=== PATIENT | male | born 1945 | race Caucasian/White ===

== ENCOUNTER → 2018-03-05 | Outpatient (CLI) | payer OTHER | LOC: M RAD 11:58 | DX: M54.5 Low back pain (principal); G25.0 Essential tremor | CPT/HCPCS: 70551 ==

== ENCOUNTER 2018-04-30 09:07 | Outpatient (CLI) | payer OTHER ==
[2018-04-30] MEDS ORDERED: PROHANCE 279.3MG/ML 15ML VIAL (A9576) As Ordered (09:26)
[2018-04-30] MEDS ORDERED: PROHANCE 279.3MG/ML 5ML VIAL (A9576) As Ordered (09:26)
[2018-04-30 09:57] LABS: BEDSIDE GLUCOSE 148 MG/DL (83-110)
[2018-04-30] MEDS ORDERED: MIDAZOLAM INJ 2 MG/2 ML VIAL (J2250) As Ordered (09:58)
[2018-04-30] MEDS ORDERED: ONDANSETRON 4MG/2ML VIAL (J2405) IV (11:30)
[2018-04-30] MEDS ORDERED: LR 1,000 ML IV (11:30)
== END 2018-04-30 11:42 | disposition home or self-care (01) ==
LOC: M SDC 09:07
DX: H81.8X9 Other disorders of vestibular function, unspecified ear (principal); G31.9 Degenerative disease of nervous system, unspecified; I67.81 Acute cerebrovascular insufficiency; M19.90 Unspecified osteoarthritis, unspecified site; H91.90 Unspecified hearing loss, unspecified ear; F41.9 Anxiety disorder, unspecified; Z88.5 Allergy status to narcotic agent; Z79.899 Other long term (current) drug therapy; Z79.4 Long term (current) use of insulin; Z79.82 Long term (current) use of aspirin; Z98.890 Other specified postprocedural states
CPT/HCPCS: 99156

== ENCOUNTER 2018-07-24 08:10 | Day surgery (SDC) | payer OTHER ==
[2018-07-24] MEDS: NS 1,000 ML IV (07:00)
[2018-07-24] MEDS ORDERED: PROPOFOL 200 MG/20 ML VIAL As Ordered ×2 (08:30→10:11)
[2018-07-24] MEDS ORDERED: LIDOCAINE 2% INJ 100 MG/5 ML SDV (FOR ANES.) As Ordered (08:30)
[2018-07-24] MEDS ORDERED: fentaNYL 100 MCG/2 ML INJECTION (J3010) As Ordered (09:50)
== END 2018-07-24 11:15 | disposition home or self-care (01) ==
LOC: M OPP 08:10
DX: Z12.11 Encounter for screening for malignant neoplasm of colon (principal); K64.0 First degree hemorrhoids; K57.30 Diverticulosis of large intestine without perforation or abscess without bleeding; K22.8 Other specified diseases of esophagus; K31.89 Other diseases of stomach and duodenum; R12 Heartburn; R93.3 Abnormal findings on diagnostic imaging of other parts of digestive tract; E11.9 Type 2 diabetes mellitus without complications; G47.30 Sleep apnea, unspecified; I10 Essential (primary) hypertension; E78.00 Pure hypercholesterolemia, unspecified; F41.9 Anxiety disorder, unspecified; Z79.4 Long term (current) use of insulin; Z79.82 Long term (current) use of aspirin; Z79.899 Other long term (current) drug therapy; Z79.891 Long term (current) use of opiate analgesic; Z88.5 Allergy status to narcotic agent; Z98.1 Arthrodesis status; Z87.891 Personal history of nicotine dependence
CPT/HCPCS: G0121

== ENCOUNTER → 2020-08-02 | Outpatient (CLI) | payer OTHER ==
[~2020-08-02] MED LIST: ALBU83IN INH; AMLO1TAB24 PO; ASPI81TA26 PO; ATEN25TA PO; ATOR40TA75 PO; CYAN1000VL IM; CYCL-707 PO; FERR324T12 PO; FISH7.5C PO; FLUO1SOL TOP; GABA-843 PO; GLARGINE SC; METF10004 PO; MIRA3350 PO; MULT1TAB10 PO; NOVOINJ3 SC; OMEP1CAP73 PO; PRIM250T8 PO; ROPI2TAB3 PO; TERA2CAP3 PO; TRAM50TA2 PO; XALA0.007 OU; ZOLO100T PO
--- NOTE | 2020-08-03 07:32 | REP ---
INDICATION: HTN, ULCER RT COMPARISON: None. TECHNIQUE: Fragoso scale and color Doppler evaluation using linear high frequency transducer. FINDINGS: Ultrasound examination of the right lower extremity deep venous structures from the common femoral vein to the popliteal vein demonstrates normal compressibility flow and wave patterns in response to respiration and augmentation. There is no evidence for deep venous thrombosis. IMPRESSION: No evidence for deep venous thrombosis. <Electronically signed by Raphael Hernandez > 08/03/20 [id number]
== END ==
LOC: M RAD 11:25
PROVIDERS: ATTEND Surgery
DX: I10 Essential (primary) hypertension (principal); L97.812 Non-pressure chronic ulcer of other part of right lower leg with fat layer exposed; I87.311 Chronic venous hypertension (idiopathic) with ulcer of right lower extremity

== ENCOUNTER → 2021-03-25 | Outpatient (CLI) | payer OTHER ==
[~2021-03-25] MED LIST changes: +GABA-282 PO; -GABA-843 PO
== END ==
LOC: M LABSMTC 11:24
PROVIDERS: ATTEND Anesthesiology
DX: Z01.818 Encounter for other preprocedural examination (principal); Z20.822 Contact with and (suspected) exposure to COVID-19

== ENCOUNTER 2021-03-29 13:09 | Outpatient (CLI) | payer OTHER ==
[2021-03-29] MEDS ORDERED: MIDAZOLAM INJ 2MG/2ML VIAL (J2250 PER 1MG) As Ordered ONE (13:48)
[2021-03-29 15:19] VITALS: BP 149/67
--- NOTE | 2021-03-29 15:28 | REP ---
INDICATION: LBP. COMPARISON: Comparison MRI study of the lumbar spine is from March 05, 2018.. TECHNIQUE: Sagittal and axial T1 and T2-weighted scans are acquired in the usual fashion with and without fat saturation. Sequences include spin echo, turbo spin-echo, and STIR imaging sequences. FINDINGS: Lumbar vertebral body heights are preserved. Alignment is normal. There is no evidence of spondylolysis or spondylolisthesis. The tip of the conus medullaris is normal in position and appearance at T12-L1. 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 The L1-2 level remains unremarkable. At L2-3, there is degenerative disc narrowing and decreased signal intensity. There is mild diffuse disc bulging at the L2-3 level. This indents the ventral margin of the thecal sac and is unchanged. There is mild facet and ligamentum flavum hypertrophy at L2-3. Canal size is borderline. At L3-4, moderate central canal stenosis is again noted due to combination of diffuse disc bulging, moderate ligamentum flavum and facet hypertrophy, and developmentally short pedicles. The midline AP dimension of the thecal sac at L3-4 is 6.5 mm. CSF signal intensity is effaced from the thecal sac at the level of the 3 4 disc bulge. There is mild bilateral neural foraminal narrowing at L3-4. These findings are unchanged. At L4-L5, there is degenerative disc narrowing, diffuse disc bulging, and posterior osteophytic ridging. There is fairly advanced left-sided L4-5 facet hypertrophy which is unchanged. Mild facet hypertrophy is noted on the right. There is central disc bulging at L4-5 eccentric somewhat to the left unchanged. There is mild bilateral neural foraminal narrowing from disc bulging, discogenic spurring, and facet hypertrophy. This is unchanged from the comparison study. At the L5-S1 level, there is no evidence of disc protrusion. Patient is status post right L5-S1 laminectomy with post laminectomy enlargement of the thecal sac. These findings are unchanged. IMPRESSION: Post-laminectomy changes L5-S1. Moderate central canal stenosis is again seen at L3-4. Bilateral neural foraminal narrowing at L3-4 and L4-5 unchanged. Diffuse disc bulging at L4-5 unchanged. Borderline canal size at L2-3 unchanged. <Electronically signed by Maximino Rosa > 03/29/21 [id number]
== END 2021-03-29 15:30 | disposition home or self-care (01) ==
LOC: M SDC 13:09
PROVIDERS: ATTEND Family Medicine
DX: M51.26 Other intervertebral disc displacement, lumbar region (principal); M54.5 Low back pain; M48.061 Spinal stenosis, lumbar region without neurogenic claudication; E11.9 Type 2 diabetes mellitus without complications; E78.5 Hyperlipidemia, unspecified; H91.92 Unspecified hearing loss, left ear; I10 Essential (primary) hypertension; I77.819 Aortic ectasia, unspecified site; R25.1 Tremor, unspecified; Z79.4 Long term (current) use of insulin; Z79.899 Other long term (current) drug therapy; Z87.891 Personal history of nicotine dependence
CPT/HCPCS: 72148; J2250

== ENCOUNTER → 2021-08-13 | Outpatient (CLI) | payer OTHER ==
[~2021-08-13] MED LIST changes: +JARD1TAB PO
== END ==
LOC: M LABSMTC 09:14
PROVIDERS: ATTEND Anesthesiology
DX: Z20.822 Contact with and (suspected) exposure to COVID-19 (principal)

== ENCOUNTER → 2021-08-16 | Outpatient (CLI) | payer OTHER ==
[~2021-08-16] MED LIST changes: +PROHANCE 279.3MG/ML 15ML VIAL As Ordered ONE; +PROHANCE 279.3MG/ML 5ML VIAL As Ordered ONE
[2021-08-16 11:28] LABS: BLOOD UREA NITROGEN 21 MG/DL (7-18); CALCIUM LEVEL 8.8 MG/DL (8.8-10.2); CARBON DIOXIDE LEVEL 26 MEQ/L (21-32); CHLORIDE LEVEL 108 MEQ/L (98-107); CREATININE FOR GFR 1.24 MG/DL (0.70-1.30); GLOMERULAR FILTRATION RATE > 60.0 (>42); GLUCOSE, FASTING 173 MG/DL (70-100); POTASSIUM SERUM 4.5 MEQ/L (3.5-5.1); SODIUM LEVEL 139 MEQ/L (136-145)
[2021-08-16 13:12] VITALS: BP 163/72
--- NOTE | 2021-08-16 19:52 | REPVR ---
PROCEDURE INFORMATION: Exam: MR Head Without and With Contrast Exam date and time: 08/16/2021 12:55 PM Age: 76 years old Clinical indication: Other: Tremor TECHNIQUE: Imaging protocol: MR of the head without and with intravenous contrast. Contrast material: PROHANCE; Contrast volume: 20 ml; Contrast route: INTRAVENOUS (IV); COMPARISON: MRI-Brain without Contrast 03/05/2018 12:30 PM FINDINGS: Brain: Mild nonspecific T2/FLAIR hyperintensities of the periventricular and deep subcortical white matter and meagan, most likely secondary to chronic small vessel ischemic change. No intracranial hemorrhage or extra-axial fluid collection. No evidence of mass effect or midline shift. No restricted diffusion to suggest acute infarct. No abnormal intracranial enhancement. Cerebral ventricles: Mild prominence of the ventricles and sulci, likely attributed to parenchymal volume loss. Bones/joints: Unremarkable. Paranasal sinuses: Normal as visualized. No acute sinusitis. Mastoid air cells: No mastoid effusion. Orbital cavity: Unremarkable. Soft tissues: Unremarkable. IMPRESSION: 1. No acute intracranial pathology. 2. Chronic findings, as above. Electronically signed by: Saroj Kelly On 08/16/2021 19:51:53 PM
== END ==
LOC: M RAD 10:04
PROVIDERS: ATTEND Family Medicine
DX: Z01.818 Encounter for other preprocedural examination (principal); R25.1 Tremor, unspecified
CPT/HCPCS: 70553; 80048; A9576

== ENCOUNTER → 2021-08-16 | Outpatient (CLI) | payer OTHER ==
[~2021-08-16] MED LIST changes: -PROHANCE 279.3MG/ML 15ML VIAL As Ordered ONE; -PROHANCE 279.3MG/ML 5ML VIAL As Ordered ONE
== END ==
LOC: M LAB 10:08
PROVIDERS: ATTEND Internal Medicine
DX: Z01.818 Encounter for other preprocedural examination (principal); R25.1 Tremor, unspecified

== ENCOUNTER → 2021-11-03 | Outpatient (REF) | payer OTHER | LOC: M LAB REF 15:37 | PROVIDERS: ATTEND Surgery | DX: L97.812 Non-pressure chronic ulcer of other part of right lower leg with fat layer exposed (principal) ==

== ENCOUNTER → 2022-02-28 | Outpatient (CLI) | payer OTHER ==
[~2022-02-28] MED LIST changes: +ALBU2.5V10 INH; -ALBU83IN INH
== END ==
LOC: M RAD 14:05
PROVIDERS: ATTEND Surgery
DX: I87.311 Chronic venous hypertension (idiopathic) with ulcer of right lower extremity (principal)

== ENCOUNTER 2022-03-12 14:57 | Inpatient (IN) | payer OTHER, MEDICARE ==
[~2022-03-12] VITALS: Ht 175.3 cm; Wt 93.0 kg
[2022-03-12 17:31] LABS: BASO % 0.3 % (0.0-1.0); EOS # 0.2 10^3/uL (0.0-0.5); EOS % 1.8 % (0.0-3.0); HEMATOCRIT 33.4 % (42.0-52.0); HEMOGLOBIN 12.9 g/dl (13.5-17.5); LYMPH % 10.7 % (24.0-44.0); MEAN CORPUSCULAR HEMOGLOBIN 35.3 pg (27.0-33.0); MEAN CORPUSCULAR VOLUME 91.5 fl (80.0-96.0); MONO # 0.7 10^3/uL (0.0-0.8); MONO % 7.1 % (2.0-8.0); NEUTROPHILS # 7.6 10^3/uL (1.5-8.5); PLATELET COUNT, AUTOMATED 113 10^3/uL (150-450); RED BLOOD COUNT 3.65 10^6/uL (4.30-6.10); WHITE BLOOD COUNT 9.6 10^3/uL (4.0-10.0)
[2022-03-12 17:37] LABS: MEAN CORPUSCULAR HGB CONC 38.6 g/dl (32.0-36.5)
[2022-03-12 17:38] LABS: CREATININE,RANDOM URINE 34.1 MG/DL
[2022-03-12 18:22] LABS: ALBUMIN 4.4 GM/DL (3.2-5.2); ALT/SGPT 26 U/L (12-78); BILIRUBIN,DIRECT 0.4 MG/DL (0.0-0.2); BILIRUBIN,TOTAL 0.8 MG/DL (0.2-1.0); BLOOD UREA NITROGEN 13 MG/DL (7-18); CALCIUM LEVEL 8.9 MG/DL (8.8-10.2); CARBON DIOXIDE LEVEL 21 MEQ/L (21-32); CHLORIDE LEVEL 83 MEQ/L (98-107); CREATININE FOR GFR 0.88 MG/DL (0.70-1.30); FREE T4 1.02 NG/DL (0.76-1.46); GLOMERULAR FILTRATION RATE > 60.0 (>42); GLUCOSE, FASTING 83 MG/DL (70-100); LIPASE 185 U/L (73-393); POTASSIUM SERUM 4.3 MEQ/L (3.5-5.1); TOTAL PROTEIN 7.7 GM/DL (6.4-8.2)
[2022-03-12 18:23] LABS: SODIUM LEVEL 117 MEQ/L (136-145)
[2022-03-12 18:26] LABS: RSV AMPLIFICATION NEGATIVE (NEGATIVE)
[2022-03-12 18:47] LABS: OSMOLALITY SERUM 233 MOSM/KG (280-301)
[2022-03-12] MEDS ORDERED: SODIUM CHLORIDE 3% 500 ML IV SCH ×2 (19:05→20:30)
[2022-03-12] MEDS: IPRATROPIUM 0.5MG/ALBUTEROL 2.5MG INH SOL UD 3ML (DUONEB) NEB SCH (20:00)
[2022-03-12] MEDS ORDERED: GLUCOSE 4GM CHEW TABLET PO PRN (20:30)
[2022-03-12] MEDS ORDERED: ALBUTEROL SULFATE 2.5 MG/0.5 ML INH NEB SOLN NEB PRN (20:30)
[2022-03-12] MEDS ORDERED: GLUCAGON INJ 1MG VIAL SC PRN (20:30)
[2022-03-12] MEDS ORDERED: DEXTROSE 50% 50 ML SYRINGE IV PRN (20:30)
[2022-03-12] MEDS ORDERED: BUSP5TA PO (20:30)
[2022-03-12] MEDS ORDERED: NEUR300C PO (20:30)
[2022-03-12] MEDS ORDERED: ONDA4TAB6 PO (20:30)
[2022-03-12] MEDS ORDERED: METF-839 PO (20:30)
[2022-03-12] MEDS ORDERED: PROP40TA62 PO (20:36)
[2022-03-12] MEDS ORDERED: JARD1TAB3 PO (20:36)
[2022-03-12] MEDS ORDERED: FINA5TAB2 PO (20:36)
[2022-03-12] MEDS ORDERED: AMLO10TA PO (20:36)
[2022-03-12] MEDS ORDERED: VITMTA PO (20:36)
[2022-03-12] MEDS ORDERED: HOME MED LIST COMPLETE! XX SCH (20:40)
[2022-03-12 20:54] LABS: URIC ACID 1.9 MG/DL (3.5-7.2)
[2022-03-12] MEDS ORDERED: SERTRALINE HCL 50 MG TAB PO SCH (21:00)
[2022-03-12] MEDS ORDERED: busPIRone 5 MG TAB PO PRN (21:00)
[2022-03-12] MEDS: PRIMIDONE 250 MG TAB PO SCH (21:00)
[2022-03-12] MEDS: PROPRANOLOL 20 MG TAB PO SCH (21:00)
[2022-03-12] MEDS ORDERED: ONDANSETRON 4MG ORAL DISINTEGRATING TAB PO PRN (21:00)
[2022-03-12 21:51] LABS: BLOOD UREA NITROGEN 15 MG/DL (7-18); CARBON DIOXIDE LEVEL 20 MEQ/L (21-32); CHLORIDE LEVEL 81 MEQ/L (98-107); CREATININE FOR GFR 0.68 MG/DL (0.70-1.30); GLOMERULAR FILTRATION RATE > 60.0 (>42); GLUCOSE, FASTING 117 MG/DL (70-100); POTASSIUM SERUM 3.7 MEQ/L (3.5-5.1); SODIUM LEVEL 114 MEQ/L (136-145)
[2022-03-13 00:46] LABS: BLOOD UREA NITROGEN 14 MG/DL (7-18); CALCIUM LEVEL 8.2 MG/DL (8.8-10.2); CARBON DIOXIDE LEVEL 19 MEQ/L (21-32); CHLORIDE LEVEL 82 MEQ/L (98-107); CREATININE FOR GFR 0.65 MG/DL (0.70-1.30); GLOMERULAR FILTRATION RATE > 60.0 (>42); GLUCOSE, FASTING 86 MG/DL (70-100); POTASSIUM SERUM 3.8 MEQ/L (3.5-5.1); SODIUM LEVEL 113 MEQ/L (136-145)
[2022-03-13] MEDS ORDERED: NS 500 ML IV ONE (01:50)
[2022-03-13 02:21] LABS: BLOOD UREA NITROGEN 12 MG/DL (7-18); CALCIUM LEVEL 8.6 MG/DL (8.8-10.2); CARBON DIOXIDE LEVEL 20 MEQ/L (21-32); CHLORIDE LEVEL 83 MEQ/L (98-107); GLOMERULAR FILTRATION RATE > 60.0 (>42); GLUCOSE, FASTING 84 MG/DL (70-100); POTASSIUM SERUM 3.8 MEQ/L (3.5-5.1); SODIUM LEVEL 114 MEQ/L (136-145)
[2022-03-13] MEDS ORDERED: SODIUM CHLORIDE 3% 500 ML IV SCH ×2 (03:00→09:30)
[2022-03-13 04:00] VITALS: BP 179/81
[2022-03-13] MEDS: rOPINIRole 1MG TAB PO SCH ×2 (05:32→23:28)
[2022-03-13] MEDS ORDERED: FUROSEMIDE 40MG/4ML VIAL (J1940) IV ONE (06:00)
[2022-03-13] MEDS: IPRATROPIUM 0.5MG/ALBUTEROL 2.5MG INH SOL UD 3ML (DUONEB) NEB SCH ×4 (07:24→20:25)
[2022-03-13 07:46] VITALS: BP 158/62
[2022-03-13 08:47] LABS: BLOOD UREA NITROGEN 11 MG/DL (7-18); CALCIUM LEVEL 8.5 MG/DL (8.8-10.2); CARBON DIOXIDE LEVEL 19 MEQ/L (21-32); CHLORIDE LEVEL 80 MEQ/L (98-107); CREATININE FOR GFR 0.77 MG/DL (0.70-1.30); GLOMERULAR FILTRATION RATE > 60.0 (>42); GLUCOSE, FASTING 88 MG/DL (70-100); POTASSIUM SERUM 3.3 MEQ/L (3.5-5.1); SODIUM LEVEL 113 MEQ/L (136-145)
[2022-03-13] MEDS: INSULIN LISPRO (NovoLOG) PER UNIT SC SCH ×3 (09:00→17:30)
[2022-03-13 09:12] LABS: BASO % 0.2 % (0.0-1.0); EOS # 0.1 10^3/uL (0.0-0.5); EOS % 1.4 % (0.0-3.0); HEMATOCRIT 29.4 % (42.0-52.0); HEMOGLOBIN 11.6 g/dl (13.5-17.5); LYMPH # 0.5 10^3/uL (1.5-5.0); LYMPH % 6.2 % (24.0-44.0); MEAN CORPUSCULAR HEMOGLOBIN 35.2 pg (27.0-33.0); MEAN CORPUSCULAR VOLUME 89.1 fl (80.0-96.0); MONO # 0.7 10^3/uL (0.0-0.8); MONO % 8.1 % (2.0-8.0); NEUTROPHILS # 6.7 10^3/uL (1.5-8.5); NEUTROPHILS % 82.7 % (36.0-66.0); PLATELET COUNT, AUTOMATED 132 10^3/uL (150-450); WHITE BLOOD COUNT 8.1 10^3/uL (4.0-10.0)
[2022-03-13 09:13] LABS: MEAN CORPUSCULAR HGB CONC 39.5 g/dl (32.0-36.5)
[2022-03-13] MEDS: POTASSIUM CHLORIDE 10MEQ SR TABLET PO SCH ×2 (09:43→23:27)
[2022-03-13] MEDS: PROPRANOLOL 20 MG TAB PO SCH ×2 (09:44→23:26)
[2022-03-13] MEDS: OMEPRAZOLE 20MG CAP PO SCH (09:44)
[2022-03-13] MEDS: ATORVASTATIN 20 MG TAB PO SCH (09:44)
[2022-03-13] MEDS: FINASTERIDE 5MG TAB PO SCH (09:44)
[2022-03-13] MEDS: PRIMIDONE 250 MG TAB PO SCH ×2 (09:44→23:28)
[2022-03-13] MEDS: HEPARIN SOD (PORCINE) 5000UNITS/ML 1ML VIAL/SYRINGE SC SCH ×2 (09:44→23:28)
[2022-03-13] MEDS: amLODIPine 5 MG TAB PO SCH (09:45)
[2022-03-13 10:12] LABS: OSMOLALITY URINE 271 MOSM/KG (50-1400)
[2022-03-13 10:17] LABS: SODIUM,RANDOM URINE 82 MEQ/L
[2022-03-13] MEDS ORDERED: TOLVAPTAN 15 MG TAB (SAMSCA) PO ONE (11:00)
[2022-03-13 12:21] VITALS: BP 152/70
[2022-03-13 13:23] LABS: BLOOD UREA NITROGEN 11 MG/DL (7-18); CALCIUM LEVEL 8.7 MG/DL (8.8-10.2); CARBON DIOXIDE LEVEL 21 MEQ/L (21-32); CHLORIDE LEVEL 84 MEQ/L (98-107); CREATININE FOR GFR 0.86 MG/DL (0.70-1.30); GLOMERULAR FILTRATION RATE > 60.0 (>42); GLUCOSE, FASTING 124 MG/DL (70-100); POTASSIUM SERUM 3.8 MEQ/L (3.5-5.1); SODIUM LEVEL 116 MEQ/L (136-145)
[2022-03-13] MEDS ORDERED: POTASSIUM CHLORIDE 10MEQ SR TABLET PO ONE (14:00)
[2022-03-13 16:00] VITALS: BP 150/60
[2022-03-13 19:06] LABS: BLOOD UREA NITROGEN 14 MG/DL (7-18); CALCIUM LEVEL 8.9 MG/DL (8.8-10.2); CARBON DIOXIDE LEVEL 21 MEQ/L (21-32); CHLORIDE LEVEL 93 MEQ/L (98-107); CREATININE FOR GFR 0.92 MG/DL (0.70-1.30); GLOMERULAR FILTRATION RATE > 60.0 (>42); GLUCOSE, FASTING 141 MG/DL (70-100); POTASSIUM SERUM 4.2 MEQ/L (3.5-5.1); SODIUM LEVEL 125 MEQ/L (136-145)
[2022-03-13 20:00] VITALS: BP 158/70
[2022-03-13 21:52] LABS: BLOOD UREA NITROGEN 16 MG/DL (7-18); CALCIUM LEVEL 8.9 MG/DL (8.8-10.2); CARBON DIOXIDE LEVEL 23 MEQ/L (21-32); CHLORIDE LEVEL 94 MEQ/L (98-107); GLOMERULAR FILTRATION RATE > 60.0 (>42); GLUCOSE, FASTING 127 MG/DL (70-100); POTASSIUM SERUM 4.4 MEQ/L (3.5-5.1); SODIUM LEVEL 125 MEQ/L (136-145)
[2022-03-14] VITALS: BP 159/65
[2022-03-14 01:23] LABS: BLOOD UREA NITROGEN 16 MG/DL (7-18); CALCIUM LEVEL 8.5 MG/DL (8.8-10.2); CARBON DIOXIDE LEVEL 23 MEQ/L (21-32); CHLORIDE LEVEL 95 MEQ/L (98-107); CREATININE FOR GFR 0.97 MG/DL (0.70-1.30); GLOMERULAR FILTRATION RATE > 60.0 (>42); GLUCOSE, FASTING 120 MG/DL (70-100); POTASSIUM SERUM 4.2 MEQ/L (3.5-5.1); SODIUM LEVEL 127 MEQ/L (136-145)
[2022-03-14 04:00] VITALS: BP 136/56
[2022-03-14 04:24] LABS: BASO % 0.1 % (0.0-1.0); EOS % 0.3 % (0.0-3.0); HEMATOCRIT 29.6 % (42.0-52.0); HEMOGLOBIN 11.4 g/dl (13.5-17.5); LYMPH # 0.7 10^3/uL (1.5-5.0); MEAN CORPUSCULAR HEMOGLOBIN 35.4 pg (27.0-33.0); MEAN CORPUSCULAR VOLUME 91.9 fl (80.0-96.0); MONO # 0.9 10^3/uL (0.0-0.8); MONO % 11.6 % (2.0-8.0); NEUTROPHILS # 6.2 10^3/uL (1.5-8.5); NEUTROPHILS % 78.1 % (36.0-66.0); PLATELET COUNT, AUTOMATED 141 10^3/uL (150-450); RED BLOOD COUNT 3.22 10^6/uL (4.30-6.10); WHITE BLOOD COUNT 7.9 10^3/uL (4.0-10.0)
[2022-03-14 04:40] LABS: BLOOD UREA NITROGEN 17 MG/DL (7-18); CALCIUM LEVEL 8.6 MG/DL (8.8-10.2); CARBON DIOXIDE LEVEL 23 MEQ/L (21-32); CHLORIDE LEVEL 97 MEQ/L (98-107); CREATININE FOR GFR 0.97 MG/DL (0.70-1.30); GLOMERULAR FILTRATION RATE > 60.0 (>42); GLUCOSE, FASTING 110 MG/DL (70-100); POTASSIUM SERUM 4.6 MEQ/L (3.5-5.1); SODIUM LEVEL 129 MEQ/L (136-145)
[2022-03-14 05:21] LABS: MEAN CORPUSCULAR HGB CONC 38.5 g/dl (32.0-36.5)
[2022-03-14] MEDS: IPRATROPIUM 0.5MG/ALBUTEROL 2.5MG INH SOL UD 3ML (DUONEB) NEB SCH ×4 (07:13→20:03)
[2022-03-14 08:00] VITALS: BP 140/60
[2022-03-14] MEDS: INSULIN LISPRO (NovoLOG) PER UNIT SC SCH ×3 (08:30→17:30)
[2022-03-14] MEDS: OMEPRAZOLE 20MG CAP PO SCH (09:37)
[2022-03-14] MEDS: ATORVASTATIN 20 MG TAB PO SCH (09:37)
[2022-03-14] MEDS: PRIMIDONE 250 MG TAB PO SCH ×2 (09:37→21:00)
[2022-03-14] MEDS: FINASTERIDE 5MG TAB PO SCH (09:37)
[2022-03-14] MEDS: HEPARIN SOD (PORCINE) 5000UNITS/ML 1ML VIAL/SYRINGE SC SCH ×2 (09:37→22:01)
[2022-03-14] MEDS: TOLVAPTAN 7.5 MG HALF-TAB PO SCH (09:38)
[2022-03-14] MEDS: amLODIPine 5 MG TAB PO SCH (09:38)
[2022-03-14] MEDS: PROPRANOLOL 20 MG TAB PO SCH ×2 (09:39→21:00)
[2022-03-14 12:00] VITALS: BP 153/64
[2022-03-14 16:00] VITALS: BP 169/68
[2022-03-14 19:47] VITALS: BP 136/60
[2022-03-14] MEDS: rOPINIRole 1MG TAB PO SCH (22:01)
[2022-03-15] VITALS: BP 148/63
[2022-03-15 04:00] VITALS: BP 138/65
[2022-03-15 06:24] LABS: BLOOD UREA NITROGEN 24 MG/DL (7-18); CALCIUM LEVEL 9.6 MG/DL (8.8-10.2); CARBON DIOXIDE LEVEL 23 MEQ/L (21-32); CHLORIDE LEVEL 101 MEQ/L (98-107); CREATININE FOR GFR 1.04 MG/DL (0.70-1.30); GLOMERULAR FILTRATION RATE > 60.0 (>42); GLUCOSE, FASTING 113 MG/DL (70-100); POTASSIUM SERUM 4.3 MEQ/L (3.5-5.1); SODIUM LEVEL 132 MEQ/L (136-145)
[2022-03-15 06:50] LABS: BASO % 0.4 % (0.0-1.0); EOS # 0.1 10^3/uL (0.0-0.5); EOS % 2.5 % (0.0-3.0); HEMOGLOBIN 11.2 g/dl (13.5-17.5); LYMPH % 18.2 % (24.0-44.0); MEAN CORPUSCULAR HEMOGLOBIN 35.8 pg (27.0-33.0); MEAN CORPUSCULAR VOLUME 95.8 fl (80.0-96.0); MONO # 0.7 10^3/uL (0.0-0.8); MONO % 11.7 % (2.0-8.0); NEUTROPHILS # 3.8 10^3/uL (1.5-8.5); NEUTROPHILS % 66.5 % (36.0-66.0); PLATELET COUNT, AUTOMATED 130 10^3/uL (150-450); RED BLOOD COUNT 3.13 10^6/uL (4.30-6.10); WHITE BLOOD COUNT 5.7 10^3/uL (4.0-10.0)
[2022-03-15 06:54] LABS: MEAN CORPUSCULAR HGB CONC 37.3 g/dl (32.0-36.5)
[2022-03-15 07:42] VITALS: BP 154/70
[2022-03-15] MEDS: IPRATROPIUM 0.5MG/ALBUTEROL 2.5MG INH SOL UD 3ML (DUONEB) NEB SCH ×4 (08:00→19:52)
[2022-03-15] MEDS: FINASTERIDE 5MG TAB PO SCH (09:36)
[2022-03-15] MEDS: HEPARIN SOD (PORCINE) 5000UNITS/ML 1ML VIAL/SYRINGE SC SCH ×2 (09:36→20:12)
[2022-03-15] MEDS: PROPRANOLOL 20 MG TAB PO SCH ×2 (09:36→20:12)
[2022-03-15] MEDS: OMEPRAZOLE 20MG CAP PO SCH (09:36)
[2022-03-15] MEDS: TOLVAPTAN 7.5 MG HALF-TAB PO SCH (09:36)
[2022-03-15] MEDS: ATORVASTATIN 20 MG TAB PO SCH (09:37)
[2022-03-15] MEDS: amLODIPine 5 MG TAB PO SCH (09:37)
[2022-03-15] MEDS: PRIMIDONE 250 MG TAB PO SCH ×2 (09:37→20:12)
[2022-03-15] MEDS: INSULIN LISPRO (NovoLOG) PER UNIT SC SCH ×3 (09:38→18:05)
[2022-03-15 12:08] VITALS: BP 130/62
[2022-03-15 15:52] VITALS: BP 144/63
[2022-03-15] MEDS: oxyBUTYnin 5 MG TAB PO SCH ×2 (17:26→23:19)
[2022-03-15 20:03] VITALS: BP 174/56
[2022-03-15] MEDS: MIRALAX *UNIT DOSE* 17GM PACKET PO PRN (20:11)
[2022-03-15] MEDS ORDERED: oxyBUTYnin *DITROPAN XL* 5 MG TABCR PO SCH (21:00)
[2022-03-15] MEDS: rOPINIRole 2MG TAB PO SCH (23:19)
[2022-03-16] VITALS: BP 180/70
[2022-03-16] MEDS ORDERED: **hydrALAZINE HCL** 25 MG TAB PO ONE (01:00)
[2022-03-16 04:00] VITALS: BP 132/61
[2022-03-16 04:56] LABS: BASO % 0.2 % (0.0-1.0); EOS # 0.2 10^3/uL (0.0-0.5); EOS % 3.7 % (0.0-3.0); HEMATOCRIT 27.7 % (42.0-52.0); HEMOGLOBIN 10.3 g/dl (13.5-17.5); LYMPH # 1.2 10^3/uL (1.5-5.0); LYMPH % 19.9 % (24.0-44.0); MEAN CORPUSCULAR HEMOGLOBIN 35.6 pg (27.0-33.0); MEAN CORPUSCULAR HGB CONC 37.2 g/dl (32.0-36.5); MEAN CORPUSCULAR VOLUME 95.8 fl (80.0-96.0); MONO # 0.6 10^3/uL (0.0-0.8); MONO % 9.8 % (2.0-8.0); NEUTROPHILS # 4.1 10^3/uL (1.5-8.5); NEUTROPHILS % 65.8 % (36.0-66.0); PLATELET COUNT, AUTOMATED 114 10^3/uL (150-450); RED BLOOD COUNT 2.89 10^6/uL (4.30-6.10); WHITE BLOOD COUNT 6.2 10^3/uL (4.0-10.0)
[2022-03-16 05:22] LABS: BLOOD UREA NITROGEN 24 MG/DL (7-18); CALCIUM LEVEL 8.9 MG/DL (8.8-10.2); CARBON DIOXIDE LEVEL 23 MEQ/L (21-32); CHLORIDE LEVEL 101 MEQ/L (98-107); CREATININE FOR GFR 0.93 MG/DL (0.70-1.30); GLOMERULAR FILTRATION RATE > 60.0 (>42); GLUCOSE, FASTING 138 MG/DL (70-100); POTASSIUM SERUM 4.3 MEQ/L (3.5-5.1); SODIUM LEVEL 131 MEQ/L (136-145)
[2022-03-16] MEDS: IPRATROPIUM 0.5MG/ALBUTEROL 2.5MG INH SOL UD 3ML (DUONEB) NEB SCH ×4 (07:14→19:20)
[2022-03-16 08:00] VITALS: BP 141/64
[2022-03-16] MEDS: FINASTERIDE 5MG TAB PO SCH (09:07)
[2022-03-16] MEDS: HEPARIN SOD (PORCINE) 5000UNITS/ML 1ML VIAL/SYRINGE SC SCH ×2 (09:07→20:14)
[2022-03-16] MEDS: INSULIN LISPRO (NovoLOG) PER UNIT SC SCH ×3 (09:07→17:34)
[2022-03-16] MEDS: oxyBUTYnin 5 MG TAB PO SCH ×3 (09:08→22:49)
[2022-03-16] MEDS: TOLVAPTAN 7.5 MG HALF-TAB PO SCH (09:08)
[2022-03-16] MEDS: PROPRANOLOL 20 MG TAB PO SCH ×2 (09:08→20:15)
[2022-03-16] MEDS: OMEPRAZOLE 20MG CAP PO SCH (09:08)
[2022-03-16] MEDS: PRIMIDONE 250 MG TAB PO SCH ×2 (09:09→20:15)
[2022-03-16] MEDS: ATORVASTATIN 20 MG TAB PO SCH (09:09)
[2022-03-16] MEDS ORDERED: MOM 30ML SUSPENSION UDC PO ONE (10:45)
[2022-03-16] MEDS: SIMETHICONE 80MG CHEW TAB PO SCH ×3 (10:59→22:49)
[2022-03-16 12:00] VITALS: BP 140/65
[2022-03-16 15:34] VITALS: BP 145/64
[2022-03-16] MEDS: BISACODYL 10 MG SUPP PR PRN (18:36)
[2022-03-16 20:00] VITALS: BP 162/70
[2022-03-16] MEDS: rOPINIRole 2MG TAB PO SCH (21:52)
[2022-03-16] MEDS ORDERED: ACETAMINOPHEN TAB 650MG DOSE (2X325MG) PO PRN (22:25)
[2022-03-17] VITALS (7 sets, daily range): BP systolic 127–175; BP diastolic 60–77
[2022-03-17] MEDS: SIMETHICONE 80MG CHEW TAB PO SCH ×3 (05:08→18:23)
[2022-03-17 05:42] LABS: BASO % 0.2 % (0.0-1.0); EOS # 0.3 10^3/uL (0.0-0.5); EOS % 5.2 % (0.0-3.0); HEMATOCRIT 29.2 % (42.0-52.0); HEMOGLOBIN 10.7 g/dl (13.5-17.5); LYMPH # 1.2 10^3/uL (1.5-5.0); LYMPH % 20.5 % (24.0-44.0); MEAN CORPUSCULAR VOLUME 95.4 fl (80.0-96.0); MONO # 0.6 10^3/uL (0.0-0.8); MONO % 10.3 % (2.0-8.0); NEUTROPHILS # 3.6 10^3/uL (1.5-8.5); NEUTROPHILS % 62.9 % (36.0-66.0); PLATELET COUNT, AUTOMATED 122 10^3/uL (150-450); RED BLOOD COUNT 3.06 10^6/uL (4.30-6.10); WHITE BLOOD COUNT 5.8 10^3/uL (4.0-10.0)
[2022-03-17 05:43] LABS: MEAN CORPUSCULAR HGB CONC 36.6 g/dl (32.0-36.5)
[2022-03-17 05:56] LABS: BLOOD UREA NITROGEN 24 MG/DL (7-18); CALCIUM LEVEL 9.4 MG/DL (8.8-10.2); CARBON DIOXIDE LEVEL 23 MEQ/L (21-32); CHLORIDE LEVEL 103 MEQ/L (98-107); CREATININE FOR GFR 0.93 MG/DL (0.70-1.30); GLOMERULAR FILTRATION RATE > 60.0 (>42); GLUCOSE, FASTING 134 MG/DL (70-100); POTASSIUM SERUM 4.2 MEQ/L (3.5-5.1); SODIUM LEVEL 134 MEQ/L (136-145)
[2022-03-17] MEDS: IPRATROPIUM 0.5MG/ALBUTEROL 2.5MG INH SOL UD 3ML (DUONEB) NEB SCH ×4 (07:02→20:06)
[2022-03-17] MEDS ORDERED: FLEET ENEMA PR ONE (08:20)
[2022-03-17] MEDS: HEPARIN SOD (PORCINE) 5000UNITS/ML 1ML VIAL/SYRINGE SC SCH ×2 (08:55→21:00)
[2022-03-17] MEDS: INSULIN LISPRO (NovoLOG) PER UNIT SC SCH ×3 (08:56→18:24)
[2022-03-17] MEDS: oxyBUTYnin 5 MG TAB PO SCH ×2 (08:56→16:25)
[2022-03-17] MEDS: TOLVAPTAN 7.5 MG HALF-TAB PO SCH (08:56)
[2022-03-17] MEDS: ATORVASTATIN 20 MG TAB PO SCH (08:56)
[2022-03-17] MEDS: TAMSULOSIN 0.4 MG CAP PO SCH ×2 (08:56→21:57)
[2022-03-17] MEDS: OMEPRAZOLE 20MG CAP PO SCH (08:57)
[2022-03-17] MEDS: PROPRANOLOL 20 MG TAB PO SCH ×2 (08:57→21:00)
[2022-03-17] MEDS: PRIMIDONE 250 MG TAB PO SCH ×2 (08:57→21:58)
[2022-03-17] MEDS: rOPINIRole 2MG TAB PO SCH (21:58)
[2022-03-17] MEDS ORDERED: amLODIPine 5 MG TAB PO ONE (22:05)
[2022-03-18] MEDS: SIMETHICONE 80MG CHEW TAB PO SCH ×5 (00:46→23:53)
[2022-03-18] MEDS: oxyBUTYnin 5 MG TAB PO SCH ×2 (00:46→09:00)
[2022-03-18 05:39] VITALS: BP 157/66
[2022-03-18 06:41] LABS: BASO % 0.4 % (0.0-1.0); EOS # 0.3 10^3/uL (0.0-0.5); EOS % 5.5 % (0.0-3.0); HEMOGLOBIN 10.4 g/dl (13.5-17.5); LYMPH # 0.9 10^3/uL (1.5-5.0); MEAN CORPUSCULAR HEMOGLOBIN 34.1 pg (27.0-33.0); MEAN CORPUSCULAR HGB CONC 35.9 g/dl (32.0-36.5); MEAN CORPUSCULAR VOLUME 95.1 fl (80.0-96.0); MONO # 0.5 10^3/uL (0.0-0.8); MONO % 10.2 % (2.0-8.0); NEUTROPHILS # 3.2 10^3/uL (1.5-8.5); NEUTROPHILS % 65.3 % (36.0-66.0); PLATELET COUNT, AUTOMATED 103 10^3/uL (150-450); RED BLOOD COUNT 3.05 10^6/uL (4.30-6.10); WHITE BLOOD COUNT 4.9 10^3/uL (4.0-10.0)
[2022-03-18 07:03] LABS: BLOOD UREA NITROGEN 19 MG/DL (7-18); CALCIUM LEVEL 9.3 MG/DL (8.8-10.2); CARBON DIOXIDE LEVEL 25 MEQ/L (21-32); CHLORIDE LEVEL 101 MEQ/L (98-107); CREATININE FOR GFR 0.88 MG/DL (0.70-1.30); GLOMERULAR FILTRATION RATE > 60.0 (>42); GLUCOSE, FASTING 164 MG/DL (70-100); POTASSIUM SERUM 4.1 MEQ/L (3.5-5.1); SODIUM LEVEL 132 MEQ/L (136-145)
[2022-03-18] MEDS: IPRATROPIUM 0.5MG/ALBUTEROL 2.5MG INH SOL UD 3ML (DUONEB) NEB SCH ×4 (07:25→19:52)
[2022-03-18] MEDS ORDERED: ROPI2TAB3 PO (08:00)
[2022-03-18] MEDS ORDERED: MIRA1POW3 PO (08:00)
[2022-03-18] MEDS ORDERED: OXYB5TAB10 PO (08:00)
[2022-03-18] MEDS ORDERED: SIME80TA16 PO (08:00)
[2022-03-18] MEDS ORDERED: AMLO10TA PO (08:00)
[2022-03-18] MEDS ORDERED: TOLV15TAB PO (08:00)
[2022-03-18] MEDS ORDERED: FLOM0.4C39 PO (08:00)
[2022-03-18] MEDS: TAMSULOSIN 0.4 MG CAP PO SCH ×2 (09:00→21:59)
[2022-03-18] MEDS: ATORVASTATIN 20 MG TAB PO SCH (09:01)
[2022-03-18] MEDS: PROPRANOLOL 20 MG TAB PO SCH ×2 (09:01→22:00)
[2022-03-18] MEDS: OMEPRAZOLE 20MG CAP PO SCH (09:01)
[2022-03-18] MEDS: PRIMIDONE 250 MG TAB PO SCH ×2 (09:01→21:59)
[2022-03-18] MEDS: TOLVAPTAN 7.5 MG HALF-TAB PO SCH (09:01)
[2022-03-18] MEDS: HEPARIN SOD (PORCINE) 5000UNITS/ML 1ML VIAL/SYRINGE SC SCH ×2 (09:02→21:59)
[2022-03-18] MEDS: INSULIN LISPRO (NovoLOG) PER UNIT SC SCH ×3 (09:02→17:13)
[2022-03-18 10:00] VITALS: BP 141/53
[2022-03-18 14:00] VITALS: BP 137/51
[2022-03-18 18:00] VITALS: BP 146/55
[2022-03-18 21:44] VITALS: BP 150/54
[2022-03-18] MEDS: rOPINIRole 2MG TAB PO SCH (21:59)
[2022-03-19 01:55] VITALS: BP 142/55
[2022-03-19 05:45] VITALS: BP 141/53
[2022-03-19 06:18] LABS: BASO % 0.2 % (0.0-1.0); EOS # 0.2 10^3/uL (0.0-0.5); EOS % 5.1 % (0.0-3.0); HEMATOCRIT 27.6 % (42.0-52.0); HEMOGLOBIN 10.3 g/dl (13.5-17.5); LYMPH # 0.9 10^3/uL (1.5-5.0); LYMPH % 20.7 % (24.0-44.0); MEAN CORPUSCULAR HEMOGLOBIN 35.2 pg (27.0-33.0); MEAN CORPUSCULAR HGB CONC 37.3 g/dl (32.0-36.5); MEAN CORPUSCULAR VOLUME 94.2 fl (80.0-96.0); MONO # 0.4 10^3/uL (0.0-0.8); MONO % 8.6 % (2.0-8.0); NEUTROPHILS # 2.9 10^3/uL (1.5-8.5); NEUTROPHILS % 64.1 % (36.0-66.0); RED BLOOD COUNT 2.93 10^6/uL (4.30-6.10); WHITE BLOOD COUNT 4.5 10^3/uL (4.0-10.0)
[2022-03-19] MEDS: SIMETHICONE 80MG CHEW TAB PO SCH ×3 (06:34→18:11)
[2022-03-19 06:35] LABS: BLOOD UREA NITROGEN 18 MG/DL (7-18); CALCIUM LEVEL 9.1 MG/DL (8.8-10.2); CARBON DIOXIDE LEVEL 25 MEQ/L (21-32); CHLORIDE LEVEL 98 MEQ/L (98-107); CREATININE FOR GFR 0.85 MG/DL (0.70-1.30); GLOMERULAR FILTRATION RATE > 60.0 (>42); GLUCOSE, FASTING 156 MG/DL (70-100); POTASSIUM SERUM 3.9 MEQ/L (3.5-5.1); SODIUM LEVEL 130 MEQ/L (136-145)
[2022-03-19 06:57] LABS: PLATELET COUNT, AUTOMATED 98 10^3/uL (150-450)
[2022-03-19] MEDS: IPRATROPIUM 0.5MG/ALBUTEROL 2.5MG INH SOL UD 3ML (DUONEB) NEB SCH ×4 (07:36→19:56)
[2022-03-19] MEDS: HEPARIN SOD (PORCINE) 5000UNITS/ML 1ML VIAL/SYRINGE SC SCH ×2 (09:25→21:08)
[2022-03-19] MEDS: INSULIN LISPRO (NovoLOG) PER UNIT SC SCH ×3 (09:25→18:12)
[2022-03-19] MEDS: TOLVAPTAN 7.5 MG HALF-TAB PO SCH (09:25)
[2022-03-19] MEDS: TAMSULOSIN 0.4 MG CAP PO SCH ×2 (09:25→21:09)
[2022-03-19] MEDS: PRIMIDONE 250 MG TAB PO SCH ×2 (09:25→21:09)
[2022-03-19] MEDS: ATORVASTATIN 20 MG TAB PO SCH (09:25)
[2022-03-19] MEDS: OMEPRAZOLE 20MG CAP PO SCH (09:25)
[2022-03-19] MEDS: PROPRANOLOL 20 MG TAB PO SCH ×2 (09:26→21:09)
[2022-03-19] MEDS: MIRALAX *UNIT DOSE* 17GM PACKET PO PRN (09:34)
[2022-03-19 10:00] VITALS: BP 154/58
[2022-03-19 14:00] VITALS: BP 140/65
[2022-03-19 20:56] VITALS: BP 149/71
[2022-03-19] MEDS: rOPINIRole 2MG TAB PO SCH (21:09)
[2022-03-20] MEDS: SIMETHICONE 80MG CHEW TAB PO SCH ×4 (01:35→17:23)
[2022-03-20 05:51] VITALS: BP 123/49
[2022-03-20 06:40] LABS: BASO % 0.1 % (0.0-1.0); EOS # 0.1 10^3/uL (0.0-0.5); EOS % 1.2 % (0.0-3.0); HEMATOCRIT 29.3 % (42.0-52.0); HEMOGLOBIN 10.9 g/dl (13.5-17.5); LYMPH # 0.6 10^3/uL (1.5-5.0); MEAN CORPUSCULAR HEMOGLOBIN 34.7 pg (27.0-33.0); MEAN CORPUSCULAR VOLUME 93.3 fl (80.0-96.0); MONO # 0.8 10^3/uL (0.0-0.8); MONO % 8.9 % (2.0-8.0); NEUTROPHILS # 6.9 10^3/uL (1.5-8.5); NEUTROPHILS % 81.9 % (36.0-66.0); PLATELET COUNT, AUTOMATED 101 10^3/uL (150-450); RED BLOOD COUNT 3.14 10^6/uL (4.30-6.10); WHITE BLOOD COUNT 8.5 10^3/uL (4.0-10.0)
[2022-03-20 06:47] LABS: MEAN CORPUSCULAR HGB CONC 37.2 g/dl (32.0-36.5)
[2022-03-20 07:02] LABS: BLOOD UREA NITROGEN 19 MG/DL (7-18); CALCIUM LEVEL 9.5 MG/DL (8.8-10.2); CARBON DIOXIDE LEVEL 24 MEQ/L (21-32); CHLORIDE LEVEL 96 MEQ/L (98-107); CREATININE FOR GFR 0.97 MG/DL (0.70-1.30); GLOMERULAR FILTRATION RATE > 60.0 (>42); GLUCOSE, FASTING 194 MG/DL (70-100); POTASSIUM SERUM 4.2 MEQ/L (3.5-5.1); SODIUM LEVEL 128 MEQ/L (136-145)
[2022-03-20] MEDS: IPRATROPIUM 0.5MG/ALBUTEROL 2.5MG INH SOL UD 3ML (DUONEB) NEB SCH ×4 (07:08→19:27)
[2022-03-20] MEDS: INSULIN LISPRO (NovoLOG) PER UNIT SC SCH ×3 (08:33→17:23)
[2022-03-20] MEDS: SODIUM CHLORIDE 1 GM TAB PO SCH ×2 (10:29→13:00)
[2022-03-20] MEDS: ATORVASTATIN 20 MG TAB PO SCH (10:29)
[2022-03-20] MEDS: TAMSULOSIN 0.4 MG CAP PO SCH ×2 (10:29→22:21)
[2022-03-20] MEDS: OMEPRAZOLE 20MG CAP PO SCH (10:29)
[2022-03-20] MEDS: PROPRANOLOL 20 MG TAB PO SCH ×2 (10:30→22:23)
[2022-03-20] MEDS: TOLVAPTAN 15 MG TAB (SAMSCA) PO SCH ×2 (10:30→15:21)
[2022-03-20] MEDS: PRIMIDONE 250 MG TAB PO SCH ×2 (10:34→22:21)
[2022-03-20 12:00] VITALS: BP 142/51
[2022-03-20 14:00] VITALS: BP 143/53
[2022-03-20] MEDS ORDERED: TOLVAPTAN 7.5 MG HALF-TAB PO ONE (14:00)
[2022-03-20] MEDS ORDERED: SODIUM CHLORIDE 1 GM TAB PO SCH (17:00)
[2022-03-20 22:00] VITALS: BP 142/53
[2022-03-20] MEDS: rOPINIRole 2MG TAB PO SCH (22:21)
[2022-03-20] MEDS: IBUPROFEN 600MG TAB PO PRN (22:22)
[2022-03-21] MEDS ORDERED: TOLVAPTAN 15 MG TAB (SAMSCA) PO SCH
[2022-03-21] MEDS: SIMETHICONE 80MG CHEW TAB PO SCH ×4 (00:29→18:22)
[2022-03-21 06:00] VITALS: BP 118/46
[2022-03-21] MEDS: IPRATROPIUM 0.5MG/ALBUTEROL 2.5MG INH SOL UD 3ML (DUONEB) NEB SCH ×4 (07:13→20:29)
[2022-03-21] MEDS: TAMSULOSIN 0.4 MG CAP PO SCH ×2 (09:22→22:00)
[2022-03-21] MEDS: ATORVASTATIN 20 MG TAB PO SCH (09:22)
[2022-03-21] MEDS: OMEPRAZOLE 20MG CAP PO SCH (09:22)
[2022-03-21] MEDS: PRIMIDONE 250 MG TAB PO SCH ×2 (09:22→22:01)
[2022-03-21] MEDS: INSULIN LISPRO (NovoLOG) PER UNIT SC SCH ×3 (09:23→18:22)
[2022-03-21] MEDS: PROPRANOLOL 20 MG TAB PO SCH ×2 (09:25→22:03)
[2022-03-21] MEDS: TOLVAPTAN 15 MG TAB (SAMSCA) PO SCH (12:55)
[2022-03-21 14:00] VITALS: BP 115/48
[2022-03-21] MEDS: MIRALAX *UNIT DOSE* 17GM PACKET PO PRN (15:56)
[2022-03-21] MEDS: BISACODYL 10 MG SUPP PR PRN (15:56)
[2022-03-21 22:00] VITALS: BP 139/51
[2022-03-21] MEDS: rOPINIRole 2MG TAB PO SCH (22:01)
[2022-03-21] MEDS: IBUPROFEN 600MG TAB PO PRN (22:01)
[2022-03-22] MEDS ORDERED: TOLVAPTAN 15 MG TAB (SAMSCA) PO SCH
[2022-03-22 06:00] VITALS: BP 125/51
[2022-03-22 06:01] LABS: HEMATOCRIT 24.9 % (42.0-52.0); HEMOGLOBIN 9.2 g/dl (13.5-17.5); MEAN CORPUSCULAR HEMOGLOBIN 35.4 pg (27.0-33.0); MEAN CORPUSCULAR VOLUME 95.8 fl (80.0-96.0); PLATELET COUNT, AUTOMATED 115 10^3/uL (150-450); WHITE BLOOD COUNT 6.8 10^3/uL (4.0-10.0)
[2022-03-22 06:10] LABS: MEAN CORPUSCULAR HGB CONC 36.9 g/dl (32.0-36.5)
[2022-03-22] MEDS: SIMETHICONE 80MG CHEW TAB PO SCH ×3 (06:22→13:53)
[2022-03-22 06:27] LABS: BLOOD UREA NITROGEN 27 MG/DL (7-18); CALCIUM LEVEL 8.9 MG/DL (8.8-10.2); CARBON DIOXIDE LEVEL 23 MEQ/L (21-32); CHLORIDE LEVEL 102 MEQ/L (98-107); CREATININE FOR GFR 1.12 MG/DL (0.70-1.30); GLOMERULAR FILTRATION RATE > 60.0 (>42); GLUCOSE, FASTING 223 MG/DL (70-100); POTASSIUM SERUM 3.9 MEQ/L (3.5-5.1); SODIUM LEVEL 132 MEQ/L (136-145)
[2022-03-22] MEDS: IPRATROPIUM 0.5MG/ALBUTEROL 2.5MG INH SOL UD 3ML (DUONEB) NEB SCH ×2 (07:12→12:00)
[2022-03-22] MEDS: TAMSULOSIN 0.4 MG CAP PO SCH (08:19)
[2022-03-22] MEDS: INSULIN LISPRO (NovoLOG) PER UNIT SC SCH ×2 (08:19→13:53)
[2022-03-22] MEDS: OMEPRAZOLE 20MG CAP PO SCH (08:19)
[2022-03-22] MEDS: PRIMIDONE 250 MG TAB PO SCH (08:19)
[2022-03-22] MEDS: ATORVASTATIN 20 MG TAB PO SCH (08:19)
[2022-03-22 08:20] VITALS: BP 132/45
[2022-03-22] MEDS: PROPRANOLOL 20 MG TAB PO SCH (08:20)
[2022-03-22] MEDS: MIRALAX *UNIT DOSE* 17GM PACKET PO PRN (08:26)
[2022-03-22] MEDS: TOLVAPTAN 15 MG TAB (SAMSCA) PO SCH (09:07)
[2022-03-22 14:00] VITALS: BP 133/46
== END 2022-03-22 15:31 | disposition home health service (06) | DRG 643 ==
LOC: M ED 14:57 → M ED INP 20:28 → ENRESERV 23:20 → M PCU 03-13 03:30 → M MSPAV 03-17 23:04
PROVIDERS: ADMIT Internal Medicine; ATTEND Family Medicine
DX: E22.2 Syndrome of inappropriate secretion of antidiuretic hormone (principal); G93.41 Metabolic encephalopathy; L97.919 Non-pressure chronic ulcer of unspecified part of right lower leg with unspecified severity; C34.92 Malignant neoplasm of unspecified part of left bronchus or lung; R91.1 Solitary pulmonary nodule; J44.9 Chronic obstructive pulmonary disease, unspecified; F32.A Depression, unspecified; G25.0 Essential tremor; Z20.822 Contact with and (suspected) exposure to COVID-19; E11.9 Type 2 diabetes mellitus without complications; I10 Essential (primary) hypertension; Z87.891 Personal history of nicotine dependence; K21.9 Gastro-esophageal reflux disease without esophagitis; M43.26 Fusion of spine, lumbar region; Z79.84 Long term (current) use of oral hypoglycemic drugs; Z79.899 Other long term (current) drug therapy; G25.81 Restless legs syndrome; N40.1 Benign prostatic hyperplasia with lower urinary tract symptoms; E87.6 Hypokalemia; D64.9 Anemia, unspecified

== ENCOUNTER → 2022-03-29 | Outpatient (REF) | payer MEDICARE ==
[~2022-03-29] MED LIST changes: +AMLO10TA PO; +BUSP5TA PO; +FINA5TAB2 PO; +FLOM0.4C39 PO; +JARD1TAB3 PO; +METF-839 PO; +MIRA1POW3 PO; +NEUR300C PO; +ONDA4TAB6 PO; +OXYB5TAB10 PO; +PROP40TA62 PO; +SIME80TA16 PO; +TOLV15TAB PO; +VITMTA PO
[2022-03-29 15:48] LABS: BLOOD UREA NITROGEN 17 MG/DL (7-18); CALCIUM LEVEL 8.7 MG/DL (8.8-10.2); CARBON DIOXIDE LEVEL 25 MEQ/L (21-32); CHLORIDE LEVEL 104 MEQ/L (98-107); CREATININE FOR GFR 1.12 MG/DL (0.70-1.30); GLOMERULAR FILTRATION RATE > 60.0 (>42); GLUCOSE, FASTING 137 MG/DL (70-100); POTASSIUM SERUM 4.7 MEQ/L (3.5-5.1); SODIUM LEVEL 135 MEQ/L (136-145)
== END ==
LOC: M LAB REF 13:33
PROVIDERS: ATTEND Internal Medicine Pulmonary Disease
DX: C34.32 Malignant neoplasm of lower lobe, left bronchus or lung (principal)

== ENCOUNTER → 2022-04-03 | Outpatient (CLI) | payer MEDICARE | LOC: M PLARAD 13:10 | PROVIDERS: ATTEND Family Medicine | DX: C34.32 Malignant neoplasm of lower lobe, left bronchus or lung (principal); R59.0 Localized enlarged lymph nodes | CPT/HCPCS: 78815; A9552 ==

== ENCOUNTER → 2022-04-07 | Outpatient (CLI) | payer MEDICARE ==
[~2022-04-07] MED LIST changes: +CIPR-249 PO; +INSUH10VL SQ; +INSULANT SC
== END ==
LOC: M RAD 16:41
PROVIDERS: ATTEND Internal Medicine Pulmonary Disease
DX: R91.8 Other nonspecific abnormal finding of lung field (principal); D35.00 Benign neoplasm of unspecified adrenal gland; K21.9 Gastro-esophageal reflux disease without esophagitis; J84.9 Interstitial pulmonary disease, unspecified

== ENCOUNTER → 2022-04-09 | Outpatient (CLI) | payer MEDICARE | LOC: M LABSMTC 09:17 | PROVIDERS: ATTEND Anesthesiology | DX: Z11.52 Encounter for screening for COVID-19 (principal); Z20.822 Contact with and (suspected) exposure to COVID-19 ==

== ENCOUNTER 2022-04-13 09:38 | Inpatient (IN) | payer MEDICARE, OTHER ==
[~2022-04-13] VITALS: Ht 175.3 cm; Wt 93.0 kg
[~2022-04-13 09:38] MED LIST changes: +ALBUTEROL SULFATE 2.5 MG/0.5 ML INH NEB SOLN INH ONE; -CIPR-249 PO; +FISH10005 PO; -FISH7.5C PO; +LIDOCAINE 4% INJ 5ML AMP NEB ONE
[2022-04-13] MEDS ORDERED: LR 1,000 ML IV SCH (10:20)
[2022-04-13] MEDS ORDERED: CIPR-249 PO (10:39)
[2022-04-13] MEDS ORDERED: propofoL 200 MG/20 ML VIAL As Ordered ONE (10:42)
[2022-04-13] MEDS ORDERED: fentaNYL 100 MCG/2 ML INJECTION As Ordered ONE (10:42)
[2022-04-13] MEDS ORDERED: SUGAMMADEX SODIUM 500 MG/5 ML VIAL (BRIDION) As Ordered ONE (10:42)
[2022-04-13] MEDS ORDERED: METOCLOPRAMIDE INJ 10MG/2ML VIAL (J2765 PER 1) As Ordered ONE (10:42)
[2022-04-13] MEDS ORDERED: ROCURONIUM BROMIDE 50 MG/5 ML VIAL As Ordered ONE (10:42)
[2022-04-13] MEDS ORDERED: ONDANSETRON 4MG 2ML VIAL As Ordered ONE (10:42)
[2022-04-13] MEDS ORDERED: LIDOCAINE 2% 100MG/5ML SDV (FOR ANES.) As Ordered ONE (10:42)
[2022-04-13] MEDS ORDERED: dexameTHASONE 4 MG/ML 1ML VIAL (J1100 PER 1MG) As Ordered ONE (10:42)
[2022-04-13] MEDS ORDERED: CETACAINE SPRAY 5GM As Ordered ONE (10:55)
[2022-04-13] MEDS ORDERED: LIDOCAINE 1% SDV 30ML VIAL As Ordered ONE (10:55)
[2022-04-13] MEDS ORDERED: THROMBIN SOLN 5,000 UNITS VIAL As Ordered ONE (10:55)
[2022-04-13] MEDS ORDERED: EPINEPHrine 1MG/10ML SYRINGE 1.5IN As Ordered ONE (10:55)
[2022-04-13 12:19] LABS: BLOOD UREA NITROGEN 10 MG/DL (7-18); CALCIUM LEVEL 8.3 MG/DL (8.8-10.2); CARBON DIOXIDE LEVEL 22 MEQ/L (21-32); CHLORIDE LEVEL 86 MEQ/L (98-107); CREATININE FOR GFR 0.74 MG/DL (0.70-1.30); GLOMERULAR FILTRATION RATE > 60.0 (>42); GLUCOSE, FASTING 103 MG/DL (70-100); POTASSIUM SERUM 3.8 MEQ/L (3.5-5.1); SODIUM LEVEL 117 MEQ/L (136-145)
[2022-04-13] MEDS ORDERED: NS 1,000 ML IV SCH (14:45)
[2022-04-13] MEDS ORDERED: ACETAMINOPHEN TAB 650MG DOSE (2X325MG) PO PRN (14:50)
[2022-04-13] MEDS ORDERED: GLUCOSE 4GM CHEW TABLET PO PRN (14:50)
[2022-04-13] MEDS ORDERED: GLUCAGON INJ 1MG VIAL SC PRN (14:50)
[2022-04-13] MEDS ORDERED: DEXTROSE 50% 50 ML SYRINGE IV PRN (14:50)
[2022-04-13 15:45] VITALS: BP 139/76
[2022-04-13 16:05] LABS: BLOOD UREA NITROGEN 10 MG/DL (7-18); CALCIUM LEVEL 8.2 MG/DL (8.8-10.2); CARBON DIOXIDE LEVEL 21 MEQ/L (21-32); CHLORIDE LEVEL 87 MEQ/L (98-107); CREATININE FOR GFR 0.68 MG/DL (0.70-1.30); FREE T4 0.95 NG/DL (0.76-1.46); GLOMERULAR FILTRATION RATE > 60.0 (>42); GLUCOSE, FASTING 121 MG/DL (70-100); MAGNESIUM LEVEL 1.3 MG/DL (1.8-2.4); POTASSIUM SERUM 3.8 MEQ/L (3.5-5.1); SODIUM LEVEL 120 MEQ/L (136-145)
[2022-04-13 16:19] LABS: CORTISOL BASELINE 18.8 UG/DL (4.3-22.4)
[2022-04-13 16:22] LABS: THYROID STIMULATING HORMONE 1.15 uIU/ML (0.358-3.740)
[2022-04-13] MEDS ORDERED: GABAPENTIN 300 MG CAP PO PRN (17:05)
[2022-04-13 17:24] LABS: PHOSPHORUS LEVEL 2.1 MG/DL (2.5-4.9)
[2022-04-13] MEDS: INSULIN LISPRO (NovoLOG) PER UNIT SC SCH ×2 (17:28→20:58)
[2022-04-13] MEDS: MAG SULF 1GM/100ML (MAG RUN) 1 GM in IV 1 EA IV SCH ×3 (17:28→20:53)
[2022-04-13] MEDS ORDERED: HOME MED LIST COMPLETE! XX SCH (17:35)
[2022-04-13] MEDS ORDERED: TOLVAPTAN 15 MG TAB (SAMSCA) PO ONE ×2 (18:00→22:05)
[2022-04-13 18:12] LABS: CREATININE,RANDOM URINE 49.6 MG/DL; POTASSIUM RANDOM URINE 17.5 MEQ/L
[2022-04-13] MEDS: ATORVASTATIN 20 MG TAB PO SCH (18:38)
[2022-04-13] MEDS: FERROUS SULFATE 325MG TAB PO SCH (18:38)
[2022-04-13] MEDS: MULTIVITAMINS/MINERALS THERAP 1 TAB PO SCH (18:39)
[2022-04-13 20:00] VITALS: BP 139/62
[2022-04-13] MEDS: PRIMIDONE 250 MG TAB PO SCH (20:54)
[2022-04-13] MEDS: TAMSULOSIN 0.4 MG CAP PO SCH (20:54)
[2022-04-13] MEDS: LEVEMIR (INSULIN DETEMIR) 1 UNITS/0.01ML SC SCH (20:55)
[2022-04-13] MEDS: SERTRALINE HCL 50 MG TAB PO SCH (20:55)
[2022-04-13] MEDS: PROPRANOLOL 20 MG TAB PO SCH (20:56)
[2022-04-13] MEDS: rOPINIRole 1MG TAB PO SCH (20:56)
[2022-04-13 21:58] LABS: BLOOD UREA NITROGEN 9 MG/DL (7-18); CALCIUM LEVEL 8.5 MG/DL (8.8-10.2); CARBON DIOXIDE LEVEL 25 MEQ/L (21-32); CHLORIDE LEVEL 87 MEQ/L (98-107); CREATININE FOR GFR 0.74 MG/DL (0.70-1.30); GLOMERULAR FILTRATION RATE > 60.0 (>42); GLUCOSE, FASTING 172 MG/DL (70-100); MAGNESIUM LEVEL 2.1 MG/DL (1.8-2.4); PHOSPHORUS LEVEL 2.3 MG/DL (2.5-4.9); POTASSIUM SERUM 3.9 MEQ/L (3.5-5.1); SODIUM LEVEL 118 MEQ/L (136-145)
[2022-04-13] MEDS ORDERED: SODIUM CHLORIDE 1 GM TAB PO ONE (22:05)
[2022-04-14 00:40] VITALS: BP 146/67
[2022-04-14 03:30] LABS: BLOOD UREA NITROGEN 8 MG/DL (7-18); CALCIUM LEVEL 8.2 MG/DL (8.8-10.2); CARBON DIOXIDE LEVEL 25 MEQ/L (21-32); CHLORIDE LEVEL 89 MEQ/L (98-107); CREATININE FOR GFR 0.63 MG/DL (0.70-1.30); GLOMERULAR FILTRATION RATE > 60.0 (>42); GLUCOSE, FASTING 113 MG/DL (70-100); PHOSPHORUS LEVEL 2.3 MG/DL (2.5-4.9); POTASSIUM SERUM 3.6 MEQ/L (3.5-5.1); SODIUM LEVEL 120 MEQ/L (136-145)
[2022-04-14 03:48] LABS: BASO % 0.4 % (0.0-1.0); EOS # 0.2 10^3/uL (0.0-0.5); EOS % 3.4 % (0.0-3.0); HEMATOCRIT 28.7 % (42.0-52.0); LYMPH # 0.9 10^3/uL (1.5-5.0); LYMPH % 17.1 % (24.0-44.0); MEAN CORPUSCULAR HEMOGLOBIN 34.8 pg (27.0-33.0); MEAN CORPUSCULAR VOLUME 90.8 fl (80.0-96.0); MONO # 0.7 10^3/uL (0.0-0.8); MONO % 12.2 % (2.0-8.0); NEUTROPHILS # 3.5 10^3/uL (1.5-8.5); NEUTROPHILS % 64.8 % (36.0-66.0); PLATELET COUNT, AUTOMATED 122 10^3/uL (150-450); RED BLOOD COUNT 3.16 10^6/uL (4.30-6.10); WHITE BLOOD COUNT 5.3 10^3/uL (4.0-10.0)
[2022-04-14 03:49] LABS: MEAN CORPUSCULAR HGB CONC 38.3 g/dl (32.0-36.5)
[2022-04-14 04:49] VITALS: BP 150/68
[2022-04-14 07:22] VITALS: BP 150/73
[2022-04-14] MEDS ORDERED: TOLVAPTAN 15 MG TAB (SAMSCA) PO SCH (09:00)
[2022-04-14] MEDS: INSULIN LISPRO (NovoLOG) PER UNIT SC SCH ×4 (09:08→21:00)
[2022-04-14] MEDS: FERROUS SULFATE 325MG TAB PO SCH (09:09)
[2022-04-14] MEDS: ATORVASTATIN 20 MG TAB PO SCH (09:09)
[2022-04-14] MEDS: ENOXAPARIN 40MG/0.4ML SYRINGE (J1650 PER 10MG) SC SCH (09:09)
[2022-04-14] MEDS: MULTIVITAMINS/MINERALS THERAP 1 TAB PO SCH (09:09)
[2022-04-14] MEDS: TAMSULOSIN 0.4 MG CAP PO SCH ×2 (09:12→22:14)
[2022-04-14] MEDS: PRIMIDONE 250 MG TAB PO SCH ×2 (09:12→22:14)
[2022-04-14] MEDS: PROPRANOLOL 20 MG TAB PO SCH ×2 (09:12→21:00)
[2022-04-14] MEDS: OMEPRAZOLE 20MG CAP PO SCH (09:12)
[2022-04-14] MEDS: SODIUM CHLORIDE 1 GM TAB PO SCH ×3 (09:12→22:12)
[2022-04-14 09:33] LABS: ALBUMIN 3.5 GM/DL (3.2-5.2); BLOOD UREA NITROGEN 7 MG/DL (7-18); CALCIUM LEVEL 8.2 MG/DL (8.8-10.2); CARBON DIOXIDE LEVEL 24 MEQ/L (21-32); CHLORIDE LEVEL 90 MEQ/L (98-107); CREATININE FOR GFR 0.78 MG/DL (0.70-1.30); GLOMERULAR FILTRATION RATE > 60.0 (>42); GLUCOSE, FASTING 137 MG/DL (70-100); MAGNESIUM LEVEL 1.8 MG/DL (1.8-2.4); PHOSPHORUS LEVEL 2.3 MG/DL (2.5-4.9); POTASSIUM SERUM 3.6 MEQ/L (3.5-5.1); SODIUM LEVEL 121 MEQ/L (136-145)
[2022-04-14 09:37] LABS: BLOOD UREA NITROGEN 7 MG/DL (7-18); CALCIUM LEVEL 8.3 MG/DL (8.8-10.2); CARBON DIOXIDE LEVEL 24 MEQ/L (21-32); CHLORIDE LEVEL 89 MEQ/L (98-107); CREATININE FOR GFR 0.76 MG/DL (0.70-1.30); GLOMERULAR FILTRATION RATE > 60.0 (>42); GLUCOSE, FASTING 133 MG/DL (70-100); MAGNESIUM LEVEL 1.8 MG/DL (1.8-2.4); PHOSPHORUS LEVEL 2.2 MG/DL (2.5-4.9); POTASSIUM SERUM 3.6 MEQ/L (3.5-5.1); SODIUM LEVEL 120 MEQ/L (136-145)
[2022-04-14] MEDS: MIRALAX *UNIT DOSE* 17GM PACKET PO PRN (10:10)
[2022-04-14 11:43] VITALS: BP 150/63
[2022-04-14 16:05] VITALS: BP 150/67
[2022-04-14 17:13] LABS: BLOOD UREA NITROGEN 9 MG/DL (7-18); CALCIUM LEVEL 8.4 MG/DL (8.8-10.2); CARBON DIOXIDE LEVEL 21 MEQ/L (21-32); CHLORIDE LEVEL 92 MEQ/L (98-107); CREATININE FOR GFR 0.86 MG/DL (0.70-1.30); GLOMERULAR FILTRATION RATE > 60.0 (>42); GLUCOSE, FASTING 180 MG/DL (70-100); MAGNESIUM LEVEL 1.6 MG/DL (1.8-2.4); PHOSPHORUS LEVEL 2.3 MG/DL (2.5-4.9); SODIUM LEVEL 122 MEQ/L (136-145)
[2022-04-14 19:13] LABS: CHLORIDE URINE 63 MEQ/L
[2022-04-14 19:26] LABS: CHLORIDE 24 HR URINE 171 MEQ/24HR (110-250); TOTAL VOLUME, URINE 2725 ML
[2022-04-14 20:00] VITALS: BP 164/68
[2022-04-14] MEDS: LEVEMIR (INSULIN DETEMIR) 1 UNITS/0.01ML SC SCH (22:12)
[2022-04-14] MEDS: rOPINIRole 1MG TAB PO SCH (22:13)
[2022-04-14] MEDS: SERTRALINE HCL 50 MG TAB PO SCH (22:14)
[2022-04-14 22:25] LABS: BLOOD UREA NITROGEN 9 MG/DL (7-18); CALCIUM LEVEL 8.6 MG/DL (8.8-10.2); CARBON DIOXIDE LEVEL 25 MEQ/L (21-32); CHLORIDE LEVEL 91 MEQ/L (98-107); GLOMERULAR FILTRATION RATE > 60.0 (>42); GLUCOSE, FASTING 166 MG/DL (70-100); MAGNESIUM LEVEL 1.7 MG/DL (1.8-2.4); SODIUM LEVEL 124 MEQ/L (136-145)
[2022-04-15] VITALS: BP 168/70
[2022-04-15 04:00] VITALS: BP 150/65
[2022-04-15 07:43] LABS: BLOOD UREA NITROGEN 8 MG/DL (7-18); CARBON DIOXIDE LEVEL 25 MEQ/L (21-32); CHLORIDE LEVEL 93 MEQ/L (98-107); CREATININE FOR GFR 0.64 MG/DL (0.70-1.30); GLOMERULAR FILTRATION RATE > 60.0 (>42); GLUCOSE, FASTING 114 MG/DL (70-100); MAGNESIUM LEVEL 1.7 MG/DL (1.8-2.4); POTASSIUM SERUM 3.7 MEQ/L (3.5-5.1); SODIUM LEVEL 124 MEQ/L (136-145)
[2022-04-15 07:49] LABS: BASO % 0.5 % (0.0-1.0); EOS # 0.2 10^3/uL (0.0-0.5); EOS % 3.9 % (0.0-3.0); HEMATOCRIT 27.7 % (42.0-52.0); LYMPH # 0.6 10^3/uL (1.5-5.0); LYMPH % 15.1 % (24.0-44.0); MONO # 0.5 10^3/uL (0.0-0.8); MONO % 11.2 % (2.0-8.0); NEUTROPHILS # 2.8 10^3/uL (1.5-8.5); NEUTROPHILS % 67.6 % (36.0-66.0); PLATELET COUNT, AUTOMATED 117 10^3/uL (150-450); RED BLOOD COUNT 3.02 10^6/uL (4.30-6.10); WHITE BLOOD COUNT 4.1 10^3/uL (4.0-10.0)
[2022-04-15 07:50] LABS: MEAN CORPUSCULAR HEMOGLOBIN 33.8 pg (27.0-33.0); MEAN CORPUSCULAR HGB CONC 36.9 g/dl (32.0-36.5)
[2022-04-15 07:51] LABS: HEMOGLOBIN 9.6 g/dl (13.5-17.5); MEAN CORPUSCULAR VOLUME 91.5 fl (80.0-96.0)
[2022-04-15] MEDS: SODIUM CHLORIDE 1 GM TAB PO SCH ×3 (08:10→20:56)
[2022-04-15] MEDS: MULTIVITAMINS/MINERALS THERAP 1 TAB PO SCH (08:10)
[2022-04-15] MEDS: ATORVASTATIN 20 MG TAB PO SCH (08:10)
[2022-04-15] MEDS: FERROUS SULFATE 325MG TAB PO SCH (08:10)
[2022-04-15] MEDS: PRIMIDONE 250 MG TAB PO SCH ×2 (08:10→20:56)
[2022-04-15] MEDS: OMEPRAZOLE 20MG CAP PO SCH (08:11)
[2022-04-15] MEDS: PROPRANOLOL 20 MG TAB PO SCH ×2 (08:11→20:55)
[2022-04-15] MEDS: INSULIN LISPRO (NovoLOG) PER UNIT SC SCH ×4 (08:11→20:14)
[2022-04-15] MEDS: ENOXAPARIN 40MG/0.4ML SYRINGE (J1650 PER 10MG) SC SCH (08:11)
[2022-04-15] MEDS: TAMSULOSIN 0.4 MG CAP PO SCH ×3 (08:11→20:55)
[2022-04-15 08:28] VITALS: BP 134/63
[2022-04-15] MEDS: SENOKOT S TAB PO SCH ×2 (09:22→20:56)
[2022-04-15] MEDS ORDERED: TOLVAPTAN 15 MG TAB (SAMSCA) PO ONE (10:00)
[2022-04-15 12:06] VITALS: BP 151/68
[2022-04-15 16:25] VITALS: BP 136/61
[2022-04-15 20:00] VITALS: BP 165/72
[2022-04-15] MEDS: LEVEMIR (INSULIN DETEMIR) 1 UNITS/0.01ML SC SCH (20:54)
[2022-04-15] MEDS: SERTRALINE HCL 50 MG TAB PO SCH (20:55)
[2022-04-15] MEDS: rOPINIRole 1MG TAB PO SCH (20:56)
[2022-04-16] VITALS: BP 156/67
[2022-04-16 04:00] VITALS: BP 162/80
[2022-04-16 06:22] LABS: BASO % 0.7 % (0.0-1.0); EOS # 0.2 10^3/uL (0.0-0.5); EOS % 4.6 % (0.0-3.0); HEMATOCRIT 29.1 % (42.0-52.0); HEMOGLOBIN 10.7 g/dl (13.5-17.5); LYMPH # 0.8 10^3/uL (1.5-5.0); LYMPH % 16.8 % (24.0-44.0); MEAN CORPUSCULAR HEMOGLOBIN 34.4 pg (27.0-33.0); MEAN CORPUSCULAR VOLUME 93.6 fl (80.0-96.0); MONO # 0.5 10^3/uL (0.0-0.8); MONO % 10.7 % (2.0-8.0); NEUTROPHILS % 65.2 % (36.0-66.0); PLATELET COUNT, AUTOMATED 101 10^3/uL (150-450); RED BLOOD COUNT 3.11 10^6/uL (4.30-6.10); WHITE BLOOD COUNT 4.6 10^3/uL (4.0-10.0)
[2022-04-16 06:31] LABS: MEAN CORPUSCULAR HGB CONC 36.8 g/dl (32.0-36.5)
[2022-04-16 06:50] LABS: BLOOD UREA NITROGEN 10 MG/DL (7-18); CALCIUM LEVEL 8.4 MG/DL (8.8-10.2); CARBON DIOXIDE LEVEL 22 MEQ/L (21-32); CHLORIDE LEVEL 100 MEQ/L (98-107); CREATININE FOR GFR 0.74 MG/DL (0.70-1.30); GLOMERULAR FILTRATION RATE > 60.0 (>42); GLUCOSE, FASTING 116 MG/DL (70-100); MAGNESIUM LEVEL 1.6 MG/DL (1.8-2.4); SODIUM LEVEL 131 MEQ/L (136-145)
[2022-04-16 07:45] VITALS: BP 147/67
[2022-04-16] MEDS: OMEPRAZOLE 20MG CAP PO SCH (08:10)
[2022-04-16] MEDS: SENOKOT S TAB PO SCH ×2 (08:10→20:15)
[2022-04-16] MEDS: MULTIVITAMINS/MINERALS THERAP 1 TAB PO SCH (08:11)
[2022-04-16] MEDS: PROPRANOLOL 20 MG TAB PO SCH ×2 (08:11→20:15)
[2022-04-16] MEDS: FERROUS SULFATE 325MG TAB PO SCH (08:11)
[2022-04-16] MEDS: SODIUM CHLORIDE 1 GM TAB PO SCH ×3 (08:11→20:15)
[2022-04-16] MEDS: ATORVASTATIN 20 MG TAB PO SCH (08:11)
[2022-04-16] MEDS: INSULIN LISPRO (NovoLOG) PER UNIT SC SCH ×4 (08:12→20:15)
[2022-04-16] MEDS: ENOXAPARIN 40MG/0.4ML SYRINGE (J1650 PER 10MG) SC SCH (08:12)
[2022-04-16] MEDS: PRIMIDONE 250 MG TAB PO SCH ×2 (08:12→20:15)
[2022-04-16] MEDS: TAMSULOSIN 0.4 MG CAP PO SCH ×2 (08:12→20:14)
[2022-04-16] MEDS ORDERED: TOLVAPTAN 15 MG TAB (SAMSCA) PO ONE (09:00)
[2022-04-16] MEDS ORDERED: TOLVAPTAN 15 MG TAB (SAMSCA) PO SCH (09:00)
[2022-04-16 15:48] VITALS: BP 165/72
[2022-04-16 19:23] VITALS: BP 175/75
[2022-04-16] MEDS: LEVEMIR (INSULIN DETEMIR) 1 UNITS/0.01ML SC SCH (20:15)
[2022-04-16] MEDS: SERTRALINE HCL 50 MG TAB PO SCH (20:15)
[2022-04-16] MEDS: rOPINIRole 1MG TAB PO SCH (21:49)
[2022-04-16 22:04] VITALS: BP 171/74
[2022-04-17 05:43] VITALS: BP 180/60
[2022-04-17] MEDS ORDERED: hydrALAZINE 20MG/ML 1ML VIAL (J0360 PER 20MG) IV STA (06:03)
[2022-04-17 07:43] LABS: BASO # 0.1 10^3/uL (0.0-0.2); BASO % 0.9 % (0.0-1.0); EOS # 0.3 10^3/uL (0.0-0.5); EOS % 4.7 % (0.0-3.0); HEMATOCRIT 29.7 % (42.0-52.0); HEMOGLOBIN 10.7 g/dl (13.5-17.5); LYMPH # 0.8 10^3/uL (1.5-5.0); MEAN CORPUSCULAR HEMOGLOBIN 34.9 pg (27.0-33.0); MEAN CORPUSCULAR VOLUME 96.7 fl (80.0-96.0); MONO # 0.5 10^3/uL (0.0-0.8); MONO % 8.8 % (2.0-8.0); NEUTROPHILS # 3.7 10^3/uL (1.5-8.5); NEUTROPHILS % 69.5 % (36.0-66.0); PLATELET COUNT, AUTOMATED 131 10^3/uL (150-450); RED BLOOD COUNT 3.07 10^6/uL (4.30-6.10); WHITE BLOOD COUNT 5.3 10^3/uL (4.0-10.0)
[2022-04-17 08:03] LABS: BLOOD UREA NITROGEN 13 MG/DL (7-18); CALCIUM LEVEL 8.5 MG/DL (8.8-10.2); CARBON DIOXIDE LEVEL 23 MEQ/L (21-32); CHLORIDE LEVEL 102 MEQ/L (98-107); CREATININE FOR GFR 0.75 MG/DL (0.70-1.30); GLOMERULAR FILTRATION RATE > 60.0 (>42); GLUCOSE, FASTING 140 MG/DL (70-100); MAGNESIUM LEVEL 1.5 MG/DL (1.8-2.4); POTASSIUM SERUM 3.9 MEQ/L (3.5-5.1); SODIUM LEVEL 132 MEQ/L (136-145)
[2022-04-17] MEDS: ENOXAPARIN 40MG/0.4ML SYRINGE (J1650 PER 10MG) SC SCH (09:00)
[2022-04-17] MEDS: PROPRANOLOL 20 MG TAB PO SCH ×2 (09:00→22:50)
[2022-04-17] MEDS: INSULIN LISPRO (NovoLOG) PER UNIT SC SCH ×4 (09:19→22:43)
[2022-04-17] MEDS: SODIUM CHLORIDE 1 GM TAB PO SCH ×3 (09:19→22:42)
[2022-04-17] MEDS: OMEPRAZOLE 20MG CAP PO SCH (09:20)
[2022-04-17] MEDS: ATORVASTATIN 20 MG TAB PO SCH (09:20)
[2022-04-17] MEDS: MULTIVITAMINS/MINERALS THERAP 1 TAB PO SCH (09:20)
[2022-04-17] MEDS: FERROUS SULFATE 325MG TAB PO SCH (09:20)
[2022-04-17] MEDS: TAMSULOSIN 0.4 MG CAP PO SCH ×2 (09:21→22:42)
[2022-04-17] MEDS: PRIMIDONE 250 MG TAB PO SCH ×2 (09:21→23:06)
[2022-04-17] MEDS: SENOKOT S TAB PO SCH ×2 (09:21→22:42)
[2022-04-17 11:08] VITALS: BP 152/62
[2022-04-17] MEDS: MAGNESIUM OXIDE 400MG TAB (MAG-OX) PO SCH ×2 (11:39→22:42)
[2022-04-17] MEDS: lisinopriL 5 MG TAB PO SCH (11:39)
[2022-04-17 12:00] VITALS: BP 118/56
[2022-04-17] MEDS ORDERED: TOLVAPTAN 15 MG TAB (SAMSCA) PO ONE (13:00)
[2022-04-17] MEDS ORDERED: SENNA 8.6 MG TAB (SENOKOT) PO SCH (21:00)
[2022-04-17 22:26] VITALS: BP 178/62
[2022-04-17] MEDS: rOPINIRole 1MG TAB PO SCH (22:41)
[2022-04-17] MEDS: SERTRALINE HCL 50 MG TAB PO SCH (22:43)
[2022-04-17] MEDS: LEVEMIR (INSULIN DETEMIR) 1 UNITS/0.01ML SC SCH (22:44)
[2022-04-18] MEDS ORDERED: **hydrALAZINE** 50 MG TAB PO ONE
[2022-04-18 02:04] VITALS: BP 138/52
[2022-04-18 05:30] VITALS: BP 136/50
[2022-04-18 06:48] LABS: BASO % 0.7 % (0.0-1.0); EOS # 0.2 10^3/uL (0.0-0.5); HEMATOCRIT 29.5 % (42.0-52.0); HEMOGLOBIN 10.5 g/dl (13.5-17.5); LYMPH # 0.8 10^3/uL (1.5-5.0); LYMPH % 17.9 % (24.0-44.0); MEAN CORPUSCULAR HEMOGLOBIN 34.5 pg (27.0-33.0); MEAN CORPUSCULAR HGB CONC 35.6 g/dl (32.0-36.5); MONO # 0.5 10^3/uL (0.0-0.8); MONO % 10.5 % (2.0-8.0); NEUTROPHILS % 64.6 % (36.0-66.0); PLATELET COUNT, AUTOMATED 110 10^3/uL (150-450); RED BLOOD COUNT 3.04 10^6/uL (4.30-6.10); WHITE BLOOD COUNT 4.6 10^3/uL (4.0-10.0)
[2022-04-18 07:32] LABS: BLOOD UREA NITROGEN 13 MG/DL (7-18); CREATININE FOR GFR 0.79 MG/DL (0.70-1.30); GLOMERULAR FILTRATION RATE > 60.0 (>42); GLUCOSE, FASTING 144 MG/DL (70-100)
[2022-04-18 07:33] LABS: ALBUMIN 3.3 GM/DL (3.2-5.2); ALT/SGPT 33 IU/L (0-32); BILIRUBIN,TOTAL 0.4 MG/DL (0.2-1.0); CALCIUM LEVEL 8.8 MG/DL (8.8-10.2); CARBON DIOXIDE LEVEL 23 mmol/L (20-29); CHLORIDE LEVEL 103 MEQ/L (98-107); POTASSIUM SERUM 4.1 MEQ/L (3.5-5.1); SODIUM LEVEL 135 MEQ/L (136-145); TOTAL PROTEIN 6.5 GM/DL (6.4-8.2)
[2022-04-18 07:34] LABS: MAGNESIUM LEVEL 1.6 MG/DL (1.8-2.4)
[2022-04-18] MEDS ORDERED: MAG SULF 1GM/100ML (MAG RUN) 1 GM in IV 1 EA IV ONE (08:05)
[2022-04-18] MEDS: FERROUS SULFATE 325MG TAB PO SCH (09:49)
[2022-04-18] MEDS: PRIMIDONE 250 MG TAB PO SCH ×2 (09:49→21:23)
[2022-04-18] MEDS: INSULIN LISPRO (NovoLOG) PER UNIT SC SCH ×4 (09:49→21:00)
[2022-04-18] MEDS: SODIUM CHLORIDE 1 GM TAB PO SCH ×3 (09:50→21:22)
[2022-04-18] MEDS: TAMSULOSIN 0.4 MG CAP PO SCH ×2 (09:50→21:22)
[2022-04-18] MEDS: PROPRANOLOL 20 MG TAB PO SCH ×2 (09:50→21:23)
[2022-04-18] MEDS: ATORVASTATIN 20 MG TAB PO SCH (09:50)
[2022-04-18] MEDS: lisinopriL 5 MG TAB PO SCH (09:50)
[2022-04-18] MEDS: OMEPRAZOLE 20MG CAP PO SCH (09:50)
[2022-04-18] MEDS: MULTIVITAMINS/MINERALS THERAP 1 TAB PO SCH (09:50)
[2022-04-18] MEDS: SENOKOT S TAB PO SCH ×2 (09:51→21:22)
[2022-04-18] MEDS: MAGNESIUM OXIDE 400MG TAB (MAG-OX) PO SCH ×2 (09:51→21:22)
[2022-04-18] MEDS: ENOXAPARIN 40MG/0.4ML SYRINGE (J1650 PER 10MG) SC SCH (11:30)
[2022-04-18 12:00] VITALS: BP 138/64
[2022-04-18 20:15] VITALS: BP 160/74
[2022-04-18 21:18] VITALS: BP 172/62
[2022-04-18] MEDS: rOPINIRole 1MG TAB PO SCH (21:22)
[2022-04-18] MEDS: SERTRALINE HCL 50 MG TAB PO SCH (21:22)
[2022-04-18] MEDS: LEVEMIR (INSULIN DETEMIR) 1 UNITS/0.01ML SC SCH (21:24)
[2022-04-19] VITALS (9 sets, daily range): BP systolic 115–175; BP diastolic 51–93
[2022-04-19 06:54] LABS: BASO % 0.6 % (0.0-1.0); EOS # 0.3 10^3/uL (0.0-0.5); HEMATOCRIT 30.1 % (42.0-52.0); HEMOGLOBIN 10.6 g/dl (13.5-17.5); LYMPH # 0.9 10^3/uL (1.5-5.0); LYMPH % 17.5 % (24.0-44.0); MEAN CORPUSCULAR HEMOGLOBIN 34.6 pg (27.0-33.0); MEAN CORPUSCULAR HGB CONC 35.2 g/dl (32.0-36.5); MEAN CORPUSCULAR VOLUME 98.4 fl (80.0-96.0); MONO # 0.5 10^3/uL (0.0-0.8); MONO % 9.9 % (2.0-8.0); NEUTROPHILS # 3.3 10^3/uL (1.5-8.5); NEUTROPHILS % 65.6 % (36.0-66.0); PLATELET COUNT, AUTOMATED 111 10^3/uL (150-450); RED BLOOD COUNT 3.06 10^6/uL (4.30-6.10)
[2022-04-19 07:08] LABS: ALBUMIN 3.4 GM/DL (3.2-5.2); ALT/SGPT 36 U/L (12-78); BILIRUBIN,TOTAL 0.4 MG/DL (0.2-1.0); BLOOD UREA NITROGEN 15 MG/DL (7-18); CALCIUM LEVEL 8.8 MG/DL (8.8-10.2); CARBON DIOXIDE LEVEL 24 MEQ/L (21-32); CHLORIDE LEVEL 102 MEQ/L (98-107); CREATININE FOR GFR 0.77 MG/DL (0.70-1.30); GLOMERULAR FILTRATION RATE > 60.0 (>42); GLUCOSE, FASTING 149 MG/DL (70-100); MAGNESIUM LEVEL 1.7 MG/DL (1.8-2.4); POTASSIUM SERUM 4.1 MEQ/L (3.5-5.1); SODIUM LEVEL 133 MEQ/L (136-145); TOTAL PROTEIN 6.4 GM/DL (6.4-8.2)
[2022-04-19] MEDS ORDERED: EPINEPHrine 1MG/10ML SYRINGE 1.5IN As Ordered ONE (08:29)
[2022-04-19] MEDS ORDERED: THROMBIN SOLN 5,000 UNITS VIAL As Ordered ONE (08:29)
[2022-04-19] MEDS ORDERED: CETACAINE SPRAY 5GM As Ordered ONE (08:29)
[2022-04-19] MEDS ORDERED: LIDOCAINE 4% TOPICAL SOLN 50 ML BTL As Ordered ONE (09:10)
[2022-04-19] MEDS: INSULIN LISPRO (NovoLOG) PER UNIT SC SCH ×4 (09:44→21:09)
[2022-04-19] MEDS ORDERED: ROCURONIUM BROMIDE 50 MG/5 ML VIAL As Ordered ONE (09:51)
[2022-04-19] MEDS ORDERED: fentaNYL 100 MCG/2 ML INJECTION As Ordered ONE (09:51)
[2022-04-19] MEDS ORDERED: MIDAZOLAM INJ 2MG/2ML VIAL (J2250 PER 1MG) As Ordered ONE (09:51)
[2022-04-19] MEDS ORDERED: dexameTHASONE 4 MG/ML 1ML VIAL (J1100 PER 1MG) As Ordered ONE (09:51)
[2022-04-19] MEDS ORDERED: LIDOCAINE 2% INJ 100 MG/5 ML SYRINGE As Ordered ONE (09:52)
[2022-04-19] MEDS ORDERED: propofoL 200 MG/20 ML VIAL As Ordered ONE (09:52)
[2022-04-19] MEDS ORDERED: SUGAMMADEX SODIUM 500 MG/5 ML VIAL (BRIDION) As Ordered ONE (09:52)
[2022-04-19] MEDS ORDERED: GLYCOPYRROLATE INJ 0.2 MG/ML 2 ML VIAL As Ordered ONE (09:54)
[2022-04-19] MEDS ORDERED: LIDOCAINE 4% INJ 5ML AMP INH ONE (10:00)
[2022-04-19] MEDS ORDERED: ALBUTEROL SULFATE 2.5 MG/0.5 ML INH NEB SOLN NEB ONE (10:00)
[2022-04-19] MEDS ORDERED: LR 1,000 ML IV SCH (11:00)
[2022-04-19] MEDS ORDERED: ALBUTEROL SULFATE 2.5 MG/0.5 ML INH NEB SOLN INH ONE (11:00)
[2022-04-19] MEDS ORDERED: ONDANSETRON 4MG 2ML VIAL IV PRN (11:00)
[2022-04-19] MEDS ORDERED: fentaNYL 100 MCG/2 ML INJECTION IV PRN (11:00)
[2022-04-19] MEDS ORDERED: METOCLOPRAMIDE INJ 10MG/2ML VIAL (J2765 PER 1) IV PRN (11:00)
[2022-04-19] MEDS ORDERED: oxyCODONE 5MG TAB PO PRN (11:00)
[2022-04-19] MEDS: hydrALAZINE 20MG/ML 1ML VIAL (J0360 PER 20MG) IV PRN ×3 (11:20→11:31)
[2022-04-19] MEDS: SODIUM CHLORIDE 1 GM TAB PO SCH ×3 (11:54→21:07)
[2022-04-19] MEDS: MAGNESIUM OXIDE 400MG TAB (MAG-OX) PO SCH ×3 (11:55→21:08)
[2022-04-19] MEDS: MULTIVITAMINS/MINERALS THERAP 1 TAB PO SCH (11:56)
[2022-04-19] MEDS: TAMSULOSIN 0.4 MG CAP PO SCH ×2 (11:56→21:08)
[2022-04-19] MEDS: SENOKOT S TAB PO SCH ×2 (11:56→21:08)
[2022-04-19] MEDS: ATORVASTATIN 20 MG TAB PO SCH (11:57)
[2022-04-19] MEDS: PRIMIDONE 250 MG TAB PO SCH ×2 (11:57→21:08)
[2022-04-19] MEDS: OMEPRAZOLE 20MG CAP PO SCH (11:57)
[2022-04-19] MEDS: lisinopriL 5 MG TAB PO SCH (11:58)
[2022-04-19] MEDS: PROPRANOLOL 20 MG TAB PO SCH ×2 (11:58→21:08)
[2022-04-19] MEDS: FERROUS SULFATE 325MG TAB PO SCH (11:58)
[2022-04-19] MEDS: ENOXAPARIN 40MG/0.4ML SYRINGE (J1650 PER 10MG) SC SCH (11:59)
[2022-04-19] MEDS ORDERED: LISI5TAB11 PO (14:04)
[2022-04-19] MEDS ORDERED: SODI1TAB6 PO (14:04)
[2022-04-19] MEDS ORDERED: SENN-52 PO (14:04)
[2022-04-19] MEDS ORDERED: MAGN400T2 PO (14:04)
[2022-04-19] MEDS ORDERED: PROP20TA PO (14:04)
[2022-04-19] MEDS ORDERED: TOLV15TAB PO (14:04)
[2022-04-19] MEDS: SERTRALINE HCL 50 MG TAB PO SCH (21:08)
[2022-04-19] MEDS: rOPINIRole 1MG TAB PO SCH (21:08)
[2022-04-19] MEDS: LEVEMIR (INSULIN DETEMIR) 1 UNITS/0.01ML SC SCH (21:09)
[2022-04-20 00:15] VITALS: BP 130/58
[2022-04-20 04:15] VITALS: BP 149/67
[2022-04-20 06:58] LABS: BASO % 0.4 % (0.0-1.0); EOS # 0.2 10^3/uL (0.0-0.5); EOS % 3.9 % (0.0-3.0); HEMATOCRIT 28.9 % (42.0-52.0); HEMOGLOBIN 10.4 g/dl (13.5-17.5); LYMPH # 0.8 10^3/uL (1.5-5.0); LYMPH % 14.8 % (24.0-44.0); MEAN CORPUSCULAR HEMOGLOBIN 35.6 pg (27.0-33.0); MONO # 0.5 10^3/uL (0.0-0.8); MONO % 8.4 % (2.0-8.0); NEUTROPHILS % 71.6 % (36.0-66.0); PLATELET COUNT, AUTOMATED 107 10^3/uL (150-450); RED BLOOD COUNT 2.92 10^6/uL (4.30-6.10); WHITE BLOOD COUNT 5.6 10^3/uL (4.0-10.0)
[2022-04-20 07:30] LABS: ALBUMIN 3.2 GM/DL (3.2-5.2); ALT/SGPT 41 U/L (12-78); BILIRUBIN,TOTAL 0.4 MG/DL (0.2-1.0); BLOOD UREA NITROGEN 16 MG/DL (7-18); CALCIUM LEVEL 8.4 MG/DL (8.8-10.2); CARBON DIOXIDE LEVEL 27 MEQ/L (21-32); CHLORIDE LEVEL 101 MEQ/L (98-107); CREATININE FOR GFR 0.82 MG/DL (0.70-1.30); GLOMERULAR FILTRATION RATE > 60.0 (>42); GLUCOSE, FASTING 136 MG/DL (70-100); POTASSIUM SERUM 4.1 MEQ/L (3.5-5.1); SODIUM LEVEL 134 MEQ/L (136-145); TOTAL PROTEIN 5.9 GM/DL (6.4-8.2)
[2022-04-20] MEDS ORDERED: MAGN400T2 PO (07:50)
[2022-04-20] MEDS ORDERED: SENN-52 PO (07:50)
[2022-04-20] MEDS ORDERED: PROP20TA PO (07:50)
[2022-04-20] MEDS ORDERED: LISI5TAB11 PO (07:50)
[2022-04-20] MEDS ORDERED: TOLV15TAB PO (07:51)
[2022-04-20 08:00] VITALS: BP 134/60
[2022-04-20] MEDS: SODIUM CHLORIDE 1 GM TAB PO SCH ×3 (08:44→20:37)
[2022-04-20] MEDS: MAGNESIUM OXIDE 400MG TAB (MAG-OX) PO SCH ×3 (08:44→20:38)
[2022-04-20] MEDS: MULTIVITAMINS/MINERALS THERAP 1 TAB PO SCH (08:45)
[2022-04-20] MEDS: SENOKOT S TAB PO SCH ×2 (08:46→20:40)
[2022-04-20] MEDS: FERROUS SULFATE 325MG TAB PO SCH (08:46)
[2022-04-20] MEDS: ATORVASTATIN 20 MG TAB PO SCH (08:46)
[2022-04-20] MEDS: OMEPRAZOLE 20MG CAP PO SCH (08:46)
[2022-04-20] MEDS: PRIMIDONE 250 MG TAB PO SCH ×2 (08:46→20:37)
[2022-04-20] MEDS: TAMSULOSIN 0.4 MG CAP PO SCH ×2 (08:46→20:37)
[2022-04-20] MEDS: PROPRANOLOL 20 MG TAB PO SCH ×2 (08:48→20:37)
[2022-04-20] MEDS: lisinopriL 5 MG TAB PO SCH (08:48)
[2022-04-20] MEDS: ENOXAPARIN 40MG/0.4ML SYRINGE (J1650 PER 10MG) SC SCH (08:56)
[2022-04-20] MEDS: INSULIN LISPRO (NovoLOG) PER UNIT SC SCH ×4 (08:56→20:29)
[2022-04-20 12:00] VITALS: BP 151/67
[2022-04-20] MEDS: MIRALAX *UNIT DOSE* 17GM PACKET PO PRN (17:22)
[2022-04-20 20:00] VITALS: BP 180/79
[2022-04-20] MEDS: rOPINIRole 1MG TAB PO SCH (20:37)
[2022-04-20] MEDS: SERTRALINE HCL 50 MG TAB PO SCH (20:37)
[2022-04-20] MEDS: LEVEMIR (INSULIN DETEMIR) 1 UNITS/0.01ML SC SCH (20:38)
[2022-04-20 20:50] VITALS: BP 150/58
[2022-04-21 04:00] VITALS: BP 122/59
[2022-04-21 07:37] LABS: HEMATOCRIT 29.5 % (42.0-52.0); HEMOGLOBIN 10.3 g/dl (13.5-17.5); MEAN CORPUSCULAR HEMOGLOBIN 34.4 pg (27.0-33.0); MEAN CORPUSCULAR HGB CONC 34.9 g/dl (32.0-36.5); MEAN CORPUSCULAR VOLUME 98.7 fl (80.0-96.0); RED BLOOD COUNT 2.99 10^6/uL (4.30-6.10); WHITE BLOOD COUNT 4.8 10^3/uL (4.0-10.0)
[2022-04-21] MEDS: INSULIN LISPRO (NovoLOG) PER UNIT SC SCH ×4 (07:37→20:51)
[2022-04-21 07:39] LABS: PLATELET COUNT, AUTOMATED 97 10^3/uL (150-450)
[2022-04-21 08:12] LABS: ALBUMIN 3.3 GM/DL (3.2-5.2); ALT/SGPT 38 U/L (12-78); BILIRUBIN,TOTAL 0.4 MG/DL (0.2-1.0); BLOOD UREA NITROGEN 15 MG/DL (7-18); CALCIUM LEVEL 8.8 MG/DL (8.8-10.2); CARBON DIOXIDE LEVEL 26 MEQ/L (21-32); CHLORIDE LEVEL 100 MEQ/L (98-107); CREATININE FOR GFR 0.69 MG/DL (0.70-1.30); GLOMERULAR FILTRATION RATE > 60.0 (>42); GLUCOSE, FASTING 143 MG/DL (70-100); POTASSIUM SERUM 4.2 MEQ/L (3.5-5.1); SODIUM LEVEL 134 MEQ/L (136-145)
[2022-04-21] MEDS: SENOKOT S TAB PO SCH ×2 (09:11→20:50)
[2022-04-21] MEDS: OMEPRAZOLE 20MG CAP PO SCH (09:11)
[2022-04-21] MEDS: SODIUM CHLORIDE 1 GM TAB PO SCH ×3 (09:11→20:56)
[2022-04-21] MEDS: FERROUS SULFATE 325MG TAB PO SCH (09:12)
[2022-04-21] MEDS: ATORVASTATIN 20 MG TAB PO SCH (09:12)
[2022-04-21] MEDS: PRIMIDONE 250 MG TAB PO SCH ×2 (09:12→20:45)
[2022-04-21] MEDS: MAGNESIUM OXIDE 400MG TAB (MAG-OX) PO SCH ×3 (09:12→20:45)
[2022-04-21] MEDS: MULTIVITAMINS/MINERALS THERAP 1 TAB PO SCH (09:12)
[2022-04-21] MEDS: TAMSULOSIN 0.4 MG CAP PO SCH ×2 (09:12→20:44)
[2022-04-21] MEDS: lisinopriL 5 MG TAB PO SCH (09:13)
[2022-04-21] MEDS: PROPRANOLOL 20 MG TAB PO SCH ×2 (09:18→20:50)
[2022-04-21] MEDS: ENOXAPARIN 40MG/0.4ML SYRINGE (J1650 PER 10MG) SC SCH (10:07)
[2022-04-21 12:00] VITALS: BP 141/70
[2022-04-21] MEDS: TOLVAPTAN 15 MG TAB (SAMSCA) PO SCH (14:49)
[2022-04-21 20:00] VITALS: BP 154/67
[2022-04-21] MEDS ORDERED: SIMETHICONE 80MG CHEW TAB PO PRN (20:20)
[2022-04-21] MEDS: rOPINIRole 1MG TAB PO SCH (20:44)
[2022-04-21] MEDS: SERTRALINE HCL 50 MG TAB PO SCH (20:45)
[2022-04-21] MEDS: LEVEMIR (INSULIN DETEMIR) 1 UNITS/0.01ML SC SCH (20:51)
[2022-04-22 06:12] VITALS: BP 152/59
[2022-04-22 06:35] LABS: HEMATOCRIT 28.3 % (42.0-52.0); HEMOGLOBIN 10.3 g/dl (13.5-17.5); MEAN CORPUSCULAR HEMOGLOBIN 35.2 pg (27.0-33.0); MEAN CORPUSCULAR HGB CONC 36.4 g/dl (32.0-36.5); MEAN CORPUSCULAR VOLUME 96.6 fl (80.0-96.0); RED BLOOD COUNT 2.93 10^6/uL (4.30-6.10); WHITE BLOOD COUNT 5.2 10^3/uL (4.0-10.0)
[2022-04-22 06:36] LABS: PLATELET COUNT, AUTOMATED 99 10^3/uL (150-450)
[2022-04-22 06:59] LABS: ALBUMIN 3.4 GM/DL (3.2-5.2); ALT/SGPT 42 U/L (12-78); BILIRUBIN,TOTAL 0.4 MG/DL (0.2-1.0); BLOOD UREA NITROGEN 13 MG/DL (7-18); CALCIUM LEVEL 8.4 MG/DL (8.8-10.2); CARBON DIOXIDE LEVEL 25 MEQ/L (21-32); CHLORIDE LEVEL 102 MEQ/L (98-107); CREATININE FOR GFR 0.67 MG/DL (0.70-1.30); GLOMERULAR FILTRATION RATE > 60.0 (>42); GLUCOSE, FASTING 148 MG/DL (70-100); POTASSIUM SERUM 3.9 MEQ/L (3.5-5.1); SODIUM LEVEL 134 MEQ/L (136-145); TOTAL PROTEIN 6.2 GM/DL (6.4-8.2)
[2022-04-22] MEDS: ENOXAPARIN 40MG/0.4ML SYRINGE (J1650 PER 10MG) SC SCH (09:00)
[2022-04-22] MEDS: FERROUS SULFATE 325MG TAB PO SCH (09:51)
[2022-04-22] MEDS: INSULIN LISPRO (NovoLOG) PER UNIT SC SCH ×4 (09:51→21:35)
[2022-04-22] MEDS: SODIUM CHLORIDE 1 GM TAB PO SCH ×3 (09:51→21:24)
[2022-04-22] MEDS: SENOKOT S TAB PO SCH ×2 (09:51→21:25)
[2022-04-22] MEDS: OMEPRAZOLE 20MG CAP PO SCH (09:51)
[2022-04-22] MEDS: TAMSULOSIN 0.4 MG CAP PO SCH ×2 (09:51→21:25)
[2022-04-22] MEDS: lisinopriL 5 MG TAB PO SCH (09:52)
[2022-04-22] MEDS: PROPRANOLOL 20 MG TAB PO SCH ×2 (09:52→21:24)
[2022-04-22] MEDS: ATORVASTATIN 20 MG TAB PO SCH (09:53)
[2022-04-22] MEDS: MAGNESIUM OXIDE 400MG TAB (MAG-OX) PO SCH ×3 (09:53→21:25)
[2022-04-22] MEDS: PRIMIDONE 250 MG TAB PO SCH ×2 (09:53→21:24)
[2022-04-22] MEDS: MULTIVITAMINS/MINERALS THERAP 1 TAB PO SCH (09:53)
[2022-04-22] MEDS: TOLVAPTAN 15 MG TAB (SAMSCA) PO SCH (09:53)
[2022-04-22] MEDS: MIRALAX *UNIT DOSE* 17GM PACKET PO PRN (12:09)
[2022-04-22] MEDS: SERTRALINE HCL 50 MG TAB PO SCH (21:24)
[2022-04-22] MEDS: rOPINIRole 1MG TAB PO SCH (21:25)
[2022-04-22] MEDS: LEVEMIR (INSULIN DETEMIR) 1 UNITS/0.01ML SC SCH (21:26)
[2022-04-23 06:00] VITALS: BP 145/60
[2022-04-23 06:33] LABS: HEMATOCRIT 28.7 % (42.0-52.0); HEMOGLOBIN 10.1 g/dl (13.5-17.5); MEAN CORPUSCULAR HGB CONC 35.2 g/dl (32.0-36.5); MEAN CORPUSCULAR VOLUME 96.6 fl (80.0-96.0); RED BLOOD COUNT 2.97 10^6/uL (4.30-6.10); WHITE BLOOD COUNT 5.8 10^3/uL (4.0-10.0)
[2022-04-23 06:37] LABS: PLATELET COUNT, AUTOMATED 98 10^3/uL (150-450)
[2022-04-23 06:53] LABS: ALBUMIN 3.2 GM/DL (3.2-5.2); ALT/SGPT 44 U/L (12-78); BILIRUBIN,TOTAL 0.3 MG/DL (0.2-1.0); BLOOD UREA NITROGEN 14 MG/DL (7-18); CALCIUM LEVEL 8.6 MG/DL (8.8-10.2); CARBON DIOXIDE LEVEL 29 MEQ/L (21-32); CHLORIDE LEVEL 102 MEQ/L (98-107); CREATININE FOR GFR 0.72 MG/DL (0.70-1.30); GLOMERULAR FILTRATION RATE > 60.0 (>42); GLUCOSE, FASTING 162 MG/DL (70-100); POTASSIUM SERUM 4.2 MEQ/L (3.5-5.1); SODIUM LEVEL 135 MEQ/L (136-145); TOTAL PROTEIN 6.1 GM/DL (6.4-8.2)
[2022-04-23] MEDS: ENOXAPARIN 40MG/0.4ML SYRINGE (J1650 PER 10MG) SC SCH (09:00)
[2022-04-23] MEDS: SODIUM CHLORIDE 1 GM TAB PO SCH ×3 (10:16→20:08)
[2022-04-23] MEDS: TAMSULOSIN 0.4 MG CAP PO SCH ×2 (10:16→20:07)
[2022-04-23] MEDS: PROPRANOLOL 20 MG TAB PO SCH ×2 (10:17→20:10)
[2022-04-23] MEDS: FERROUS SULFATE 325MG TAB PO SCH (10:18)
[2022-04-23] MEDS: TOLVAPTAN 15 MG TAB (SAMSCA) PO SCH (10:18)
[2022-04-23] MEDS: PRIMIDONE 250 MG TAB PO SCH ×2 (10:18→21:00)
[2022-04-23] MEDS: lisinopriL 5 MG TAB PO SCH (10:18)
[2022-04-23] MEDS: MULTIVITAMINS/MINERALS THERAP 1 TAB PO SCH (10:19)
[2022-04-23] MEDS: OMEPRAZOLE 20MG CAP PO SCH (10:19)
[2022-04-23] MEDS: SENOKOT S TAB PO SCH ×2 (10:19→20:08)
[2022-04-23] MEDS: ATORVASTATIN 20 MG TAB PO SCH (10:19)
[2022-04-23] MEDS: MAGNESIUM OXIDE 400MG TAB (MAG-OX) PO SCH ×3 (10:19→20:08)
[2022-04-23] MEDS: INSULIN LISPRO (NovoLOG) PER UNIT SC SCH ×4 (10:20→20:24)
[2022-04-23] MEDS: MIRALAX *UNIT DOSE* 17GM PACKET PO PRN (10:32)
[2022-04-23] MEDS: SERTRALINE HCL 50 MG TAB PO SCH (20:07)
[2022-04-23] MEDS: LEVEMIR (INSULIN DETEMIR) 1 UNITS/0.01ML SC SCH (20:11)
[2022-04-23] MEDS: rOPINIRole 1MG TAB PO SCH (22:13)
[2022-04-24 05:21] VITALS: BP 158/62
[2022-04-24 06:21] LABS: HEMATOCRIT 30.1 % (42.0-52.0); HEMOGLOBIN 10.7 g/dl (13.5-17.5); MEAN CORPUSCULAR HEMOGLOBIN 35.2 pg (27.0-33.0); MEAN CORPUSCULAR HGB CONC 35.5 g/dl (32.0-36.5); PLATELET COUNT, AUTOMATED 115 10^3/uL (150-450); RED BLOOD COUNT 3.04 10^6/uL (4.30-6.10); WHITE BLOOD COUNT 5.9 10^3/uL (4.0-10.0)
[2022-04-24 06:39] LABS: ALBUMIN 3.4 GM/DL (3.2-5.2); ALT/SGPT 43 U/L (12-78); BILIRUBIN,TOTAL 0.4 MG/DL (0.2-1.0); BLOOD UREA NITROGEN 13 MG/DL (7-18); CALCIUM LEVEL 8.8 MG/DL (8.8-10.2); CARBON DIOXIDE LEVEL 29 MEQ/L (21-32); CHLORIDE LEVEL 103 MEQ/L (98-107); CREATININE FOR GFR 0.74 MG/DL (0.70-1.30); GLOMERULAR FILTRATION RATE > 60.0 (>42); GLUCOSE, FASTING 165 MG/DL (70-100); POTASSIUM SERUM 4.6 MEQ/L (3.5-5.1); SODIUM LEVEL 137 MEQ/L (136-145); TOTAL PROTEIN 6.3 GM/DL (6.4-8.2)
[2022-04-24] MEDS: OMEPRAZOLE 20MG CAP PO SCH (08:42)
[2022-04-24] MEDS: SENOKOT S TAB PO SCH ×2 (08:43→22:18)
[2022-04-24] MEDS: TOLVAPTAN 15 MG TAB (SAMSCA) PO SCH (08:43)
[2022-04-24] MEDS: SODIUM CHLORIDE 1 GM TAB PO SCH ×3 (08:43→22:16)
[2022-04-24] MEDS: PRIMIDONE 250 MG TAB PO SCH ×2 (08:43→22:18)
[2022-04-24] MEDS: FERROUS SULFATE 325MG TAB PO SCH (08:43)
[2022-04-24] MEDS: TAMSULOSIN 0.4 MG CAP PO SCH ×2 (08:44→22:17)
[2022-04-24] MEDS: MAGNESIUM OXIDE 400MG TAB (MAG-OX) PO SCH ×3 (08:44→22:17)
[2022-04-24] MEDS: ATORVASTATIN 20 MG TAB PO SCH (08:45)
[2022-04-24] MEDS: PROPRANOLOL 20 MG TAB PO SCH ×2 (08:45→22:18)
[2022-04-24] MEDS: lisinopriL 5 MG TAB PO SCH (08:45)
[2022-04-24] MEDS: MULTIVITAMINS/MINERALS THERAP 1 TAB PO SCH (08:46)
[2022-04-24] MEDS: LEVEMIR (INSULIN DETEMIR) 1 UNITS/0.01ML SC SCH ×2 (08:47→22:19)
[2022-04-24] MEDS: INSULIN LISPRO (NovoLOG) PER UNIT SC SCH ×4 (08:48→22:19)
[2022-04-24] MEDS: ENOXAPARIN 40MG/0.4ML SYRINGE (J1650 PER 10MG) SC SCH (09:00)
[2022-04-24] MEDS: SERTRALINE HCL 50 MG TAB PO SCH (22:17)
[2022-04-24] MEDS: rOPINIRole 1MG TAB PO SCH (22:17)
[2022-04-25 06:00] VITALS: BP 153/69
[2022-04-25 06:28] LABS: HEMATOCRIT 29.2 % (42.0-52.0); HEMOGLOBIN 10.4 g/dl (13.5-17.5); MEAN CORPUSCULAR HEMOGLOBIN 34.7 pg (27.0-33.0); MEAN CORPUSCULAR HGB CONC 35.6 g/dl (32.0-36.5); MEAN CORPUSCULAR VOLUME 97.3 fl (80.0-96.0); PLATELET COUNT, AUTOMATED 119 10^3/uL (150-450); WHITE BLOOD COUNT 5.5 10^3/uL (4.0-10.0)
[2022-04-25 06:50] LABS: ALBUMIN 3.2 GM/DL (3.2-5.2); ALT/SGPT 46 U/L (12-78); BILIRUBIN,TOTAL 0.4 MG/DL (0.2-1.0); BLOOD UREA NITROGEN 14 MG/DL (7-18); CALCIUM LEVEL 8.6 MG/DL (8.8-10.2); CARBON DIOXIDE LEVEL 27 MEQ/L (21-32); CHLORIDE LEVEL 100 MEQ/L (98-107); CREATININE FOR GFR 0.76 MG/DL (0.70-1.30); GLOMERULAR FILTRATION RATE > 60.0 (>42); GLUCOSE, FASTING 193 MG/DL (70-100); SODIUM LEVEL 132 MEQ/L (136-145); TOTAL PROTEIN 6.5 GM/DL (6.4-8.2)
[2022-04-25] MEDS: LEVEMIR (INSULIN DETEMIR) 1 UNITS/0.01ML SC SCH (08:33)
[2022-04-25] MEDS: ENOXAPARIN 40MG/0.4ML SYRINGE (J1650 PER 10MG) SC SCH (08:33)
[2022-04-25] MEDS: OMEPRAZOLE 20MG CAP PO SCH (08:34)
[2022-04-25] MEDS: PRIMIDONE 250 MG TAB PO SCH (08:34)
[2022-04-25] MEDS: INSULIN LISPRO (NovoLOG) PER UNIT SC SCH ×2 (08:34→13:40)
[2022-04-25] MEDS: ATORVASTATIN 20 MG TAB PO SCH (08:34)
[2022-04-25] MEDS: SENOKOT S TAB PO SCH (08:34)
[2022-04-25] MEDS: FERROUS SULFATE 325MG TAB PO SCH (08:34)
[2022-04-25] MEDS: TAMSULOSIN 0.4 MG CAP PO SCH (08:34)
[2022-04-25] MEDS: MULTIVITAMINS/MINERALS THERAP 1 TAB PO SCH (08:34)
[2022-04-25 08:35] VITALS: BP 140/51
[2022-04-25] MEDS: MAGNESIUM OXIDE 400MG TAB (MAG-OX) PO SCH (08:35)
[2022-04-25] MEDS: SODIUM CHLORIDE 1 GM TAB PO SCH (08:35)
[2022-04-25] MEDS: PROPRANOLOL 20 MG TAB PO SCH (08:35)
[2022-04-25] MEDS: TOLVAPTAN 15 MG TAB (SAMSCA) PO SCH (08:35)
[2022-04-25] MEDS: lisinopriL 5 MG TAB PO SCH (08:36)
== END 2022-04-25 15:48 | disposition home health service (06) | DRG 988 ==
LOC: M SDC 09:38 → M PCU 14:54 → M 4MAIN 04-16 21:59 → M MSPAV 04-21 19:20
PROVIDERS: ADMIT Internal Medicine; ATTEND Internal Medicine
PROC: 07D78ZX Extraction of Thorax Lymphatic, Via Natural or Artificial Opening Endoscopic, Diagnostic (ICD-10-PCS; 2022-04-19)
PROC: 0BBJ8ZX Excision of Left Lower Lung Lobe, Via Natural or Artificial Opening Endoscopic, Diagnostic (ICD-10-PCS; principal; 2022-04-19 08:30)
PROC: 8E0W8CZ Robotic Assisted Procedure of Trunk Region, Via Natural or Artificial Opening Endoscopic (ICD-10-PCS; 2022-04-19 08:30)
DX: E22.2 Syndrome of inappropriate secretion of antidiuretic hormone (principal); C34.32 Malignant neoplasm of lower lobe, left bronchus or lung; E11.9 Type 2 diabetes mellitus without complications; I10 Essential (primary) hypertension; F32.A Depression, unspecified; F41.9 Anxiety disorder, unspecified; F43.10 Post-traumatic stress disorder, unspecified; N40.1 Benign prostatic hyperplasia with lower urinary tract symptoms; E83.42 Hypomagnesemia; R33.9 Retention of urine, unspecified; F17.220 Nicotine dependence, chewing tobacco, uncomplicated; G25.81 Restless legs syndrome; D50.9 Iron deficiency anemia, unspecified; R00.1 Bradycardia, unspecified; K21.9 Gastro-esophageal reflux disease without esophagitis; G25.0 Essential tremor; R19.7 Diarrhea, unspecified; Z79.899 Other long term (current) drug therapy; Z98.1 Arthrodesis status; Z79.4 Long term (current) use of insulin

== ENCOUNTER 2022-04-20 08:28 | Outpatient (RCR) | payer MEDICARE ==
[~2022-04-20 08:28] MED LIST changes: -ALBUTEROL SULFATE 2.5 MG/0.5 ML INH NEB SOLN INH ONE; +CIPR-249 PO; -LIDOCAINE 4% INJ 5ML AMP NEB ONE; +LISI5TAB11 PO; +MAGN400T2 PO; +PROP20TA PO; +SENN-52 PO; +SODI1TAB6 PO
== END 2022-04-23 ==
LOC: M ONCR 08:28
PROVIDERS: ATTEND General Practice
DX: C34.32 Malignant neoplasm of lower lobe, left bronchus or lung (principal)

== ENCOUNTER → 2022-05-04 | Outpatient (REF) | payer MEDICARE ==
[~2022-05-04] MED LIST changes: +ONDA-84 PO; +PROC10TA5 PO
== END ==
LOC: M SHH 15:10
PROVIDERS: ATTEND Family Medicine
DX: E87.1 Hypo-osmolality and hyponatremia (principal)

== ENCOUNTER 2022-05-11 07:13 | Inpatient (IN) | payer MEDICARE, OTHER ==
[~2022-05-11] VITALS: Ht 175.3 cm; Wt 91.8 kg
[2022-05-11 08:08] LABS: BASO % 0.6 % (0.0-1.0); EOS # 0.1 10^3/uL (0.0-0.5); EOS % 1.4 % (0.0-3.0); HEMATOCRIT 29.3 % (42.0-52.0); HEMOGLOBIN 10.2 g/dl (13.5-17.5); LYMPH # 0.2 10^3/uL (1.5-5.0); LYMPH % 4.5 % (24.0-44.0); MEAN CORPUSCULAR HEMOGLOBIN 34.7 pg (27.0-33.0); MEAN CORPUSCULAR HGB CONC 34.8 g/dl (32.0-36.5); MEAN CORPUSCULAR VOLUME 99.7 fl (80.0-96.0); MONO # 0.1 10^3/uL (0.0-0.8); MONO % 2.2 % (2.0-8.0); NEUTROPHILS # 3.3 10^3/uL (1.5-8.5); RED BLOOD COUNT 2.94 10^6/uL (4.30-6.10); WHITE BLOOD COUNT 3.6 10^3/uL (4.0-10.0)
[2022-05-11 08:17] LABS: INR 1.01; PROTHROMBIN TIME 13.7 SECONDS (12.7-14.5)
[2022-05-11 08:18] LABS: PARTIAL THROMBOPLASTIN TIME 25.9 SECONDS (25.9-37.0)
[2022-05-11] MEDS: MORPHINE 4 MG/ML 1ML VIAL/SYRINGE IV PRN ×2 (08:20→09:41)
[2022-05-11 08:23] LABS: ABG BASE EXCESS -3.4 (-2.0-2.0); ABG HCO3 20.7 MEQ/L (22.0-26.0); ABG O2 SATURATION 96.4 % (95.0-99.0); ABG PARTIAL PRESSURE CO2 33.9 mmHg (35.0-45.0); ABG PARTIAL PRESSURE O2 88.5 mmHg (75.0-100.0); ABG STANDARD HCO3 21.6 MEQ/L (22.0-26.0); ABG TOTAL CO2 21.8 MEQ/L (23.0-31.0); ABG pH (ARTERIAL) 7.404 UNITS (7.350-7.450)
[2022-05-11 08:34] LABS: CK-MB VALUE MASS 2.7 NG/ML (<3.6); MB/CK RELATIVE INDEX 2.31 (< OR =4)
[2022-05-11 08:42] LABS: ALBUMIN 3.5 GM/DL (3.2-5.2); ALT/SGPT 54 U/L (12-78); BILIRUBIN,DIRECT 0.3 MG/DL (0.0-0.2); BILIRUBIN,TOTAL 0.6 MG/DL (0.2-1.0); BLOOD UREA NITROGEN 15 MG/DL (7-18); CARBON DIOXIDE LEVEL 23 MEQ/L (21-32); CHLORIDE LEVEL 101 MEQ/L (98-107); CREATININE FOR GFR 0.84 MG/DL (0.70-1.30); FREE T4 0.87 NG/DL (0.76-1.46); GLOMERULAR FILTRATION RATE > 60.0 (>42); GLUCOSE, FASTING 124 MG/DL (70-100); LIPASE 228 U/L (73-393); NT-PRO BNP 2332 PG/ML (<450); POTASSIUM SERUM 3.6 MEQ/L (3.5-5.1); SODIUM LEVEL 131 MEQ/L (136-145); TOTAL PROTEIN 6.4 GM/DL (6.4-8.2)
[2022-05-11] MEDS: PROPRANOLOL 20 MG TAB PO SCH (09:00)
[2022-05-11] MEDS: PANTOPRAZOLE 40MG VIAL IV SCH ×2 (09:00→23:15)
[2022-05-11] MEDS: lisinopriL 5 MG TAB PO SCH (09:00)
[2022-05-11] MEDS: ATORVASTATIN 20 MG TAB PO SCH (09:00)
[2022-05-11] MEDS: MULTIVITAMINS/MINERALS THERAP 1 TAB PO SCH (09:00)
[2022-05-11 09:07] LABS: PLATELET COUNT, AUTOMATED 88 10^3/uL (150-450)
[2022-05-11] MEDS ORDERED: ISOVUE-370 76% 100ML VIAL As Ordered ONE (09:39)
[2022-05-11 10:11] LABS: CK-MB VALUE MASS 2.9 NG/ML (<3.6); MB/CK RELATIVE INDEX 2.64 (< OR =4)
[2022-05-11] MEDS ORDERED: metroNIDAZOLE 500 MG in IV 1 EA IV ONE ×2 (10:45→12:00)
[2022-05-11] MEDS ORDERED: MORPHINE 4 MG/ML 1ML VIAL/SYRINGE IV ONE (10:50)
[2022-05-11] MEDS ORDERED: CIPROFLOXACIN 400 MG in IV 1 EA IV ONE (11:00)
[2022-05-11] MEDS ORDERED: ROPI2TAB3 PO (11:38)
[2022-05-11] MEDS ORDERED: AMLO1TAB25 PO (11:38)
[2022-05-11] MEDS ORDERED: SIME80CH5 PO (11:38)
[2022-05-11] MEDS ORDERED: FLOM0.4C39 PO (11:38)
[2022-05-11] MEDS ORDERED: TOLV15TA PO (11:38)
[2022-05-11] MEDS ORDERED: PROP20TA72 PO (11:38)
[2022-05-11] MEDS ORDERED: MAGN400T2 PO (11:38)
[2022-05-11] MEDS ORDERED: SODI1TAB6 PO (11:38)
[2022-05-11] MEDS ORDERED: LISI5TAB11 PO (11:38)
[2022-05-11] MEDS ORDERED: ATOR1TAB21 PO (11:38)
[2022-05-11] MEDS ORDERED: HOME MED LIST COMPLETE! XX SCH (11:40)
[2022-05-11] MEDS ORDERED: MAALOX 30 ML SUSP *UDC PO ONE (11:40)
[2022-05-11] MEDS ORDERED: KETOROLAC 30 MG/ML 1ML VIAL IV ONE (11:40)
[2022-05-11] MEDS ORDERED: oxyCODONE 10 MG CR TAB PO ONE (11:40)
[2022-05-11] MEDS ORDERED: DEXTROSE 50% 50 ML SYRINGE IV PRN (11:45)
[2022-05-11] MEDS ORDERED: BISACODYL 10 MG SUPP PR ONE (11:45)
[2022-05-11] MEDS ORDERED: GLUCAGON INJ 1MG VIAL SC PRN (11:45)
[2022-05-11] MEDS ORDERED: GLUCOSE 4GM CHEW TABLET PO PRN (11:45)
[2022-05-11] MEDS: INSULIN LISPRO (NovoLOG) PER UNIT SC SCH ×4 (13:28→23:13)
[2022-05-11] MEDS: SUCRALFATE SUSP 1GM/10ML UD PO SCH ×2 (14:00→22:00)
[2022-05-11] MEDS: TAMSULOSIN 0.4 MG CAP PO SCH (14:44)
[2022-05-11] MEDS: HEPARIN SOD (PORCINE) 5000UNITS/ML 1ML VIAL/SYRINGE SQ SCH ×2 (14:49→22:00)
[2022-05-11 15:50] LABS: FERRITIN 247 NG/ML (26-388); IRON (FE) 231 UG/DL (65-175); PERCENT SATURATION 92.4 % (19.7-50.0); TOTAL IRON BINDING CAPACITY 250 UG/DL (250-450)
[2022-05-11] MEDS: MAGNESIUM OXIDE 400MG TAB (MAG-OX) PO SCH ×2 (16:00→23:12)
[2022-05-11 16:17] LABS: VITAMIN B12 LEVEL 513 PG/ML
[2022-05-11] MEDS: HYDROMORPHONE HCL 0.5 MG/ 0.5 ML SYRINGE (J1170 PER 1) IV PRN (19:44)
[2022-05-11] MEDS: oxyCODONE 5MG TAB PO PRN (20:51)
[2022-05-11] MEDS: metroNIDAZOLE 500 MG in IV 1 EA IV SCH (20:52)
[2022-05-11] MEDS: SODIUM CHLORIDE 1 GM TAB PO SCH (21:00)
[2022-05-11] MEDS: CIPROFLOXACIN 400 MG in IV 1 EA IV SCH (23:00)
[2022-05-11] MEDS: SERTRALINE 100 MG TAB PO SCH (23:12)
[2022-05-11] MEDS: LEVEMIR (INSULIN DETEMIR) 1 UNITS/0.01ML SC SCH (23:15)
[2022-05-12] MEDS: SODIUM CHLORIDE 1 GM TAB PO SCH ×4 (00:47→20:01)
[2022-05-12] MEDS: rOPINIRole 2MG TAB PO SCH ×2 (00:47→20:04)
[2022-05-12] MEDS: PRIMIDONE 250 MG TAB PO SCH ×3 (00:47→19:57)
[2022-05-12] MEDS: metroNIDAZOLE 500 MG in IV 1 EA IV SCH ×3 (03:48→19:58)
[2022-05-12] MEDS: HYDROMORPHONE HCL 0.5 MG/ 0.5 ML SYRINGE (J1170 PER 1) IV PRN (03:49)
[2022-05-12] MEDS: oxyCODONE 5MG TAB PO PRN (05:11)
[2022-05-12] MEDS: SUCRALFATE SUSP 1GM/10ML UD PO SCH ×3 (05:59→21:44)
[2022-05-12] MEDS: HEPARIN SOD (PORCINE) 5000UNITS/ML 1ML VIAL/SYRINGE SQ SCH ×3 (05:59→21:43)
[2022-05-12 06:27] LABS: HEMATOCRIT 26.9 % (42.0-52.0); HEMOGLOBIN 9.7 g/dl (13.5-17.5); MEAN CORPUSCULAR HEMOGLOBIN 35.7 pg (27.0-33.0); MEAN CORPUSCULAR HGB CONC 36.1 g/dl (32.0-36.5); MEAN CORPUSCULAR VOLUME 98.9 fl (80.0-96.0); RED BLOOD COUNT 2.72 10^6/uL (4.30-6.10); WHITE BLOOD COUNT 3.8 10^3/uL (4.0-10.0)
[2022-05-12 06:32] LABS: PLATELET COUNT, AUTOMATED 81 10^3/uL (150-450)
[2022-05-12 06:54] LABS: BLOOD UREA NITROGEN 21 MG/DL (7-18); CALCIUM LEVEL 8.3 MG/DL (8.8-10.2); CARBON DIOXIDE LEVEL 22 MEQ/L (21-32); CHLORIDE LEVEL 100 MEQ/L (98-107); CREATININE FOR GFR 0.84 MG/DL (0.70-1.30); GLOMERULAR FILTRATION RATE > 60.0 (>42); GLUCOSE, FASTING 160 MG/DL (70-100); PHOSPHORUS LEVEL 2.3 MG/DL (2.5-4.9); POTASSIUM SERUM 3.9 MEQ/L (3.5-5.1); SODIUM LEVEL 128 MEQ/L (136-145)
[2022-05-12] MEDS: INSULIN LISPRO (NovoLOG) PER UNIT SC SCH ×4 (08:41→21:00)
[2022-05-12] MEDS ORDERED: TOLVAPTAN 15 MG TAB (SAMSCA) PO SCH (09:00)
[2022-05-12] MEDS: PROPRANOLOL 20 MG TAB PO SCH (09:13)
[2022-05-12] MEDS: MAGNESIUM OXIDE 400MG TAB (MAG-OX) PO SCH ×3 (09:14→19:57)
[2022-05-12] MEDS: lisinopriL 5 MG TAB PO SCH (09:14)
[2022-05-12] MEDS: TAMSULOSIN 0.4 MG CAP PO SCH (09:14)
[2022-05-12] MEDS: MULTIVITAMINS/MINERALS THERAP 1 TAB PO SCH (09:14)
[2022-05-12] MEDS: ATORVASTATIN 20 MG TAB PO SCH (09:15)
[2022-05-12] MEDS: PANTOPRAZOLE 40MG VIAL IV SCH ×2 (09:15→19:58)
[2022-05-12] MEDS: CIPROFLOXACIN 400 MG in IV 1 EA IV SCH ×2 (12:04→21:43)
[2022-05-12 14:07] VITALS: BP 115/55
[2022-05-12 15:53] VITALS: BP 124/56
[2022-05-12] MEDS: SERTRALINE 100 MG TAB PO SCH (19:57)
[2022-05-12 20:07] VITALS: BP 149/68
[2022-05-12] MEDS: LEVEMIR (INSULIN DETEMIR) 1 UNITS/0.01ML SC SCH (22:07)
[2022-05-12 23:55] VITALS: BP 159/73
[2022-05-13 04:19] VITALS: BP 132/70
[2022-05-13] MEDS: SUCRALFATE SUSP 1GM/10ML UD PO SCH ×3 (05:16→23:16)
[2022-05-13] MEDS: HEPARIN SOD (PORCINE) 5000UNITS/ML 1ML VIAL/SYRINGE SQ SCH ×3 (05:17→23:17)
[2022-05-13] MEDS: metroNIDAZOLE 500 MG in IV 1 EA IV SCH ×3 (05:17→21:03)
[2022-05-13 07:26] LABS: HEMATOCRIT 24.9 % (42.0-52.0); HEMOGLOBIN 8.8 g/dl (13.5-17.5); MEAN CORPUSCULAR HEMOGLOBIN 34.6 pg (27.0-33.0); MEAN CORPUSCULAR HGB CONC 35.3 g/dl (32.0-36.5); RED BLOOD COUNT 2.54 10^6/uL (4.30-6.10); WHITE BLOOD COUNT 3.6 10^3/uL (4.0-10.0)
[2022-05-13 07:27] LABS: PLATELET COUNT, AUTOMATED 75 10^3/uL (150-450)
[2022-05-13 07:53] LABS: BLOOD UREA NITROGEN 22 MG/DL (7-18); CARBON DIOXIDE LEVEL 25 MEQ/L (21-32); CHLORIDE LEVEL 102 MEQ/L (98-107); CREATININE FOR GFR 0.69 MG/DL (0.70-1.30); GLOMERULAR FILTRATION RATE > 60.0 (>42); GLUCOSE, FASTING 135 MG/DL (70-100); POTASSIUM SERUM 3.8 MEQ/L (3.5-5.1); SODIUM LEVEL 133 MEQ/L (136-145)
[2022-05-13 08:01] VITALS: BP 160/74
[2022-05-13] MEDS: FLUCONAZOLE 100 MG TAB PO SCH (09:39)
[2022-05-13] MEDS: SODIUM CHLORIDE 1 GM TAB PO SCH ×3 (09:39→21:05)
[2022-05-13] MEDS: GI COCKTAIL 50ML BTL(HYOSCYAMINE/MAALOX/LIDOCAINE VISCOUS)(1:3:1) PO PRN (09:39)
[2022-05-13] MEDS: PANTOPRAZOLE 40MG VIAL IV SCH ×2 (09:39→21:03)
[2022-05-13] MEDS: lisinopriL 5 MG TAB PO SCH (09:40)
[2022-05-13] MEDS: PRIMIDONE 250 MG TAB PO SCH ×2 (09:40→21:05)
[2022-05-13] MEDS: MULTIVITAMINS/MINERALS THERAP 1 TAB PO SCH (09:40)
[2022-05-13] MEDS: ATORVASTATIN 20 MG TAB PO SCH (09:40)
[2022-05-13] MEDS: PROPRANOLOL 20 MG TAB PO SCH (09:40)
[2022-05-13] MEDS: MAGNESIUM OXIDE 400MG TAB (MAG-OX) PO SCH ×3 (09:40→21:05)
[2022-05-13] MEDS: TAMSULOSIN 0.4 MG CAP PO SCH (09:40)
[2022-05-13] MEDS: INSULIN LISPRO (NovoLOG) PER UNIT SC SCH ×4 (09:40→19:58)
[2022-05-13] MEDS: CIPROFLOXACIN 400 MG in IV 1 EA IV SCH ×2 (11:09→23:16)
[2022-05-13 11:59] VITALS: BP 141/64
[2022-05-13] MEDS: MIRALAX *UNIT DOSE* 17GM PACKET PO PRN (14:12)
[2022-05-13 16:23] VITALS: BP 137/64
[2022-05-13 20:45] VITALS: BP 172/74
[2022-05-13] MEDS: LEVEMIR (INSULIN DETEMIR) 1 UNITS/0.01ML SC SCH (21:04)
[2022-05-13] MEDS: rOPINIRole 2MG TAB PO SCH (21:05)
[2022-05-13] MEDS: SERTRALINE HCL 50 MG TAB PO SCH (21:05)
[2022-05-14 00:03] VITALS: BP 159/64
[2022-05-14 04:08] VITALS: BP 164/75
[2022-05-14] MEDS: SUCRALFATE SUSP 1GM/10ML UD PO SCH ×3 (05:12→21:42)
[2022-05-14] MEDS: HEPARIN SOD (PORCINE) 5000UNITS/ML 1ML VIAL/SYRINGE SQ SCH ×3 (05:12→21:42)
[2022-05-14] MEDS: metroNIDAZOLE 500 MG in IV 1 EA IV SCH (05:12)
[2022-05-14 06:51] LABS: HEMATOCRIT 23.6 % (42.0-52.0); HEMOGLOBIN 8.6 g/dl (13.5-17.5); MEAN CORPUSCULAR HGB CONC 36.4 g/dl (32.0-36.5); MEAN CORPUSCULAR VOLUME 95.9 fl (80.0-96.0); RED BLOOD COUNT 2.46 10^6/uL (4.30-6.10); WHITE BLOOD COUNT 2.8 10^3/uL (4.0-10.0)
[2022-05-14 06:53] LABS: PLATELET COUNT, AUTOMATED 67 10^3/uL (150-450)
[2022-05-14 07:21] LABS: ALBUMIN 2.9 GM/DL (3.2-5.2); ALT/SGPT 28 U/L (12-78); BILIRUBIN,DIRECT 0.2 MG/DL (0.0-0.2); BILIRUBIN,TOTAL 0.6 MG/DL (0.2-1.0); BLOOD UREA NITROGEN 16 MG/DL (7-18); CARBON DIOXIDE LEVEL 24 MEQ/L (21-32); CHLORIDE LEVEL 99 MEQ/L (98-107); CREATININE FOR GFR 0.55 MG/DL (0.70-1.30); GLOMERULAR FILTRATION RATE > 60.0 (>42); GLUCOSE, FASTING 136 MG/DL (70-100); POTASSIUM SERUM 3.5 MEQ/L (3.5-5.1); SODIUM LEVEL 128 MEQ/L (136-145); TOTAL PROTEIN 5.4 GM/DL (6.4-8.2)
[2022-05-14 07:27] VITALS: BP 170/70
[2022-05-14] MEDS: SODIUM CHLORIDE 1 GM TAB PO SCH ×3 (08:01→21:43)
[2022-05-14] MEDS: MULTIVITAMINS/MINERALS THERAP 1 TAB PO SCH (08:01)
[2022-05-14] MEDS: TAMSULOSIN 0.4 MG CAP PO SCH (08:02)
[2022-05-14] MEDS: ATORVASTATIN 20 MG TAB PO SCH (08:02)
[2022-05-14] MEDS: PROPRANOLOL 20 MG TAB PO SCH (08:02)
[2022-05-14] MEDS: FLUCONAZOLE 100 MG TAB PO SCH (08:02)
[2022-05-14] MEDS: PRIMIDONE 250 MG TAB PO SCH ×2 (08:03→21:43)
[2022-05-14] MEDS: lisinopriL 5 MG TAB PO SCH (08:03)
[2022-05-14] MEDS: MAGNESIUM OXIDE 400MG TAB (MAG-OX) PO SCH ×3 (08:03→21:41)
[2022-05-14] MEDS: PANTOPRAZOLE 40MG VIAL IV SCH (08:03)
[2022-05-14] MEDS: INSULIN LISPRO (NovoLOG) PER UNIT SC SCH ×4 (08:03→21:00)
[2022-05-14 12:09] VITALS: BP 143/67
[2022-05-14] MEDS: OMEPRAZOLE 20MG CAP PO SCH ×2 (16:32→16:52)
[2022-05-14 16:34] VITALS: BP 135/60
[2022-05-14 20:00] VITALS: BP 168/72
[2022-05-14] MEDS ORDERED: OMEPRAZOLE 20MG CAP PO SCH (21:00)
[2022-05-14] MEDS: LEVEMIR (INSULIN DETEMIR) 1 UNITS/0.01ML SC SCH (21:42)
[2022-05-14] MEDS: rOPINIRole 2MG TAB PO SCH (21:42)
[2022-05-14] MEDS: SERTRALINE HCL 50 MG TAB PO SCH (21:42)
[2022-05-15] VITALS (7 sets, daily range): BP systolic 140–177; BP diastolic 52–78
[2022-05-15] MEDS: SUCRALFATE SUSP 1GM/10ML UD PO SCH ×3 (05:47→21:27)
[2022-05-15] MEDS: HEPARIN SOD (PORCINE) 5000UNITS/ML 1ML VIAL/SYRINGE SQ SCH ×3 (05:48→21:27)
[2022-05-15 05:56] LABS: HEMATOCRIT 24.4 % (42.0-52.0); HEMOGLOBIN 8.9 g/dl (13.5-17.5); MEAN CORPUSCULAR HEMOGLOBIN 34.1 pg (27.0-33.0); MEAN CORPUSCULAR HGB CONC 36.5 g/dl (32.0-36.5); MEAN CORPUSCULAR VOLUME 93.5 fl (80.0-96.0); RED BLOOD COUNT 2.61 10^6/uL (4.30-6.10); WHITE BLOOD COUNT 2.3 10^3/uL (4.0-10.0)
[2022-05-15 06:01] LABS: ALT/SGPT 28 U/L (12-78); BILIRUBIN,DIRECT 0.2 MG/DL (0.0-0.2); BILIRUBIN,TOTAL 0.6 MG/DL (0.2-1.0); BLOOD UREA NITROGEN 11 MG/DL (7-18); CALCIUM LEVEL 7.9 MG/DL (8.8-10.2); CARBON DIOXIDE LEVEL 24 MEQ/L (21-32); CHLORIDE LEVEL 97 MEQ/L (98-107); CREATININE FOR GFR 0.53 MG/DL (0.70-1.30); GLOMERULAR FILTRATION RATE > 60.0 (>42); GLUCOSE, FASTING 120 MG/DL (70-100); PLATELET COUNT, AUTOMATED 61 10^3/uL (150-450); POTASSIUM SERUM 3.6 MEQ/L (3.5-5.1); SODIUM LEVEL 127 MEQ/L (136-145); TOTAL PROTEIN 5.7 GM/DL (6.4-8.2)
[2022-05-15] MEDS: PROPRANOLOL 20 MG TAB PO SCH (08:51)
[2022-05-15] MEDS: INSULIN LISPRO (NovoLOG) PER UNIT SC SCH ×4 (08:51→21:00)
[2022-05-15] MEDS: SODIUM CHLORIDE 1 GM TAB PO SCH ×3 (08:51→21:27)
[2022-05-15] MEDS: lisinopriL 5 MG TAB PO SCH (08:51)
[2022-05-15] MEDS: PRIMIDONE 250 MG TAB PO SCH ×2 (08:52→21:26)
[2022-05-15] MEDS: FLUCONAZOLE 100 MG TAB PO SCH (08:52)
[2022-05-15] MEDS: OMEPRAZOLE 20MG CAP PO SCH ×2 (08:52→21:26)
[2022-05-15] MEDS: MAGNESIUM OXIDE 400MG TAB (MAG-OX) PO SCH ×3 (08:52→21:26)
[2022-05-15] MEDS: TAMSULOSIN 0.4 MG CAP PO SCH (08:52)
[2022-05-15] MEDS: MULTIVITAMINS/MINERALS THERAP 1 TAB PO SCH (08:52)
[2022-05-15] MEDS: ATORVASTATIN 20 MG TAB PO SCH (08:52)
[2022-05-15] MEDS: SIMETHICONE 80MG CHEW TAB PO PRN (17:22)
[2022-05-15] MEDS: GI COCKTAIL 50ML BTL(HYOSCYAMINE/MAALOX/LIDOCAINE VISCOUS)(1:3:1) PO PRN (20:38)
[2022-05-15] MEDS: rOPINIRole 2MG TAB PO SCH (21:25)
[2022-05-15] MEDS: SERTRALINE HCL 25 MG TABLET PO SCH (21:26)
[2022-05-15] MEDS: LEVEMIR (INSULIN DETEMIR) 1 UNITS/0.01ML SC SCH (21:27)
[2022-05-15] MEDS: MIRALAX *UNIT DOSE* 17GM PACKET PO PRN (23:08)
[2022-05-16 02:00] VITALS: BP 147/70
[2022-05-16] MEDS: SUCRALFATE SUSP 1GM/10ML UD PO SCH ×3 (05:30→21:16)
[2022-05-16] MEDS: HEPARIN SOD (PORCINE) 5000UNITS/ML 1ML VIAL/SYRINGE SQ SCH (05:41)
[2022-05-16 05:54] VITALS: BP 146/72
[2022-05-16] MEDS: PROPRANOLOL 20 MG TAB PO SCH (07:54)
[2022-05-16] MEDS: SIMETHICONE 80MG CHEW TAB PO PRN ×2 (07:54→17:08)
[2022-05-16] MEDS: INSULIN LISPRO (NovoLOG) PER UNIT SC SCH ×4 (07:54→21:00)
[2022-05-16] MEDS: ATORVASTATIN 20 MG TAB PO SCH (07:54)
[2022-05-16] MEDS: TAMSULOSIN 0.4 MG CAP PO SCH (07:54)
[2022-05-16] MEDS: FLUCONAZOLE 100 MG TAB PO SCH (07:55)
[2022-05-16] MEDS: OMEPRAZOLE 20MG CAP PO SCH ×2 (07:55→21:17)
[2022-05-16] MEDS: PRIMIDONE 250 MG TAB PO SCH ×2 (07:56→21:17)
[2022-05-16] MEDS: MULTIVITAMINS/MINERALS THERAP 1 TAB PO SCH (07:56)
[2022-05-16] MEDS: MAGNESIUM OXIDE 400MG TAB (MAG-OX) PO SCH ×3 (07:56→21:18)
[2022-05-16] MEDS: lisinopriL 5 MG TAB PO SCH (07:56)
[2022-05-16] MEDS: oxyCODONE 5MG TAB PO PRN ×2 (07:57→17:08)
[2022-05-16 08:02] LABS: HEMATOCRIT 22.6 % (42.0-52.0); HEMOGLOBIN 8.6 g/dl (13.5-17.5); MEAN CORPUSCULAR HEMOGLOBIN 35.2 pg (27.0-33.0); MEAN CORPUSCULAR VOLUME 92.6 fl (80.0-96.0); RED BLOOD COUNT 2.44 10^6/uL (4.30-6.10); WHITE BLOOD COUNT 2.1 10^3/uL (4.0-10.0)
[2022-05-16 08:03] LABS: PLATELET COUNT, AUTOMATED 50 10^3/uL (150-450)
[2022-05-16 08:04] LABS: MEAN CORPUSCULAR HGB CONC 38.1 g/dl (32.0-36.5)
[2022-05-16 08:09] LABS: ALT/SGPT 28 U/L (12-78); BILIRUBIN,DIRECT 0.2 MG/DL (0.0-0.2); BILIRUBIN,TOTAL 0.5 MG/DL (0.2-1.0); BLOOD UREA NITROGEN 9 MG/DL (7-18); CALCIUM LEVEL 7.8 MG/DL (8.8-10.2); CARBON DIOXIDE LEVEL 25 MEQ/L (21-32); CHLORIDE LEVEL 91 MEQ/L (98-107); CREATININE FOR GFR 0.56 MG/DL (0.70-1.30); GLOMERULAR FILTRATION RATE > 60.0 (>42); GLUCOSE, FASTING 145 MG/DL (70-100); POTASSIUM SERUM 3.6 MEQ/L (3.5-5.1); SODIUM LEVEL 122 MEQ/L (136-145); TOTAL PROTEIN 5.8 GM/DL (6.4-8.2)
[2022-05-16 10:00] VITALS: BP 135/58
[2022-05-16] MEDS: DOCUSATE SODIUM 100MG CAPSULE PO SCH ×2 (10:40→21:17)
[2022-05-16] MEDS: GI COCKTAIL 50ML BTL(HYOSCYAMINE/MAALOX/LIDOCAINE VISCOUS)(1:3:1) PO PRN ×2 (10:40→18:30)
[2022-05-16] MEDS: SODIUM CHLORIDE 1 GM TAB PO SCH ×3 (10:40→21:18)
[2022-05-16] MEDS: TOLVAPTAN 15 MG TAB (SAMSCA) PO SCH (10:40)
[2022-05-16] MEDS: HYDROMORPHONE HCL 0.5 MG/ 0.5 ML SYRINGE (J1170 PER 1) IV PRN (12:37)
[2022-05-16 14:00] VITALS: BP 136/59
[2022-05-16] MEDS: MIRALAX *UNIT DOSE* 17GM PACKET PO PRN (17:07)
[2022-05-16] MEDS ORDERED: DARBEPOETIN 200MCG/0.4ML *NON-DIALYSIS* SYRINGE (J0881 PER 1MCG) SC ONE (17:15)
[2022-05-16 18:00] VITALS: BP 135/60
[2022-05-16 18:17] LABS: EOS % 1.4 % (0.0-3.0); HEMATOCRIT 24.9 % (42.0-52.0); HEMOGLOBIN 9.1 g/dl (13.5-17.5); LYMPH # 0.3 10^3/uL (1.5-5.0); LYMPH % 15.9 % (24.0-44.0); MEAN CORPUSCULAR HEMOGLOBIN 34.7 pg (27.0-33.0); MEAN CORPUSCULAR HGB CONC 36.5 g/dl (32.0-36.5); MONO # 0.1 10^3/uL (0.0-0.8); MONO % 5.8 % (2.0-8.0); NEUTROPHILS # 1.6 10^3/uL (1.5-8.5); NEUTROPHILS % 75.4 % (36.0-66.0); RED BLOOD COUNT 2.62 10^6/uL (4.30-6.10); WHITE BLOOD COUNT 2.1 10^3/uL (4.0-10.0)
[2022-05-16 18:18] LABS: PLATELET COUNT, AUTOMATED 49 10^3/uL (150-450)
[2022-05-16] MEDS: SERTRALINE HCL 25 MG TABLET PO SCH (21:17)
[2022-05-16] MEDS: busPIRone 5 MG TAB PO PRN (21:17)
[2022-05-16] MEDS: rOPINIRole 2MG TAB PO SCH (21:17)
[2022-05-16] MEDS: ONDANSETRON 4MG TAB PO PRN (21:17)
[2022-05-16] MEDS: SENNA 8.6 MG TAB (SENOKOT) PO SCH (21:18)
[2022-05-16] MEDS: LEVEMIR (INSULIN DETEMIR) 1 UNITS/0.01ML SC SCH (21:21)
[2022-05-16 22:00] VITALS: BP 142/60
[2022-05-17 02:00] VITALS: BP 158/68
[2022-05-17] MEDS: SUCRALFATE SUSP 1GM/10ML UD PO SCH ×3 (04:56→21:41)
[2022-05-17 06:00] VITALS: BP 160/68
[2022-05-17 06:52] LABS: BASO % 1.4 % (0.0-1.0); EOS % 1.4 % (0.0-3.0); HEMATOCRIT 21.4 % (42.0-52.0); HEMOGLOBIN 7.9 g/dl (13.5-17.5); LYMPH # 0.3 10^3/uL (1.5-5.0); LYMPH % 21.3 % (24.0-44.0); MEAN CORPUSCULAR HEMOGLOBIN 34.2 pg (27.0-33.0); MEAN CORPUSCULAR VOLUME 92.6 fl (80.0-96.0); MONO # 0.1 10^3/uL (0.0-0.8); MONO % 7.1 % (2.0-8.0); NEUTROPHILS % 68.1 % (36.0-66.0); RED BLOOD COUNT 2.31 10^6/uL (4.30-6.10); WHITE BLOOD COUNT 1.4 10^3/uL (4.0-10.0)
[2022-05-17 07:17] LABS: MEAN CORPUSCULAR HGB CONC 36.9 g/dl (32.0-36.5)
[2022-05-17 07:18] LABS: PLATELET COUNT, AUTOMATED 37 10^3/uL (150-450)
[2022-05-17 07:30] LABS: ALBUMIN 2.9 GM/DL (3.2-5.2); ALT/SGPT 25 U/L (12-78); BILIRUBIN,TOTAL 0.4 MG/DL (0.2-1.0); BLOOD UREA NITROGEN 11 MG/DL (7-18); CARBON DIOXIDE LEVEL 24 MEQ/L (21-32); CHLORIDE LEVEL 95 MEQ/L (98-107); CREATININE FOR GFR 0.58 MG/DL (0.70-1.30); GLOMERULAR FILTRATION RATE > 60.0 (>42); GLUCOSE, FASTING 126 MG/DL (70-100); POTASSIUM SERUM 3.4 MEQ/L (3.5-5.1); SODIUM LEVEL 128 MEQ/L (136-145); TOTAL PROTEIN 5.3 GM/DL (6.4-8.2)
[2022-05-17] MEDS ORDERED: POTASSIUM CHLORIDE 10MEQ SR TABLET PO ONE (08:15)
[2022-05-17] MEDS: OMEPRAZOLE 20MG CAP PO SCH ×2 (08:40→21:41)
[2022-05-17] MEDS: INSULIN LISPRO (NovoLOG) PER UNIT SC SCH ×4 (08:40→21:00)
[2022-05-17] MEDS: ATORVASTATIN 20 MG TAB PO SCH (08:41)
[2022-05-17] MEDS: DOCUSATE SODIUM 100MG CAPSULE PO SCH ×2 (08:41→21:00)
[2022-05-17] MEDS: PROPRANOLOL 20 MG TAB PO SCH (08:41)
[2022-05-17] MEDS: TAMSULOSIN 0.4 MG CAP PO SCH (08:41)
[2022-05-17] MEDS: MAGNESIUM OXIDE 400MG TAB (MAG-OX) PO SCH ×3 (08:41→21:41)
[2022-05-17] MEDS: SODIUM CHLORIDE 1 GM TAB PO SCH ×3 (08:42→21:41)
[2022-05-17] MEDS: MULTIVITAMINS/MINERALS THERAP 1 TAB PO SCH (08:42)
[2022-05-17] MEDS: oxyCODONE 5MG TAB PO PRN ×2 (08:42→16:39)
[2022-05-17] MEDS: SIMETHICONE 80MG CHEW TAB PO PRN ×2 (08:42→16:40)
[2022-05-17] MEDS: TOLVAPTAN 15 MG TAB (SAMSCA) PO SCH (08:42)
[2022-05-17] MEDS: GI COCKTAIL 50ML BTL(HYOSCYAMINE/MAALOX/LIDOCAINE VISCOUS)(1:3:1) PO PRN (08:42)
[2022-05-17] MEDS: PRIMIDONE 250 MG TAB PO SCH ×2 (08:42→21:40)
[2022-05-17] MEDS: FLUCONAZOLE 100 MG TAB PO SCH (08:42)
[2022-05-17] MEDS: lisinopriL 5 MG TAB PO SCH (08:44)
[2022-05-17] MEDS ORDERED: LACTULOSE 20 GM/30 ML SYRUP UD PO SCH ×2 (09:00→18:00)
[2022-05-17 10:00] VITALS: BP 139/54
[2022-05-17] MEDS: FILGRASTIM 300 MCG/0.5 ML SYRINGE **SC ADMINISTRATION ONLY SC SCH (10:32)
[2022-05-17 14:04] VITALS: BP 127/49
[2022-05-17] MEDS: FLUOCINONIDE 0.05% OINT 15GM TOP SCH (16:22)
[2022-05-17] MEDS: ONDANSETRON 4MG TAB PO PRN (16:39)
[2022-05-17] MEDS: SENNA 8.6 MG TAB (SENOKOT) PO SCH (21:00)
[2022-05-17] MEDS: LEVEMIR (INSULIN DETEMIR) 1 UNITS/0.01ML SC SCH (21:39)
[2022-05-17] MEDS: rOPINIRole 2MG TAB PO SCH (21:40)
[2022-05-17] MEDS: busPIRone 5 MG TAB PO PRN (21:40)
[2022-05-17 22:00] VITALS: BP 160/69
[2022-05-18] VITALS (7 sets, daily range): BP systolic 137–149; BP diastolic 57–65
[2022-05-18] MEDS: SUCRALFATE SUSP 1GM/10ML UD PO SCH ×3 (05:35→21:36)
[2022-05-18 07:25] LABS: MEAN CORPUSCULAR HEMOGLOBIN 34.6 pg (27.0-33.0); MEAN CORPUSCULAR HGB CONC 36.4 g/dl (32.0-36.5); MEAN CORPUSCULAR VOLUME 95.2 fl (80.0-96.0); RED BLOOD COUNT 2.31 10^6/uL (4.30-6.10); WHITE BLOOD COUNT 2.2 10^3/uL (4.0-10.0)
[2022-05-18 07:31] LABS: PLATELET COUNT, AUTOMATED 31 10^3/uL (150-450)
[2022-05-18 08:05] LABS: ALT/SGPT 24 U/L (12-78); BILIRUBIN,TOTAL 0.4 MG/DL (0.2-1.0); BLOOD UREA NITROGEN 9 MG/DL (7-18); CALCIUM LEVEL 7.8 MG/DL (8.8-10.2); CARBON DIOXIDE LEVEL 26 MEQ/L (21-32); CHLORIDE LEVEL 101 MEQ/L (98-107); CREATININE FOR GFR 0.67 MG/DL (0.70-1.30); GLOMERULAR FILTRATION RATE > 60.0 (>42); GLUCOSE, FASTING 147 MG/DL (70-100); SODIUM LEVEL 132 MEQ/L (136-145); TOTAL PROTEIN 5.6 GM/DL (6.4-8.2)
[2022-05-18] MEDS: INSULIN LISPRO (NovoLOG) PER UNIT SC SCH ×4 (08:22→21:00)
[2022-05-18] MEDS ORDERED: LACTULOSE 20 GM/30 ML SYRUP UD PO SCH (09:00)
[2022-05-18] MEDS: LACTULOSE 20 GM/30 ML SYRUP UD PO SCH ×2 (09:53→13:08)
[2022-05-18] MEDS: DOCUSATE SODIUM 100MG CAPSULE PO SCH ×2 (09:54→10:25)
[2022-05-18] MEDS: SODIUM CHLORIDE 1 GM TAB PO SCH ×3 (09:54→21:37)
[2022-05-18] MEDS: MULTIVITAMINS/MINERALS THERAP 1 TAB PO SCH (09:56)
[2022-05-18] MEDS: MAGNESIUM OXIDE 400MG TAB (MAG-OX) PO SCH ×3 (09:56→21:37)
[2022-05-18] MEDS: lisinopriL 5 MG TAB PO SCH (09:56)
[2022-05-18] MEDS: TAMSULOSIN 0.4 MG CAP PO SCH (09:56)
[2022-05-18] MEDS: ATORVASTATIN 20 MG TAB PO SCH (09:57)
[2022-05-18] MEDS: PRIMIDONE 250 MG TAB PO SCH ×2 (09:57→21:37)
[2022-05-18] MEDS: PROPRANOLOL 20 MG TAB PO SCH (09:58)
[2022-05-18] MEDS: OMEPRAZOLE 20MG CAP PO SCH ×2 (09:58→21:37)
[2022-05-18] MEDS: TOLVAPTAN 15 MG TAB (SAMSCA) PO SCH (09:59)
[2022-05-18] MEDS: FLUCONAZOLE 100 MG TAB PO SCH (10:00)
[2022-05-18] MEDS: LEVEMIR (INSULIN DETEMIR) 1 UNITS/0.01ML SC SCH ×2 (10:02→21:36)
[2022-05-18 11:23] LABS: FOLATE 14.1 NG/ML
[2022-05-18 12:33] LABS: ATYPICAL LYMPH 2 % (0-5); BASOPHILS 1 % (0-1); EOSINOPHILS 1 % (0-3); LYMPHOCYTES 12 % (16-44); NEUTROPHILS 76 % (28-66); PLATELET ESTIMATE MARKED DECREASE (NORMAL)
[2022-05-18 12:34] LABS: ANISOCYTOSIS 1+; MICROCYTOSIS 1+; POIKILOCYTOSIS 1+
[2022-05-18] MEDS: FILGRASTIM 300 MCG/0.5 ML SYRINGE **SC ADMINISTRATION ONLY SC SCH (13:08)
[2022-05-18 16:51] LABS: BASO % 0.9 % (0.0-1.0); EOS % 0.9 % (0.0-3.0); LYMPH # 0.2 10^3/uL (1.5-5.0); LYMPH % 10.4 % (24.0-44.0); MONO # 0.1 10^3/uL (0.0-0.8); MONO % 5.9 % (2.0-8.0); NEUTROPHILS # 1.8 10^3/uL (1.5-8.5); NEUTROPHILS % 80.5 % (36.0-66.0)
[2022-05-18] MEDS: SENNA 8.6 MG TAB (SENOKOT) PO SCH (21:37)
[2022-05-18] MEDS: rOPINIRole 2MG TAB PO SCH (21:37)
[2022-05-18] MEDS: busPIRone 5 MG TAB PO PRN (21:37)
[2022-05-19 02:00] VITALS: BP 138/64
[2022-05-19] MEDS: SUCRALFATE SUSP 1GM/10ML UD PO SCH ×3 (06:23→21:33)
[2022-05-19 06:30] VITALS: BP 157/72
[2022-05-19 06:47] LABS: BASO % 1.8 % (0.0-1.0); EOS % 1.8 % (0.0-3.0); HEMATOCRIT 22.8 % (42.0-52.0); HEMOGLOBIN 7.9 g/dl (13.5-17.5); LYMPH # 0.3 10^3/uL (1.5-5.0); LYMPH % 11.4 % (24.0-44.0); MEAN CORPUSCULAR HEMOGLOBIN 33.5 pg (27.0-33.0); MEAN CORPUSCULAR HGB CONC 34.6 g/dl (32.0-36.5); MEAN CORPUSCULAR VOLUME 96.6 fl (80.0-96.0); MONO # 0.1 10^3/uL (0.0-0.8); MONO % 5.5 % (2.0-8.0); NEUTROPHILS # 1.7 10^3/uL (1.5-8.5); RED BLOOD COUNT 2.36 10^6/uL (4.30-6.10); WHITE BLOOD COUNT 2.2 10^3/uL (4.0-10.0)
[2022-05-19 07:20] LABS: ALT/SGPT 23 U/L (12-78); BILIRUBIN,TOTAL 0.4 MG/DL (0.2-1.0); BLOOD UREA NITROGEN 8 MG/DL (7-18); CALCIUM LEVEL 8.1 MG/DL (8.8-10.2); CARBON DIOXIDE LEVEL 23 MEQ/L (21-32); CHLORIDE LEVEL 98 MEQ/L (98-107); CREATININE FOR GFR 0.65 MG/DL (0.70-1.30); GLOMERULAR FILTRATION RATE > 60.0 (>42); GLUCOSE, FASTING 130 MG/DL (70-100); POTASSIUM SERUM 3.6 MEQ/L (3.5-5.1); SODIUM LEVEL 130 MEQ/L (136-145); TOTAL PROTEIN 5.6 GM/DL (6.4-8.2)
[2022-05-19 07:23] LABS: PLATELET COUNT, AUTOMATED 27 10^3/uL (150-450)
[2022-05-19] MEDS ORDERED: PANTOPRAZOLE 20 MG TAB PO SCH (09:00)
[2022-05-19] MEDS: LEVEMIR (INSULIN DETEMIR) 1 UNITS/0.01ML SC SCH ×2 (09:00→21:35)
[2022-05-19] MEDS ORDERED: DARBEPOETIN 100 MCG/0.5 ML *NON-DIALYSIS* SYRINGE (J0881) SC SCH (09:00)
[2022-05-19] MEDS: INSULIN LISPRO (NovoLOG) PER UNIT SC SCH ×4 (09:01→21:35)
[2022-05-19] MEDS: TOLVAPTAN 15 MG TAB (SAMSCA) PO SCH (09:02)
[2022-05-19] MEDS: ATORVASTATIN 20 MG TAB PO SCH (09:02)
[2022-05-19] MEDS: OMEPRAZOLE 20MG CAP PO SCH ×2 (09:02→21:34)
[2022-05-19] MEDS: DOCUSATE SODIUM 100MG CAPSULE PO SCH ×2 (09:02→21:34)
[2022-05-19] MEDS: SODIUM CHLORIDE 1 GM TAB PO SCH ×3 (09:02→21:34)
[2022-05-19] MEDS: FLUCONAZOLE 100 MG TAB PO SCH (09:02)
[2022-05-19] MEDS: MULTIVITAMINS/MINERALS THERAP 1 TAB PO SCH (09:02)
[2022-05-19] MEDS: PROPRANOLOL 20 MG TAB PO SCH (09:03)
[2022-05-19] MEDS: PRIMIDONE 250 MG TAB PO SCH ×2 (09:03→21:33)
[2022-05-19] MEDS: TAMSULOSIN 0.4 MG CAP PO SCH (09:03)
[2022-05-19] MEDS: SIMETHICONE 80MG CHEW TAB PO SCH ×3 (09:03→21:34)
[2022-05-19] MEDS: MAGNESIUM OXIDE 400MG TAB (MAG-OX) PO SCH ×3 (09:03→21:33)
[2022-05-19] MEDS: lisinopriL 5 MG TAB PO SCH (09:03)
[2022-05-19 10:00] VITALS: BP 156/62
[2022-05-19] MEDS: FILGRASTIM 300 MCG/0.5 ML SYRINGE **SC ADMINISTRATION ONLY SC SCH (10:05)
[2022-05-19 14:00] VITALS: BP 120/44
[2022-05-19] MEDS: cefTRIAXone SOD 1 GM in D5W MINI-BAG PLUS 50 ML IV SCH (15:42)
[2022-05-19] MEDS: metroNIDAZOLE 500 MG in IV 1 EA IV SCH (16:48)
[2022-05-19] MEDS ORDERED: CIPROFLOXACIN 400 MG in IV 1 EA IV SCH (17:00)
[2022-05-19 18:00] VITALS: BP 147/59
[2022-05-19] MEDS: busPIRone 5 MG TAB PO PRN (21:33)
[2022-05-19] MEDS: SENNA 8.6 MG TAB (SENOKOT) PO SCH (21:34)
[2022-05-19] MEDS: rOPINIRole 2MG TAB PO SCH (21:34)
[2022-05-19 22:00] VITALS: BP 104/59
[2022-05-20] VITALS (7 sets, daily range): BP systolic 109–181; BP diastolic 55–80
[2022-05-20] MEDS: metroNIDAZOLE 500 MG in IV 1 EA IV SCH ×4 (00:26→23:22)
[2022-05-20] MEDS: SUCRALFATE SUSP 1GM/10ML UD PO SCH ×3 (05:44→21:46)
[2022-05-20] MEDS: SIMETHICONE 80MG CHEW TAB PO SCH ×3 (05:44→21:46)
[2022-05-20 06:38] LABS: BASO % 1.4 % (0.0-1.0); EOS % 2.8 % (0.0-3.0); HEMATOCRIT 21.8 % (42.0-52.0); LYMPH # 0.3 10^3/uL (1.5-5.0); LYMPH % 19.4 % (24.0-44.0); MEAN CORPUSCULAR HEMOGLOBIN 35.4 pg (27.0-33.0); MEAN CORPUSCULAR HGB CONC 36.7 g/dl (32.0-36.5); MEAN CORPUSCULAR VOLUME 96.5 fl (80.0-96.0); MONO # 0.2 10^3/uL (0.0-0.8); MONO % 13.2 % (2.0-8.0); NEUTROPHILS % 53.5 % (36.0-66.0); RED BLOOD COUNT 2.26 10^6/uL (4.30-6.10); WHITE BLOOD COUNT 1.4 10^3/uL (4.0-10.0)
[2022-05-20 06:39] LABS: NEUTROPHILS # 0.8 10^3/uL (1.5-8.5); PLATELET COUNT, AUTOMATED 29 10^3/uL (150-450)
[2022-05-20 07:04] LABS: ALT/SGPT 21 U/L (12-78); BILIRUBIN,TOTAL 0.4 MG/DL (0.2-1.0); BLOOD UREA NITROGEN 9 MG/DL (7-18); CALCIUM LEVEL 8.2 MG/DL (8.8-10.2); CARBON DIOXIDE LEVEL 26 MEQ/L (21-32); CHLORIDE LEVEL 98 MEQ/L (98-107); CREATININE FOR GFR 0.71 MG/DL (0.70-1.30); FERRITIN 376 NG/ML (26-388); GLOMERULAR FILTRATION RATE > 60.0 (>42); GLUCOSE, FASTING 172 MG/DL (70-100); IRON (FE) 161 UG/DL (65-175); PERCENT SATURATION 81.7 % (19.7-50.0); POTASSIUM SERUM 3.8 MEQ/L (3.5-5.1); SODIUM LEVEL 129 MEQ/L (136-145); TOTAL IRON BINDING CAPACITY 197 UG/DL (250-450); TOTAL PROTEIN 5.6 GM/DL (6.4-8.2)
[2022-05-20] MEDS: OMEPRAZOLE 20MG CAP PO SCH ×2 (08:33→20:16)
[2022-05-20] MEDS: MULTIVITAMINS/MINERALS THERAP 1 TAB PO SCH (08:33)
[2022-05-20] MEDS: PRIMIDONE 250 MG TAB PO SCH ×2 (08:33→20:15)
[2022-05-20] MEDS: INSULIN LISPRO (NovoLOG) PER UNIT SC SCH ×4 (08:33→20:17)
[2022-05-20] MEDS: lisinopriL 5 MG TAB PO SCH (08:34)
[2022-05-20] MEDS: oxyCODONE 5MG TAB PO PRN ×2 (08:34→16:11)
[2022-05-20] MEDS: MAGNESIUM OXIDE 400MG TAB (MAG-OX) PO SCH ×3 (08:34→20:16)
[2022-05-20] MEDS: TOLVAPTAN 15 MG TAB (SAMSCA) PO SCH (08:35)
[2022-05-20] MEDS: TAMSULOSIN 0.4 MG CAP PO SCH (08:35)
[2022-05-20] MEDS: PROPRANOLOL 20 MG TAB PO SCH (08:35)
[2022-05-20] MEDS: ATORVASTATIN 20 MG TAB PO SCH (08:35)
[2022-05-20] MEDS: SODIUM CHLORIDE 1 GM TAB PO SCH ×3 (08:35→20:16)
[2022-05-20] MEDS: LACTOBACILLUS ACIDOPHILUS CAP (BACID) PO SCH ×2 (09:30→17:19)
[2022-05-20] MEDS: LEVEMIR (INSULIN DETEMIR) 1 UNITS/0.01ML SC SCH ×2 (09:31→20:17)
[2022-05-20] MEDS: FILGRASTIM 300 MCG/0.5 ML SYRINGE **SC ADMINISTRATION ONLY SC SCH (09:32)
[2022-05-20] MEDS ORDERED: CALCIUM GLUCONATE 1,000 MG in D5W MINI-BAG PLUS 100 ML IV ONE (10:00)
[2022-05-20] MEDS: DOCUSATE SODIUM 100MG CAPSULE PO SCH (10:15)
[2022-05-20] MEDS: cefTRIAXone SOD 1 GM in D5W MINI-BAG PLUS 50 ML IV SCH (17:18)
[2022-05-20] MEDS: FLUOCINONIDE 0.05% OINT 15GM TOP SCH (17:19)
[2022-05-20] MEDS: MIRALAX *UNIT DOSE* 17GM PACKET PO PRN (20:14)
[2022-05-20] MEDS: busPIRone 5 MG TAB PO PRN (20:15)
[2022-05-20] MEDS: rOPINIRole 2MG TAB PO SCH (20:15)
[2022-05-20] MEDS: GI COCKTAIL 50ML BTL(HYOSCYAMINE/MAALOX/LIDOCAINE VISCOUS)(1:3:1) PO PRN (20:16)
[2022-05-21 02:00] VITALS: BP 137/64
[2022-05-21] MEDS: SUCRALFATE SUSP 1GM/10ML UD PO SCH ×3 (05:52→21:23)
[2022-05-21] MEDS: SIMETHICONE 80MG CHEW TAB PO SCH ×3 (05:52→21:23)
[2022-05-21 06:00] VITALS: BP 174/69
[2022-05-21 06:20] LABS: BASO % 1.7 % (0.0-1.0); EOS % 3.4 % (0.0-3.0); HEMOGLOBIN 8.3 g/dl (13.5-17.5); LYMPH # 0.2 10^3/uL (1.5-5.0); LYMPH % 16.9 % (24.0-44.0); MEAN CORPUSCULAR HEMOGLOBIN 34.6 pg (27.0-33.0); MEAN CORPUSCULAR HGB CONC 36.1 g/dl (32.0-36.5); MEAN CORPUSCULAR VOLUME 95.8 fl (80.0-96.0); MONO # 0.3 10^3/uL (0.0-0.8); MONO % 25.4 % (2.0-8.0); NEUTROPHILS % 28.9 % (36.0-66.0); WHITE BLOOD COUNT 1.2 10^3/uL (4.0-10.0)
[2022-05-21 06:54] LABS: NEUTROPHILS # 0.3 10^3/uL (1.5-8.5); PLATELET COUNT, AUTOMATED 32 10^3/uL (150-450)
[2022-05-21 06:56] LABS: ALBUMIN 3.1 GM/DL (3.2-5.2); ALT/SGPT 20 U/L (12-78); BILIRUBIN,TOTAL 0.4 MG/DL (0.2-1.0); BLOOD UREA NITROGEN 11 MG/DL (7-18); CALCIUM LEVEL 8.2 MG/DL (8.8-10.2); CARBON DIOXIDE LEVEL 26 MEQ/L (21-32); CHLORIDE LEVEL 100 MEQ/L (98-107); CREATININE FOR GFR 0.69 MG/DL (0.70-1.30); GLOMERULAR FILTRATION RATE > 60.0 (>42); GLUCOSE, FASTING 173 MG/DL (70-100); MAGNESIUM LEVEL 1.6 MG/DL (1.8-2.4); SODIUM LEVEL 132 MEQ/L (136-145); TOTAL PROTEIN 5.6 GM/DL (6.4-8.2)
[2022-05-21] MEDS ORDERED: FILGRASTIM 300 MCG/0.5 ML SYRINGE **SC ADMINISTRATION ONLY SC SCH (09:00)
[2022-05-21] MEDS: LEVEMIR (INSULIN DETEMIR) 1 UNITS/0.01ML SC SCH ×2 (09:01→21:24)
[2022-05-21] MEDS: SODIUM CHLORIDE 1 GM TAB PO SCH ×3 (09:02→20:55)
[2022-05-21] MEDS: INSULIN LISPRO (NovoLOG) PER UNIT SC SCH ×4 (09:02→21:25)
[2022-05-21] MEDS: TAMSULOSIN 0.4 MG CAP PO SCH (09:03)
[2022-05-21] MEDS: MULTIVITAMINS/MINERALS THERAP 1 TAB PO SCH (09:03)
[2022-05-21] MEDS: LACTOBACILLUS ACIDOPHILUS CAP (BACID) PO SCH ×2 (09:03→17:34)
[2022-05-21] MEDS: OMEPRAZOLE 20MG CAP PO SCH ×2 (09:03→20:56)
[2022-05-21] MEDS: DOCUSATE SODIUM 100MG CAPSULE PO SCH (09:03)
[2022-05-21] MEDS: MAGNESIUM OXIDE 400MG TAB (MAG-OX) PO SCH ×3 (09:04→20:55)
[2022-05-21] MEDS: PRIMIDONE 250 MG TAB PO SCH ×2 (09:04→20:55)
[2022-05-21] MEDS: TOLVAPTAN 15 MG TAB (SAMSCA) PO SCH (09:04)
[2022-05-21] MEDS: lisinopriL 5 MG TAB PO SCH (09:06)
[2022-05-21] MEDS: PROPRANOLOL 20 MG TAB PO SCH (09:07)
[2022-05-21] MEDS: metroNIDAZOLE 500 MG in IV 1 EA IV SCH (09:07)
[2022-05-21] MEDS: ATORVASTATIN 20 MG TAB PO SCH (09:07)
[2022-05-21 10:22] VITALS: BP 161/66
[2022-05-21] MEDS: GI COCKTAIL 50ML BTL(HYOSCYAMINE/MAALOX/LIDOCAINE VISCOUS)(1:3:1) PO PRN ×2 (11:32→17:34)
[2022-05-21] MEDS ORDERED: MAG SULF 1GM/100ML (MAG RUN) 1 GM in IV 1 EA IV ONE (14:00)
[2022-05-21] MEDS: CEFUROXIME 500 MG TAB PO SCH ×2 (14:20→20:55)
[2022-05-21 14:34] VITALS: BP 141/56
[2022-05-21] MEDS: metroNIDAZOLE (FLAGYL) 500MG TABLET PO SCH ×2 (14:39→21:23)
[2022-05-21 18:26] VITALS: BP 142/56
[2022-05-21] MEDS: rOPINIRole 2MG TAB PO SCH (20:55)
[2022-05-21] MEDS: NYSTATIN 500,000 U/5 ML SUSP UDC SS SCH (20:56)
[2022-05-21] MEDS: valACYclovir HCL 500 MG TAB PO SCH (21:23)
[2022-05-21 21:39] VITALS: BP 140/57
[2022-05-22] MEDS: SUCRALFATE SUSP 1GM/10ML UD PO SCH ×3 (05:59→22:07)
[2022-05-22] MEDS: SIMETHICONE 80MG CHEW TAB PO SCH ×3 (05:59→22:08)
[2022-05-22] MEDS: metroNIDAZOLE (FLAGYL) 500MG TABLET PO SCH ×3 (05:59→22:08)
[2022-05-22 06:00] VITALS: BP 144/64
[2022-05-22 07:02] LABS: BASO # 0.1 10^3/uL (0.0-0.2); BASO % 1.7 % (0.0-1.0); EOS % 1.1 % (0.0-3.0); HEMATOCRIT 24.8 % (42.0-52.0); HEMOGLOBIN 8.9 g/dl (13.5-17.5); LYMPH # 0.3 10^3/uL (1.5-5.0); LYMPH % 8.8 % (24.0-44.0); MEAN CORPUSCULAR HEMOGLOBIN 34.4 pg (27.0-33.0); MEAN CORPUSCULAR HGB CONC 35.9 g/dl (32.0-36.5); MEAN CORPUSCULAR VOLUME 95.8 fl (80.0-96.0); MONO # 0.6 10^3/uL (0.0-0.8); MONO % 16.4 % (2.0-8.0); NEUTROPHILS # 2.3 10^3/uL (1.5-8.5); NEUTROPHILS % 64.1 % (36.0-66.0); RED BLOOD COUNT 2.59 10^6/uL (4.30-6.10); WHITE BLOOD COUNT 3.5 10^3/uL (4.0-10.0)
[2022-05-22 07:07] LABS: PLATELET COUNT, AUTOMATED 35 10^3/uL (150-450)
[2022-05-22 07:52] LABS: ALBUMIN 3.3 GM/DL (3.2-5.2); ALT/SGPT 19 U/L (12-78); BILIRUBIN,TOTAL 0.5 MG/DL (0.2-1.0); BLOOD UREA NITROGEN 12 MG/DL (7-18); CALCIUM LEVEL 8.5 MG/DL (8.8-10.2); CARBON DIOXIDE LEVEL 25 MEQ/L (21-32); CHLORIDE LEVEL 99 MEQ/L (98-107); CREATININE FOR GFR 0.78 MG/DL (0.70-1.30); GLOMERULAR FILTRATION RATE > 60.0 (>42); GLUCOSE, FASTING 168 MG/DL (70-100); POTASSIUM SERUM 3.8 MEQ/L (3.5-5.1); SODIUM LEVEL 133 MEQ/L (136-145)
[2022-05-22 08:00] VITALS: BP 154/54
[2022-05-22] MEDS: TOLVAPTAN 15 MG TAB (SAMSCA) PO SCH (08:48)
[2022-05-22] MEDS: NYSTATIN 500,000 U/5 ML SUSP UDC SS SCH (08:48)
[2022-05-22] MEDS: INSULIN LISPRO (NovoLOG) PER UNIT SC SCH ×4 (08:48→20:50)
[2022-05-22] MEDS: DOCUSATE SODIUM 100MG CAPSULE PO SCH (08:49)
[2022-05-22] MEDS: PRIMIDONE 250 MG TAB PO SCH ×2 (08:49→20:49)
[2022-05-22] MEDS: MULTIVITAMINS/MINERALS THERAP 1 TAB PO SCH (08:49)
[2022-05-22] MEDS: TAMSULOSIN 0.4 MG CAP PO SCH (08:49)
[2022-05-22] MEDS: LACTOBACILLUS ACIDOPHILUS CAP (BACID) PO SCH ×2 (08:49→17:25)
[2022-05-22] MEDS: valACYclovir HCL 500 MG TAB PO SCH (08:49)
[2022-05-22] MEDS: lisinopriL 5 MG TAB PO SCH (08:49)
[2022-05-22] MEDS: ATORVASTATIN 20 MG TAB PO SCH (08:49)
[2022-05-22] MEDS: CEFUROXIME 500 MG TAB PO SCH ×2 (08:50→20:49)
[2022-05-22] MEDS: OMEPRAZOLE 20MG CAP PO SCH ×2 (08:50→20:49)
[2022-05-22] MEDS: MAGNESIUM OXIDE 400MG TAB (MAG-OX) PO SCH ×3 (08:50→20:50)
[2022-05-22] MEDS: PROPRANOLOL 20 MG TAB PO SCH (08:50)
[2022-05-22] MEDS: SODIUM CHLORIDE 1 GM TAB PO SCH ×3 (08:51→22:07)
[2022-05-22] MEDS ORDERED: FILGRASTIM 300 MCG/0.5 ML SYRINGE **SC ADMINISTRATION ONLY SC SCH (09:00)
[2022-05-22] MEDS: LEVEMIR (INSULIN DETEMIR) 1 UNITS/0.01ML SC SCH ×2 (09:04→20:51)
[2022-05-22] MEDS: GI COCKTAIL 50ML BTL(HYOSCYAMINE/MAALOX/LIDOCAINE VISCOUS)(1:3:1) PO PRN ×2 (09:07→17:28)
[2022-05-22 12:00] LABS: VITAMIN B12 LEVEL 759 PG/ML (247-911)
[2022-05-22 12:01] LABS: FOLATE 10.2 NG/ML (>5.4)
[2022-05-22 14:00] VITALS: BP 138/55
[2022-05-22 20:28] VITALS: BP 158/66
[2022-05-22] MEDS: rOPINIRole 2MG TAB PO SCH (20:49)
[2022-05-23 02:23] VITALS: BP 157/68
[2022-05-23] MEDS: SIMETHICONE 80MG CHEW TAB PO SCH (05:16)
[2022-05-23] MEDS: SUCRALFATE SUSP 1GM/10ML UD PO SCH (05:16)
[2022-05-23] MEDS: metroNIDAZOLE (FLAGYL) 500MG TABLET PO SCH (05:16)
[2022-05-23 06:16] LABS: BASO # 0.1 10^3/uL (0.0-0.2); BASO % 0.8 % (0.0-1.0); EOS % 0.5 % (0.0-3.0); HEMATOCRIT 23.2 % (42.0-52.0); HEMOGLOBIN 8.3 g/dl (13.5-17.5); LYMPH # 0.4 10^3/uL (1.5-5.0); LYMPH % 5.8 % (24.0-44.0); MEAN CORPUSCULAR HEMOGLOBIN 34.4 pg (27.0-33.0); MEAN CORPUSCULAR HGB CONC 35.8 g/dl (32.0-36.5); MEAN CORPUSCULAR VOLUME 96.3 fl (80.0-96.0); MONO # 0.8 10^3/uL (0.0-0.8); MONO % 12.5 % (2.0-8.0); NEUTROPHILS % 64.7 % (36.0-66.0); RED BLOOD COUNT 2.41 10^6/uL (4.30-6.10); WHITE BLOOD COUNT 6.2 10^3/uL (4.0-10.0)
[2022-05-23 06:19] VITALS: BP 160/68
[2022-05-23 06:21] LABS: PLATELET COUNT, AUTOMATED 34 10^3/uL (150-450)
[2022-05-23 06:57] LABS: ALBUMIN 3.2 GM/DL (3.2-5.2); ALT/SGPT 18 U/L (12-78); BILIRUBIN,TOTAL 0.4 MG/DL (0.2-1.0); BLOOD UREA NITROGEN 12 MG/DL (7-18); CALCIUM LEVEL 8.3 MG/DL (8.8-10.2); CARBON DIOXIDE LEVEL 25 MEQ/L (21-32); CHLORIDE LEVEL 99 MEQ/L (98-107); CREATININE FOR GFR 0.72 MG/DL (0.70-1.30); GLOMERULAR FILTRATION RATE > 60.0 (>42); GLUCOSE, FASTING 193 MG/DL (70-100); MAGNESIUM LEVEL 1.6 MG/DL (1.8-2.4); POTASSIUM SERUM 3.7 MEQ/L (3.5-5.1); SODIUM LEVEL 131 MEQ/L (136-145); TOTAL PROTEIN 5.5 GM/DL (6.4-8.2)
[2022-05-23] MEDS: INSULIN LISPRO (NovoLOG) PER UNIT SC SCH ×2 (08:17→12:14)
[2022-05-23] MEDS: LEVEMIR (INSULIN DETEMIR) 1 UNITS/0.01ML SC SCH (08:17)
[2022-05-23] MEDS: TOLVAPTAN 15 MG TAB (SAMSCA) PO SCH (08:18)
[2022-05-23] MEDS: PRIMIDONE 250 MG TAB PO SCH (08:18)
[2022-05-23] MEDS: OMEPRAZOLE 20MG CAP PO SCH (08:18)
[2022-05-23] MEDS: TAMSULOSIN 0.4 MG CAP PO SCH (08:18)
[2022-05-23] MEDS: MULTIVITAMINS/MINERALS THERAP 1 TAB PO SCH (08:18)
[2022-05-23] MEDS: DOCUSATE SODIUM 100MG CAPSULE PO SCH (08:19)
[2022-05-23] MEDS: CEFUROXIME 500 MG TAB PO SCH (08:19)
[2022-05-23] MEDS: SODIUM CHLORIDE 1 GM TAB PO SCH (08:19)
[2022-05-23] MEDS: LACTOBACILLUS ACIDOPHILUS CAP (BACID) PO SCH (08:19)
[2022-05-23] MEDS: MAGNESIUM OXIDE 400MG TAB (MAG-OX) PO SCH (08:19)
[2022-05-23] MEDS: ATORVASTATIN 20 MG TAB PO SCH (08:19)
[2022-05-23 08:23] VITALS: BP 163/65
[2022-05-23] MEDS: PROPRANOLOL 20 MG TAB PO SCH (08:23)
[2022-05-23] MEDS: lisinopriL 5 MG TAB PO SCH (08:24)
[2022-05-23] MEDS ORDERED: MAG SULF 1GM/100ML (MAG RUN) 1 GM in IV 1 EA IV ONE (09:00)
[2022-05-30] MEDS ORDERED: OXYC1CAP PO (09:31)
[2022-05-30] MEDS ORDERED: PEPC1TAB5 PO (16:51)
[2022-05-31] MEDS ORDERED: TOLV15TA PO (09:26)
[2022-06-02] MEDS ORDERED: TOLV15TA PO (14:55)
== END 2022-05-23 12:30 | disposition home health service (06) | DRG 391 ==
LOC: EDBD 07:13 → M ED 07:13 → M ED INP 07:14 → OBSVTOIN 13:09 → ENRESERV 05-12 12:10 → M PCU 05-12 14:00 → M MS5PR 05-15 21:59 → M PCU 05-15 21:59 → UNDODISIN 05-23 12:30
PROVIDERS: ADMIT Internal Medicine; ATTEND Internal Medicine
DX: K57.32 Diverticulitis of large intestine without perforation or abscess without bleeding (principal); D61.810 Antineoplastic chemotherapy induced pancytopenia; E22.2 Syndrome of inappropriate secretion of antidiuretic hormone; C34.32 Malignant neoplasm of lower lobe, left bronchus or lung; C78.7 Secondary malignant neoplasm of liver and intrahepatic bile duct; C79.72 Secondary malignant neoplasm of left adrenal gland; I31.9 Disease of pericardium, unspecified; K20.90 Esophagitis, unspecified without bleeding; R07.89 Other chest pain; I10 Essential (primary) hypertension; K59.00 Constipation, unspecified; E78.5 Hyperlipidemia, unspecified; T45.1X5A Adverse effect of antineoplastic and immunosuppressive drugs, initial encounter; N40.1 Benign prostatic hyperplasia with lower urinary tract symptoms; F39 Unspecified mood [affective] disorder; E11.9 Type 2 diabetes mellitus without complications; D72.829 Elevated white blood cell count, unspecified; D69.6 Thrombocytopenia, unspecified; D50.9 Iron deficiency anemia, unspecified; E83.42 Hypomagnesemia; R33.9 Retention of urine, unspecified; G25.0 Essential tremor; E87.6 Hypokalemia; G25.81 Restless legs syndrome; D35.01 Benign neoplasm of right adrenal gland; F43.10 Post-traumatic stress disorder, unspecified; F41.9 Anxiety disorder, unspecified; E83.51 Hypocalcemia; R59.0 Localized enlarged lymph nodes; Z79.4 Long term (current) use of insulin; Z79.899 Other long term (current) drug therapy; Z87.891 Personal history of nicotine dependence

== ENCOUNTER → 2022-05-24 | Outpatient (RCR) | payer MEDICARE ==
[~2022-05-24] MED LIST changes: +AMLO1TAB25 PO; +ATOR1TAB21 PO; +PROP20TA72 PO; +SIME80CH5 PO; +TOLV15TA PO
== END ==
LOC: M ONCR 04-24 10:58
PROVIDERS: ATTEND General Practice
DX: C34.32 Malignant neoplasm of lower lobe, left bronchus or lung (principal)

== ENCOUNTER 2022-06-15 14:32 | Outpatient (RCR) | payer MEDICARE ==
[2022-06-05 16:36] LABS: BASO % 0.7 % (0.0-1.0); EOS % 0.3 % (0.0-3.0); HEMATOCRIT 23.2 % (42.0-52.0); HEMOGLOBIN 8.1 g/dl (13.5-17.5); LYMPH # 0.2 10^3/uL (1.5-5.0); LYMPH % 7.1 % (24.0-44.0); MEAN CORPUSCULAR HEMOGLOBIN 34.3 pg (27.0-33.0); MEAN CORPUSCULAR HGB CONC 34.9 g/dl (32.0-36.5); MEAN CORPUSCULAR VOLUME 98.3 fl (80.0-96.0); MONO # 0.1 10^3/uL (0.0-0.8); MONO % 4.1 % (2.0-8.0); NEUTROPHILS # 2.6 10^3/uL (1.5-8.5); NEUTROPHILS % 87.1 % (36.0-66.0); PLATELET COUNT, AUTOMATED 177 10^3/uL (150-450); RED BLOOD COUNT 2.36 10^6/uL (4.30-6.10)
[2022-06-05 17:26] LABS: ALBUMIN 3.6 GM/DL (3.2-5.2); ALT/SGPT 18 U/L (12-78); BILIRUBIN,TOTAL 0.4 MG/DL (0.2-1.0); BLOOD UREA NITROGEN 14 MG/DL (7-18); CALCIUM LEVEL 8.3 MG/DL (8.8-10.2); CARBON DIOXIDE LEVEL 26 MEQ/L (21-32); CHLORIDE LEVEL 98 MEQ/L (98-107); CREATININE FOR GFR 0.85 MG/DL (0.70-1.30); GLOMERULAR FILTRATION RATE > 60.0 (>42); GLUCOSE, FASTING 160 MG/DL (70-100); POTASSIUM SERUM 3.7 MEQ/L (3.5-5.1); SODIUM LEVEL 131 MEQ/L (136-145); TOTAL PROTEIN 6.7 GM/DL (6.4-8.2)
[2022-06-12 16:34] LABS: BASO % 0.7 % (0.0-1.0); EOS % 0.7 % (0.0-3.0); HEMATOCRIT 24.5 % (42.0-52.0); HEMOGLOBIN 7.7 g/dl (13.5-17.5); LYMPH # 0.2 10^3/uL (1.5-5.0); LYMPH % 7.5 % (24.0-44.0); MEAN CORPUSCULAR HGB CONC 31.4 g/dl (32.0-36.5); MEAN CORPUSCULAR VOLUME 111.4 fl (80.0-96.0); MONO # 0.3 10^3/uL (0.0-0.8); MONO % 9.8 % (2.0-8.0); NEUTROPHILS # 2.5 10^3/uL (1.5-8.5); NEUTROPHILS % 80.3 % (36.0-66.0); PLATELET COUNT, AUTOMATED 114 10^3/uL (150-450); WHITE BLOOD COUNT 3.1 10^3/uL (4.0-10.0)
[2022-06-12 16:48] LABS: ALBUMIN 3.5 GM/DL (3.2-5.2); ALT/SGPT 27 U/L (12-78); BILIRUBIN,TOTAL 0.5 MG/DL (0.2-1.0); BLOOD UREA NITROGEN 15 MG/DL (7-18); CALCIUM LEVEL 8.4 MG/DL (8.8-10.2); CARBON DIOXIDE LEVEL 25 MEQ/L (21-32); CHLORIDE LEVEL 104 MEQ/L (98-107); CREATININE FOR GFR 0.91 MG/DL (0.70-1.30); GLOMERULAR FILTRATION RATE > 60.0 (>42); GLUCOSE, FASTING 145 MG/DL (70-100); POTASSIUM SERUM 4.3 MEQ/L (3.5-5.1); SODIUM LEVEL 136 MEQ/L (136-145); TOTAL PROTEIN 6.5 GM/DL (6.4-8.2)
[~2022-06-15 14:32] MED LIST changes: +OXYC1CAP PO; +PEPC1TAB5 PO
[2022-06-20] MEDS ORDERED: SUCR1SS PO ×2 (10:45→15:50)
== END 2022-06-23 ==
LOC: M ONCR 14:32
PROVIDERS: ATTEND General Practice
DX: C34.32 Malignant neoplasm of lower lobe, left bronchus or lung (principal)

== ENCOUNTER → 2022-06-21 | Outpatient (CLI) | payer OTHER, MEDICARE ==
[~2022-06-21] MED LIST changes: +SUCR1SS PO
== END ==
LOC: M LABSMTC 09:12
PROVIDERS: ATTEND Anesthesiology
DX: Z01.818 Encounter for other preprocedural examination (principal); Z11.52 Encounter for screening for COVID-19

== ENCOUNTER → 2022-06-26 | Outpatient (CLI) | payer MEDICARE ==
[~2022-06-26] MED LIST changes: +LIDOCAINE 1% MDV 20ML VIAL As Ordered ONE; +MIDAZOLAM INJ 2MG/2ML VIAL (J2250 PER 1MG) As Ordered ONE; +NS 1,000 ML IV SCH; +TOLV30TA2 PO; +ceFAZolin 2 GM/D5W 50 ML IV BAG (J0690 PER 500MG) As Ordered ONE; +ceFAZolin SOD 2 GM in IV 1 EA IV ONE; +diphenhydrAMINE 50MG/ML VIAL (J1200) As Ordered ONE; +fentaNYL 100 MCG/2 ML INJECTION As Ordered ONE
[2022-06-26 17:30] VITALS: BP 142/88
== END ==
LOC: M IRPRO 12:32
PROVIDERS: ATTEND Specialist
DX: C34.90 Malignant neoplasm of unspecified part of unspecified bronchus or lung (principal)
CPT/HCPCS: 36561; 99152; 99153; C1769; C1788; C1894; J0690; J1200; J1642; J1644; J2250; J3010

== ENCOUNTER → 2022-07-10 | Outpatient (CLI) | payer MEDICARE ==
[~2022-07-10] MED LIST changes: +ISOVUE-370 76% 100ML VIAL As Ordered ONE; -LIDOCAINE 1% MDV 20ML VIAL As Ordered ONE; -MIDAZOLAM INJ 2MG/2ML VIAL (J2250 PER 1MG) As Ordered ONE; -NS 1,000 ML IV SCH; -ceFAZolin 2 GM/D5W 50 ML IV BAG (J0690 PER 500MG) As Ordered ONE; -ceFAZolin SOD 2 GM in IV 1 EA IV ONE; -diphenhydrAMINE 50MG/ML VIAL (J1200) As Ordered ONE; -fentaNYL 100 MCG/2 ML INJECTION As Ordered ONE
== END ==
LOC: M RAD 10:19
PROVIDERS: ATTEND General Practice
DX: C34.32 Malignant neoplasm of lower lobe, left bronchus or lung (principal); G31.9 Degenerative disease of nervous system, unspecified
CPT/HCPCS: 70470; J1642; Q9967

== ENCOUNTER → 2022-07-11 | Outpatient (POV) | payer MEDICARE ==
[~2022-07-11] VITALS: Ht 175.3 cm; Wt 89.5 kg
[~2022-07-11] MED LIST changes: -ISOVUE-370 76% 100ML VIAL As Ordered ONE
[2022-07-11 09:45] VITALS: BP 135/61
== END ==
LOC: M IRPOV 09:37
PROVIDERS: ATTEND Radiology Diagnostic Radiology
DX: Z45.2 Encounter for adjustment and management of vascular access device (principal)

== ENCOUNTER → 2022-07-14 | Outpatient (CLI) | payer MEDICARE | LOC: M ONCR 13:58 | PROVIDERS: ATTEND General Practice | DX: C34.32 Malignant neoplasm of lower lobe, left bronchus or lung (principal); F40.240 Claustrophobia; Z79.4 Long term (current) use of insulin; Z79.84 Long term (current) use of oral hypoglycemic drugs; Z79.891 Long term (current) use of opiate analgesic; Z79.899 Other long term (current) drug therapy; Z87.891 Personal history of nicotine dependence; Z92.21 Personal history of antineoplastic chemotherapy; Z92.3 Personal history of irradiation ==

== ENCOUNTER → 2022-07-18 | Outpatient (CLI) | payer MEDICARE ==
[2022-07-18 15:20] LABS: BASO % 0.9 % (0.0-1.0); EOS % 0.9 % (0.0-3.0); HEMATOCRIT 24.1 % (42.0-52.0); HEMOGLOBIN 8.5 g/dl (13.5-17.5); LYMPH # 0.4 10^3/uL (1.5-5.0); LYMPH % 10.4 % (24.0-44.0); MEAN CORPUSCULAR HGB CONC 35.3 g/dl (32.0-36.5); MEAN CORPUSCULAR VOLUME 104.8 fl (80.0-96.0); MONO # 0.3 10^3/uL (0.0-0.8); MONO % 10.1 % (2.0-8.0); NEUTROPHILS # 2.6 10^3/uL (1.5-8.5); NEUTROPHILS % 76.5 % (36.0-66.0); WHITE BLOOD COUNT 3.4 10^3/uL (4.0-10.0)
[2022-07-18 15:23] LABS: PLATELET COUNT, AUTOMATED 73 10^3/uL (150-450)
[2022-07-18 15:58] LABS: ALBUMIN 3.6 GM/DL (3.2-5.2); ALT/SGPT 23 U/L (12-78); BILIRUBIN,TOTAL 0.4 MG/DL (0.2-1.0); BLOOD UREA NITROGEN 17 MG/DL (7-18); CALCIUM LEVEL 8.4 MG/DL (8.8-10.2); CARBON DIOXIDE LEVEL 28 MEQ/L (21-32); CHLORIDE LEVEL 99 MEQ/L (98-107); CREATININE FOR GFR 0.92 MG/DL (0.70-1.30); GLOMERULAR FILTRATION RATE > 60.0 (>42); GLUCOSE, FASTING 146 MG/DL (70-100); POTASSIUM SERUM 4.2 MEQ/L (3.5-5.1); SODIUM LEVEL 130 MEQ/L (136-145); TOTAL PROTEIN 6.9 GM/DL (6.4-8.2)
== END ==
LOC: M ONCR 14:17
PROVIDERS: ATTEND General Practice
DX: C34.32 Malignant neoplasm of lower lobe, left bronchus or lung (principal)

== ENCOUNTER → 2022-08-03 | Outpatient (CLI) | payer MEDICARE ==
[~2022-08-03] MED LIST changes: +E-Z-GAS II EFFERVESCENT PACKET (SODIUM BICARB./CITRIC ACID/SIMETHICONE) As Ordered ONE; +E-Z-HD 98% w/w 340GM SUSP BTL As Ordered ONE; +E-Z-PAQUE 96% w/w SUSP 176GM BTL As Ordered ONE; +PROBCAP14 PO; +[UNRECOGNIZED DRUG - CODE] PO
== END ==
LOC: M RAD 09:16
PROVIDERS: ATTEND Internal Medicine Gastroenterology
DX: R14.0 Abdominal distension (gaseous) (principal); K44.9 Diaphragmatic hernia without obstruction or gangrene

== ENCOUNTER 2022-08-22 11:14 | Observation (INO) | payer MEDICARE, OTHER ==
[~2022-08-22] VITALS: Ht 175.3 cm; Wt 87.3 kg
[~2022-08-22 11:14] MED LIST changes: -E-Z-GAS II EFFERVESCENT PACKET (SODIUM BICARB./CITRIC ACID/SIMETHICONE) As Ordered ONE; -E-Z-HD 98% w/w 340GM SUSP BTL As Ordered ONE; -E-Z-PAQUE 96% w/w SUSP 176GM BTL As Ordered ONE; +METH-1164 PO
[2022-08-22] MEDS ORDERED: SODIUM CHLORIDE 0.9% INJ 10 ML SYR IV PRN (11:45)
[2022-08-22 12:23] LABS: HEMATOCRIT 22.6 % (42.0-52.0); HEMOGLOBIN 7.6 g/dl (13.5-17.5); MEAN CORPUSCULAR HEMOGLOBIN 33.2 pg (27.0-33.0); MEAN CORPUSCULAR HGB CONC 33.6 g/dl (32.0-36.5); MEAN CORPUSCULAR VOLUME 98.7 fl (80.0-96.0); RED BLOOD COUNT 2.29 10^6/uL (4.30-6.10)
[2022-08-22 12:28] LABS: PLATELET COUNT, AUTOMATED 22 10^3/uL (150-450)
[2022-08-22 12:47] LABS: CHLORIDE LEVEL 104 MMOL/L (98-107); SODIUM LEVEL 140 MMOL/L (136-145)
[2022-08-22 12:48] LABS: CARBON DIOXIDE LEVEL 26 MMOL/L (20-31)
[2022-08-22 12:48] LABS: RSV AMPLIFICATION NEGATIVE (NEGATIVE)
[2022-08-22 12:49] LABS: ANISOCYTOSIS 1+; BASOPHILS 1 % (0-1); EOSINOPHILS 1 % (0-3); LYMPHOCYTES 2 % (16-44); METAMYELOCYTES 5 % (0-0); MONOCYTES 3 % (0-5); MYELOCYTES 3 % (0-0); NEUTROPHILS 79 % (28-66); PLATELET ESTIMATE MARKED DECREASE (NORMAL)
[2022-08-22 12:50] LABS: TEAR DROP CELLS 3+
[2022-08-22 12:51] LABS: OVALOCYTES 1+
[2022-08-22 12:53] LABS: BLOOD UREA NITROGEN 33 MG/DL (9-23); CALCIUM LEVEL 8.5 MG/DL (8.3-10.6); GLUCOSE, FASTING 134 MG/DL (74-106)
[2022-08-22 12:55] LABS: CREATININE FOR GFR 0.71 MG/DL (0.70-1.30); GLOMERULAR FILTRATION RATE > 60.0 (>42)
[2022-08-22 12:57] LABS: POTASSIUM SERUM 2.5 MMOL/L (3.5-5.1)
[2022-08-22] MEDS ORDERED: LORazepam 2 MG/ML VIAL IV ONE (14:40)
[2022-08-22] MEDS ORDERED: oxyCODONE 5MG TAB PO ONE (14:55)
[2022-08-22] MEDS ORDERED: PROHANCE 279.3MG/ML 5ML VIAL As Ordered ONE (17:21)
[2022-08-22] MEDS ORDERED: PROHANCE 279.3MG/ML 15ML VIAL As Ordered ONE (17:22)
[2022-08-22] MEDS ORDERED: LORazepam 2 MG/ML VIAL IV STA (18:11)
[2022-08-22 22:28] VITALS: BP 187/86
[2022-08-22 22:42] VITALS: BP 150/70
[2022-08-22] MEDS ORDERED: SODI1TAB6 PO (22:49)
[2022-08-22] MEDS ORDERED: CYAN1000VL IM (22:49)
[2022-08-22] MEDS ORDERED: PRES10CA2 PO (22:49)
[2022-08-22] MEDS ORDERED: ACID1TAB PO (22:49)
[2022-08-22] MEDS ORDERED: SPIR12.9 INH (22:49)
[2022-08-22] MEDS ORDERED: ALBU8.5H INH (22:49)
[2022-08-22] MEDS ORDERED: METF-838 PO (22:49)
[2022-08-22] MEDS ORDERED: SENN-23 PO (22:49)
[2022-08-22] MEDS ORDERED: FINA5TAB2 PO (22:49)
[2022-08-22] MEDS ORDERED: TERA2CAP3 PO (22:49)
[2022-08-22] MEDS ORDERED: IBUP1TAB6 PO (22:49)
[2022-08-22] MEDS ORDERED: NOVOINJ SC (22:49)
[2022-08-22] MEDS ORDERED: FERR324T2 PO (22:49)
[2022-08-22] MEDS ORDERED: INSUH10VL SC (22:49)
[2022-08-22] MEDS ORDERED: METH-1164 PO (22:49)
[2022-08-22] MEDS ORDERED: HOME MED LIST COMPLETE! XX SCH (22:50)
[2022-08-23] MEDS ORDERED: KCL 10MEQ/100ML SWI (KRUN) 10 MEQ in IV 1 EA IV ONE (00:20)
[2022-08-23 02:40] VITALS: BP 170/68
[2022-08-23] MEDS ORDERED: MORPHINE 2 MG/ML 1ML VIAL IV PRN (06:30)
[2022-08-23 06:36] LABS: HEMATOCRIT 25.1 % (42.0-52.0); HEMOGLOBIN 8.7 g/dl (13.5-17.5); MEAN CORPUSCULAR HEMOGLOBIN 33.1 pg (27.0-33.0); MEAN CORPUSCULAR HGB CONC 34.7 g/dl (32.0-36.5); MEAN CORPUSCULAR VOLUME 95.4 fl (80.0-96.0); RED BLOOD COUNT 2.63 10^6/uL (4.30-6.10); WHITE BLOOD COUNT 6.1 10^3/uL (4.0-10.0)
[2022-08-23 06:38] LABS: PLATELET COUNT, AUTOMATED 25 10^3/uL (150-450)
[2022-08-23 07:02] LABS: CHLORIDE LEVEL 106 MMOL/L (98-107); SODIUM LEVEL 143 MMOL/L (136-145)
[2022-08-23 07:04] LABS: CARBON DIOXIDE LEVEL 24 MMOL/L (20-31)
[2022-08-23 07:08] LABS: BLOOD UREA NITROGEN 33 MG/DL (9-23)
[2022-08-23 07:09] LABS: CALCIUM LEVEL 8.9 MG/DL (8.3-10.6); GLUCOSE, FASTING 134 MG/DL (74-106)
[2022-08-23 07:11] LABS: CREATININE FOR GFR 0.67 MG/DL (0.70-1.30); GLOMERULAR FILTRATION RATE > 60.0 (>42)
[2022-08-23 07:17] LABS: POTASSIUM SERUM 2.8 MMOL/L (3.5-5.1)
[2022-08-23] MEDS ORDERED: POTASSIUM CHLORIDE 10MEQ SR TABLET PO ONE (08:45)
[2022-08-23 10:00] VITALS: BP 197/90
[2022-08-23] MEDS ORDERED: MORPHINE 10MG/0.5ML ORAL CONCENTRATE SOLUTION U/D SL PRN (11:45)
[2022-08-23] MEDS: LORazepam 2 MG/ML VIAL IV PRN ×2 (12:11→18:30)
[2022-08-23] MEDS ORDERED: MORPHINE SULF IN 0.9% NACL 100 MG in IV 1 EA IV SCH ×2 (13:00)
[2022-08-24] MEDS ORDERED: ATROPINE SULFATE 1% OPHTH SOLN 2ML BTL SL PRN (04:15)
[2022-08-24] MEDS ORDERED: SCOPOLAMINE 1MG TRANSDERMAL PATCH TOP SCH (05:00)
== END 2022-08-24 10:31 | disposition expired ==
LOC: M ED 11:14 → M ED INP 11:15 → UNDOADMOB 08-23 11:15 → M ED INP 08-23 11:15 → ENRESERV 08-23 14:22 → M MSPAV 08-23 15:45 → M ED INP 08-23 15:45 → UNDODISOB 08-24 10:31
PROVIDERS: ADMIT Internal Medicine; ATTEND Internal Medicine
DX: G93.41 Metabolic encephalopathy (principal); J96.00 Acute respiratory failure, unspecified whether with hypoxia or hypercapnia; C34.90 Malignant neoplasm of unspecified part of unspecified bronchus or lung; D64.81 Anemia due to antineoplastic chemotherapy; E87.6 Hypokalemia; M54.9 Dorsalgia, unspecified; G89.29 Other chronic pain; C79.51 Secondary malignant neoplasm of bone; C79.31 Secondary malignant neoplasm of brain; E11.9 Type 2 diabetes mellitus without complications; I10 Essential (primary) hypertension; E83.42 Hypomagnesemia; K21.9 Gastro-esophageal reflux disease without esophagitis; G25.81 Restless legs syndrome; F32.A Depression, unspecified; N40.0 Benign prostatic hyperplasia without lower urinary tract symptoms; G25.0 Essential tremor; Z51.5 Encounter for palliative care; Z79.899 Other long term (current) drug therapy; Z79.4 Long term (current) use of insulin; Z79.84 Long term (current) use of oral hypoglycemic drugs
CPT/HCPCS: 36430; 36591; 70450; 70551; 72131; 72148; 80048; 80053; 83735; 85025; 85027; 85049; 85055; 86850; 86900; 86901; 86920; 87040; 87077; 87186; 87631; 93005; 96374; 96375; 96376; 99285; A9576; G0378; G0463; J1100; J1642; J2060; J2270; P9016; P9034